=== PATIENT | male | born 1960 | race Caucasian/White ===

== ENCOUNTER 2016-07-21 15:16 | Inpatient (IN) | payer OTHER ==
[~2016-07-21] VITALS: Ht 165.1 cm; Wt 61.7 kg
[~2016-07-21 15:16] MED LIST: OXYCODONE HCL5 M1 PO
--- NOTE | 2016-07-21 15:22 | NUR ---
BIBA FROM HOME C/C LOW BACK PAIN RADIATING DOWN LEFT LEG, +SENSATION. STATES PAIN IS ACHING AND SHOOTING TO L HIP. HX METASTATIC LUNG CA, NO LONGER IN TREATMENT. PT REPORTS HE SLID ONTO HIS FLOOR AND HAS BEEN ON HIS SIDE ON THE FLOOR FOR 2 1/2 DAYS. DOES REPORT HE WAS ABLE TO EAT AND DRINK AND TOOK OXY FOR PAIN. 1PPD SMOKER. ARRIVES TACHY 120'S AND O2 SAT STABLE 98% ROOM AIR. AAOX3
--- NOTE | 2016-07-21 15:27 | NUR ---
PT STATES HE WAS DIAGNOSED WITH LUNG CA 8 MONTHS AGO AND REFUSED SEEING ONCOLOGIST OR SPECIALIST. REFUSING TREATMENT OR ONCOLOGY INTERVENTION. 2PPD SMOKER, AMDENDMENT FROM PREVIOUS NOTE. PT REPORTS PAIN IS 15/10 TO LOW BACK AND L HIP.
[2016-07-21 15:39] LABS: ABSOLUTE BASOPHIL COUNT 0.1 /CUMM (0.0-0.2); ABSOLUTE EOSINOPHIL COUNT 0.2 /CUMM (0.0-0.7); ABSOLUTE GRANULOCYTE CT 7.5 /CUMM (1.4-6.5); ABSOLUTE LYMPH COUNT 1.2 /CUMM (1.2-3.4); ABSOLUTE MONOCYTE COUNT 0.8 /CUMM (0.10-0.60); BASOPHIL % 0.5 % (0.0-2.0); EOSINOPHIL % 1.7 % (0-5); GRANULOCYTE % 77.5 % (42.2-75.2); HEMATOCRIT 30.5 % (42-52); MEAN CORPUSCULAR HGB 25.1 PG (27.0-31.0); MEAN CORPUSCULAR HGB CONC 32.1 G/DL (33.0-37.0); MEAN CORPUSCULAR VOLUME 78.3 FL (80.0-94.0); MEAN PLATELET VOLUME 7.8 FL (7.4-10.4); PLATELET COUNT 475 /CUMM (130-400); RBC DISTRIBUTION WIDTH 17.2 % (11.5-14.5); RED BLOOD CELL CT 3.89 /CUMM (4.70-6.10); WHITE BLOOD CELL COUNT 9.6 /CUMM (4.8-10.8)
--- NOTE | 2016-07-21 15:43 | ED GENERAL ADULT ---
History of Present Illness General Chief Complaint: Low Back Pain/Injury Stated Complaint: LOW BACK PAIN Source: patient, old records, EMS Exam Limitations: no limitations Vital Signs & Intake/Output Vital Signs & Intake/Output Vital Signs Date Time Temp Pulse Resp B/P Pulse O2 O2 Flow FiO2 Ox Delivery Rate 07/24 0630 99.4 110 20 114/70 91 Room Air 07/24 0000 99.6 98 20 120/70 /15 0000 94 / 2142 99.6 98 20 120/70 94 07/23 1658 Room Air 07/23 1525 99.2 115 20 128/74 90 Room Air 07/23 1400 99.2 115 20 128/74 07/23 1000 98.9 108 20 120/64 /14 1000 98.9 108 20 120/64 87 Room Air 07/23 0759 98.6 112 20 100/68 90 Room Air ED Intake and Output 07/24 0000 07/23 1200 Intake Total 2125 800 Output Total 700 925 Balance 1425 -125 Intake, IV 1125 600 Intake, Oral 1000 200 Output, Urine 700 925 Patient 136 lb Weight Allergies Coded Allergies: clarithromycin (From BIAXIN) (Severe, FACE AND THROAT SWELLING 07/21/16) Triage Note: BIBA FROM HOME C/C LOW BACK PAIN RADIATING DOWN LEFT LEG, +SENSATION. STATES PAIN IS ACHING AND SHOOTING TO L HIP. HX METASTATIC LUNG CA, NO LONGER IN TREATMENT. PT REPORTS HE SLID ONTO HIS FLOOR AND HAS BEEN ON HIS SIDE ON THE FLOOR FOR 2 1/2 DAYS. DOES REPORT HE WAS ABLE TO EAT AND DRINK AND TOOK OXY FOR PAIN. 1PPD SMOKER. ARRIVES TACHY 120'S AND O2 SAT STABLE 98% ROOM AIR. AAOX3 Triage Nurses Notes Reviewed? yes HPI: Patient is a 56 year old male with history of metastatic lung cancer, arthritis, fibromyalgia. Presents complaining of severe low back pain and severe pain radiating into his left hip, and thigh. Patient reports he was sitting on the couch when he had sudden onset of severe pain. Patient then slid off of the couch onto the ground. Patient was on the floor for 2-3 days before he called 911. Patient had a friend that was helping him, but he would not let his friend call 911 until today. Patient took his oxycodone this morning at 0530 without improvement. Pain is currently 10/10, sharp, shooting pain worsens with movement and palpation. Patient denies head injury, loss of consciousness, abnormal bleeding, numbness. Patient is not undergoing treatment for his cancer. (JOSE BOX) Reconcile Medications Albuterol Sulfate (Proventil Hfa) 90 MCG HFA.AER.AD 2 PUFF INH PRN SOB ( Reported) Budesonide/Formoterol Fumarate (Symbicort 160-4.5 Mcg Inhaler) 160 MCG-4.5 MCG/ ACTUATION HFA.AER.AD 2 PUFF INH BID LUNG CA/SOB (Reported) Furosemide 40 MG TABLET 1 TAB PO DAILY KIDNEY HEALTH (Reported) Oxycodone HCl 30 MG TABLET 1 TAB PO PRN PAIN (Reported) Potassium Chloride 20 MEQ TAB.ER.PRT 1 TAB PO DAILY SUPP (Reported) Prednisone 10 MG TABLET 1 TAB PO DAILY PNA (Reported) (SONIDO RODRIGUEZ MD) Past History Travel History Traveled to [place] past 21 day No Medical History Any Pertinent Medical History? see below for history Neurological: FIBROMYALGIA EENT: NONE Cardiovascular: hypertension Respiratory: LUNG CA Gastrointestinal: NONE Hepatic: NONE Renal: NONE Musculoskeletal: rheumatoid arthritis Psychiatric: NONE Endocrine: NONE Blood Disorders: NONE Cancer(s): NONE Surgical History Surgical History: multiple orthopedic surgeries Psychosocial History What is your primary language Ukrainian Tobacco Use: Current Daily Use Daily Tobacco Use Amount/Type: => 5 Cigarettes daily ETOH Use: occasional use Illicit Drug Use: denies illicit drug use Family History Hx Contributory? No (JOSE BOX) Review of Systems Review of Systems Constitutional: Reports: weakness. Denies: chills, fever. EENTM: Reports: no symptoms. Respiratory: Denies: cough, short of breath. Cardiovascular: Denies: chest pain, syncope. GI: Denies: abdominal pain, diarrhea, vomiting. Genitourinary: Reports: no symptoms. Musculoskeletal: Reports: see HPI, back pain, joint pain (left hip). Skin: Reports: no symptoms. Neurological/Psychological: Denies: headache, numbness, paresthesia. Hematologic/Endocrine: Denies: bruising, bleeding. Immunologic/Allergic: Denies: splenectomy. (JOSE BOX) Physical Exam Physical Exam General Appearance: alert, awake Head: atraumatic, normal appearance Eyes: Bilateral: normal appearance, PERRL, EOMI. Ears, Nose, Throat: normal pharynx, normal ENT inspection, hearing grossly normal Neck: normal inspection, supple, full range of motion, no midline tenderness Respiratory: normal breath sounds, chest non-tender, no respiratory distress, lungs clear Cardiovascular: tachycardia, regular rhythm, no murmur Peripheral Pulses: 2+ radial (L) Gastrointestinal: soft, non-tender Back: normal inspection, normal range of motion, tenderness midline lumbar and sacral Extremities: normal inspection, normal capillary refill, normal range of motion, tenderness left hip laterally and left mid femur. Pain increases with left hip flexion Neurologic/Psych: awake, alert, oriented x 3 Skin: intact, normal color, warm/dry Lymphatic: no anterior cervical tomás Core Measures ACS in differential dx? No CVA/TIA Diagnosis: No Severe Sepsis Present: No Septic Shock Present: No (JOSE BOX) Progress Differential Diagnoses I considered the following diagnoses in my evaluation of the patient: Rhabdomyolysis, hip fracture, compression fracture, sacral fracture, pathologic fracture, electrolyte abnormality, cord compresison, cauda equina. Plan of Care: Orders Procedure Date/time Status Lab Add-on Test 07/23 0704 Active ALBUMIN 07/23 0650 Complete Therapeutic Exercise 07/23 UNK Complete Current Medications Sig/Bonnie Start time Last Medication Dose Stop Time Status Admin Bisacodyl 5 MG DAILY 07/23 1000 AC (Dulcolax) Lorazepam 0 Q1P PRN 07/22 1015 AC (Ativan) Nicotine 21 MG DAILY 07/22 1000 AC (Nicoderm) Polyethylene Glycol 17 GM DAILY 07/22 1000 AC (Miralax) Senna/Docusate Sodium 2 TAB DAILY 07/22 1000 AC (Senokot S) Enoxaparin Sodium 40 MG AT BEDTIME 07/21 2200 AC (Lovenox) Acetaminophen 650 MG Q6P PRN 07/21 2115 AC (Tylenol) Laboratory Tests 07/24/16 0620: Sodium Pending, Potassium Pending, Chloride Pending, Carbon Dioxide Pending, Anion Gap Pending, BUN Pending, Creatinine Pending, BUN/Creatinine Ratio Pending , Calcium Pending, Magnesium Pending 1750: Patient reports pain is improved at rest. With cough and movement pain is severe. Discussed results with patient. Dr. Pinky tolbert to discuss. 07/21/2016 6:16:26 PM: Discussed with neurosurgical ANANT Luna who discussed the case with Dr. Vance: no neurosurgical interventions. Would recommend admission to medicine for pain control, and consult Dr. Valencia for ortho consult tomorrow. 07/21/2016 7:08:55 PM: Patient reevaluated, reports that pain had been improving, has returned and is becoming severe. Additional pain medication ordered. Discussed with Dr. Rodriguez. Hospitalist paged to discuss. (MEGAN NY,JOSE) Diagnostic Imaging: Viewed by Me: Radiology Read. Discussed w/RAD: Radiology Read. Radiology Impression: PATIENT: VIDAL AGUAYO PRESENT AGE: 56 PATIENT ACCOUNT NO: [id number] : 60 LOCATION: [facility] ORDERING PHYSICIAN: JOSE [place] SERVICE DATE: 07/21/16 EXAM TYPE: RAD - XRY-SHOULDER COMPLETE-LEFT EXAMINATION: XR SHOULDER, LEFT CLINICAL INFORMATION: Severe left shoulder pain. History of metastatic cancer. COMPARISON: No relevant prior studies are available for comparison. TECHNIQUE: Three views of the left shoulder. FINDINGS: No fracture or dislocation. Acromioclavicular joint space narrowing with small marginal osteophytes. Glenohumeral joint space narrowing with small marginal osteophytes. No osseous erosion. No abnormal soft tissue calcification. IMPRESSION: 1. No fracture or dislocation. 2. Mild acromioclavicular and glenohumeral osteoarthritis. DICTATED BY: OPAL JOYNER MD DATE/TIME DICTATED:07/21/161616 COOK COLD MEAT:MAURI DATE/TIME TRANSCRIBED:07/21/161616 CONFIDENTIAL, DO NOT COPY WITHOUT APPROPRIATE AUTHORIZATION. <Electronically signed in Other Vendor System> SIGNED BY: OPAL JOYNER MD 07/21/161633, PATIENT: VIDAL AGUAYO PRESENT AGE: 56 PATIENT ACCOUNT NO: [id number] : 60 LOCATION: [facility] ORDERING PHYSICIAN: JOSE [place] SERVICE DATE: 07/21/16 EXAM TYPE: CAT - CT LUMB SPINE WO IV CONTRAST EXAMINATION: CT LUMBAR SPINE WITHOUT CONTRAST CLINICAL INFORMATION: Severe low back pain. History of metastatic disease. COMPARISON: No relevant prior imaging available. TECHNIQUE: Helical non -contrast CT images were obtained through the lumbar spine and 1.25 and 2.5 mm axial reconstructions were reviewed along with sagittal and coronal MPRs. DLP: 304.99 mGy-cm FINDINGS: There is an acute sacral fracture with a pronounced sagittal component extending through the S1 sacral body best visualized on coronal image 46 of 80 series 602. Nondisplaced acute fractures are also suspected to involve both sacral ala. There is anatomic alignment and position of the vertebral bodies and posterior elements of the lumbar spine in the sagittal dimension. Vertebral body heights are preserved. Intervertebral disc spaces are maintained. No worrisome lytic or blastic osseous lesion is visualized within the [id number] this examination. At T12-L1, and L1-L2 the annular contours are normal. No canal or neuroforaminal compromise at these 2 levels. At L2-L3 there is slight diffuse annular bulge. No canal stenosis. No foraminal nerve root compression. At L3-L4 there is a slight diffuse annular bulge. No canal stenosis. No foraminal nerve root compression. At L4-L5 there is a shallow central protrusion superimposed upon a diffusely bulging disc causing indentation of the ventral thecal sac. Mild bilateral facet degenerative change. No canal stenosis. No foraminal nerve root compression. At L5-S1 there is an asymmetric annular bulge to the left. Bilateral facet degenerative change. No canal stenosis. No foraminal nerve root compression. Limited visualization of the retroperitoneal structures reveals a few nonobstructive calculi within the calyces of both kidneys. Calcified atheromatous plaque involves the infrarenal abdominal aorta and iliac vessels. There is a focal ectatic segment of the left common iliac artery that measures 1.4 cm in diameter. IMPRESSION: There is an acute sacral fracture with a pronounced sagittal component extending through the S1 sacral body. Nondisplaced acute fractures are also suspected to involve both sacral ala. Although there is no clear evidence of obvious lytic changes within the sacrum the possibility of a pathological fracture cannot be excluded particularly with the clinical history of metastatic disease. An MRI of the pelvis without and with contrast may be necessary for better anatomic characterization of this finding. There is a focal ectatic segment of the left common iliac artery that measures 1.4 cm in diameter. Nonobstructing calculi are visualized within the calyces of both kidneys. DICTATED BY: LAUREN HE,SANDRA Greenfield DATE/TIME DICTATED:07/21/161650 COOK COLD MEAT:MAURI DATE/TIME TRANSCRIBED:07/21/161650 CONFIDENTIAL, DO NOT COPY WITHOUT APPROPRIATE AUTHORIZATION. <Electronically signed in Other Vendor System> SIGNED BY: SANDRA AGUILAR MD 07/21/161704, PATIENT: VIDAL AGUAYO PRESENT AGE: 56 PATIENT ACCOUNT NO: [id number] : 60 LOCATION: [facility] ORDERING PHYSICIAN: JOSE [place] SERVICE DATE: 07/21/16 EXAM TYPE: CAT - CT LOWER EXT WO IV CONTRAST EXAMINATION: CT LOWER EXTREMITY WITHOUT CONTRAST, LEFT CLINICAL INFORMATION: Left hip pain following a fall to the floor 2-3 days ago. Metastatic lung cancer. Evaluate for a fracture, bone lesion. COMPARISON: No relevant prior studies are available for comparison. TECHNIQUE: Axial CT images of the left femur were acquired. Sagittal and coronal reconstructions were provided and reviewed. DLP: 2192.07 mGy-cm. FINDINGS: BONES : No fracture or dislocation. No significant joint space narrowing. Small acetabular marginal osteophytes and peripheral subchondral cysts. No lytic or blastic osseous lesion. MUSCLES/TENDONS: Mild diffuse muscle atrophy. The visualized muscles and tendons appear grossly intact. SOFT TISSUES: No abnormal soft tissue mass or fluid collection. The visualized pelvic structures are unremarkable. There are atherosclerotic calcifications within the common iliac artery. IMPRESSION: 1. No fracture. 2. No lytic or blastic osseous lesion. 3. Mild left hip osteoarthritis. DICTATED BY: OPLA JOYNER MD DATE/TIME DICTATED:07/21/161641 COOK COLD MEAT:MAURI DATE/TIME TRANSCRIBED:1641 CONFIDENTIAL, DO NOT COPY WITHOUT APPROPRIATE AUTHORIZATION. < Electronically signed in Other Vendor System> SIGNED BY: OPAL JOYNER MD 07/21/161654 Initial ED EKG: sinus tachycardia 117 bpm, normal axis, normal intervals, no acute st/t wave changes Rhythm Strip: sinus tachycardia (JOSE BOX) Departure Departure Time of Disposition: 1917 Disposition: STILL A PATIENT Condition: Stable Clinical Impression Primary Impression: Sacral fracture, closed Qualifiers: Encounter type: initial encounter Zone of sacrum fracture: unspecified portion of sacrum Qualified Code: S32.10XA - Unspecified fracture of sacrum, initial encounter for closed fracture Secondary Impressions: Intractable back pain Referrals: PATIENT HAS NO PRIMARY CARE DR Departure Forms: Customer Survey General Discharge Information Admission Note Spoke With: SHARMILA MARCUM MD Documentation of Exam: Documentation of any treatments & extenuating circumstances including Concerns Regarding Discharge (functional status, medication knowledge or non-compliance, living conditions, etc.) that warrant an admission rather than observation: Requiring parenteral pain control, orthopedic consultation, physical therapy consultation. Patient unable to ambulate despite doses of IV pain medication. Unsafe for discharge. (JOSE BOX) PA/PROGRAM ARRANGER Co-Sign Statement Statement: ED Attending supervision documentation- X I saw and evaluated the patient. I have also reviewed all the pertinent lab results and diagnostic results. I agree with the findings and the plan of care as documented in the PA's/PROGRAM ARRANGER's documentation. [] I have reviewed the ED Record and agree with the PA's/PROGRAM ARRANGER's documentation. [] Additions or exceptions (if any) to the PAs/PROGRAM ARRANGER's note and plan are summarized below: [] (JENNIFER HE,SONIDO) Critical Care Note Critical Care Note Critical Care Time: non-applicable (JOSE BOX)
--- NOTE | 2016-07-21 15:43 | NUR ---
ANANT GUZMAN AT BEDSIDE FOR EVAL
--- NOTE | 2016-07-21 15:55 | NUR ---
MEDICTED PER eMAR AND PT TO XRAY
[2016-07-21] MEDS ORDERED: OXYCODONE HCL15 M1 PO (15:56)
[2016-07-21] MEDS ORDERED: SYMBICORT 16010.2 GM INH (15:57)
[2016-07-21] MEDS ORDERED: PROVENTIL HFA6.7 GM INH (15:57)
[2016-07-21] MEDS ORDERED: PREDNISONE10 M2 PO (15:58)
[2016-07-21] MEDS ORDERED: POTASSIUM CHLO20 ME2 PO (15:58)
--- NOTE | 2016-07-21 16:15 | NUR ---
PT DIRECTLY TO CT FROM RADIOLOGY
--- NOTE | 2016-07-21 16:34 | RADIOLOGY REPORT ---
EXAMINATION: XR SHOULDER, LEFT CLINICAL INFORMATION: Severe left shoulder pain. History of metastatic cancer. COMPARISON: No relevant prior studies are available for comparison. TECHNIQUE: Three views of the left shoulder. FINDINGS: No fracture or dislocation. Acromioclavicular joint space narrowing with small marginal osteophytes. Glenohumeral joint space narrowing with small marginal osteophytes. No osseous erosion. No abnormal soft tissue calcification. IMPRESSION: 1. No fracture or dislocation. 2. Mild acromioclavicular and glenohumeral osteoarthritis.
--- NOTE | 2016-07-21 16:55 | CT SCAN REPORT ---
EXAMINATION: CT LOWER EXTREMITY WITHOUT CONTRAST, LEFT CLINICAL INFORMATION: Left hip pain following a fall to the floor 2-3 days ago. Metastatic lung cancer. Evaluate for a fracture, bone lesion. COMPARISON: No relevant prior studies are available for comparison. TECHNIQUE: Axial CT images of the left femur were acquired. Sagittal and coronal reconstructions were provided and reviewed. DLP: 2192.07 mGy-cm. FINDINGS: BONES: No fracture or dislocation. No significant joint space narrowing. Small acetabular marginal osteophytes and peripheral subchondral cysts. No lytic or blastic osseous lesion. MUSCLES/TENDONS: Mild diffuse muscle atrophy. The visualized muscles and tendons appear grossly intact. SOFT TISSUES: No abnormal soft tissue mass or fluid collection. The visualized pelvic structures are unremarkable. There are atherosclerotic calcifications within the common iliac artery. IMPRESSION: 1. No fracture. 2. No lytic or blastic osseous lesion. 3. Mild left hip osteoarthritis.
--- NOTE | 2016-07-21 17:05 | CT SCAN REPORT ---
EXAMINATION: CT LUMBAR SPINE WITHOUT CONTRAST CLINICAL INFORMATION: Severe low back pain. History of metastatic disease. COMPARISON: No relevant prior imaging available. TECHNIQUE: Helical non-contrast CT images were obtained through the lumbar spine and 1.25 and 2.5 mm axial reconstructions were reviewed along with sagittal and coronal MPRs. DLP: 304.99 mGy-cm FINDINGS: There is an acute sacral fracture with a pronounced sagittal component extending through the S1 sacral body best visualized on coronal image 46 of 80 series 602. Nondisplaced acute fractures are also suspected to involve both sacral ala. There is anatomic alignment and position of the vertebral bodies and posterior elements of the lumbar spine in the sagittal dimension. Vertebral body heights are preserved. Intervertebral disc spaces are maintained. No worrisome lytic or blastic osseous lesion is visualized within the [id number] this examination. At T12-L1, and L1-L2 the annular contours are normal. No canal or neuroforaminal compromise at these 2 levels. At L2-L3 there is slight diffuse annular bulge. No canal stenosis. No foraminal nerve root compression. At L3-L4 there is a slight diffuse annular bulge. No canal stenosis. No foraminal nerve root compression. At L4-L5 there is a shallow central protrusion superimposed upon a diffusely bulging disc causing indentation of the ventral thecal sac. Mild bilateral facet degenerative change. No canal stenosis. No foraminal nerve root compression. At L5-S1 there is an asymmetric annular bulge to the left. Bilateral facet degenerative change. No canal stenosis. No foraminal nerve root compression. Limited visualization of the retroperitoneal structures reveals a few nonobstructive calculi within the calyces of both kidneys. Calcified atheromatous plaque involves the infrarenal abdominal aorta and iliac vessels. There is a focal ectatic segment of the left common iliac artery that measures 1.4 cm in diameter. IMPRESSION: There is an acute sacral fracture with a pronounced sagittal component extending through the S1 sacral body. Nondisplaced acute fractures are also suspected to involve both sacral ala. Although there is no clear evidence of obvious lytic changes within the sacrum the possibility of a pathological fracture cannot be excluded particularly with the clinical history of metastatic disease. An MRI of the pelvis without and with contrast may be necessary for better anatomic characterization of this finding. There is a focal ectatic segment of the left common iliac artery that measures 1.4 cm in diameter. Nonobstructing calculi are visualized within the calyces of both kidneys.
--- NOTE | 2016-07-21 17:28 | NUR ---
MEDICATED WITH TORADOL AND ADDITIONAL DILAUDID PER eMAR
--- NOTE | 2016-07-21 17:48 | NUR ---
ANANT GUZMAN AT BEDSIDE TO DISCUSS TEST RESULTS
--- NOTE | 2016-07-21 19:03 | NUR ---
ANANT GUZMAN AT BEDSIDE FOR REEVAL. PT REPORTS PAIN AND REQUESTING MORE MEDICINE
--- NOTE | 2016-07-21 19:20 | NUR ---
MEDICATED WITH ADDITIONAL DILAUDID PER eMAR AND PT INFORMED OF PLAN FOR ADMISSION
--- NOTE | 2016-07-21 20:00 | NUR ---
HOUSE STAFF AT BEDSIDE FOR EVALUATION
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
--- NOTE | 2016-07-21 20:43 | NUR ---
HOUSE STAFF AT BEDSIDE
--- NOTE | 2016-07-21 20:53 | NUR ---
Emergency Dept [facility] Admit Note: To be admitted to [facility] by DR MARCUM with SACRAL FRACTURE as the diagnosis, to [facility], ROOM 223-01 location. Nursing Computer Technologist and admitting notified 07/21/16 at [facility]
[2016-07-21] MEDS ORDERED: FUROSEMIDE40 M1 PO (21:16)
--- NOTE | 2016-07-21 21:28 | NUR ---
TRANSPORT HERE FOR PT
--- NOTE | 2016-07-21 21:29 | NUR ---
MED WITH DILAUDID PER eMAR
[2016-07-21 22:00] VITALS: BP 143/96
[2016-07-21 22:34] VITALS: BP 154/90
[2016-07-22] VITALS (7 sets, daily range): BP systolic 130–154; BP diastolic 80–90
--- NOTE | 2016-07-22 00:04 | NUR ---
PT ARRIVED TO FLOOR AT . 2144. LUNGS DIMINISHED, NO C/O SOB, CP. C/O PAIN IMPROVING SINCE LAST INSPECTOR SET UP AND LAY OUT. NS @ 75ML/HR PROVIDED PER EMAR. BED LOW, LOCKED, CALL ROSALES WITHIN REACH, BED ALARM ENGAGED. 1 PACK CIGGARETTES AND 1 MANAGER RADIATION IN MED ROOM. PT AWARE, VERBALIZED UNDERSTANDING OF RECEIVING UPON D/C. PT DOWN TO CT SCAN PER ORDER. MAINTAIN SAFETY PRECATIONS, PAIN MANAGEMENT.
--- NOTE | 2016-07-22 03:20 | Admission Certification ---
Admission Certification Certification Statement - As attending physician, I certify that at the time of - admission, based on clinical presentation, severity of - symptoms, need for further diagnostic testing and - therapeutic interventions, and risk of adverse outcomes - without in-hospital treatment, in my clinical assessment, - this patient requires an acute hospital stay for a minimum - of two nights or longer. I have also considered psychsocial - factors such as support system, advanced age, financial - issues, cognitive issues, and failed out-patient treatments, - past re-admission history, safety of patient, and lack of - compliance as applicable. Specific rationale supporting this admission is: Sacral fracture, severe pain
--- NOTE | 2016-07-22 07:19 | PN- Housestaff ---
[facility] [facility] 07/22/16 0712: Subjective Follow-up For: Fall Sacral fracture ? History of lung cancer Subjective: Patient seen and examined this morning. States that his back pain is a 7 out of 10. Denies any saddle anesthesia or incontinence. However still denies a rectal exam to check for sphincter tone. States that he was diagnosed with lung cancer over 8 months ago however chooses not to pursue any further testing. Review of Systems Constitutional: Reports: see HPI. Objective Last 24 Hrs of Vital Signs/I&O Vital Signs Date Time Temp Pulse Resp B/P Pulse O2 O2 Flow FiO2 Ox Delivery Rate 07/22 0630 99.6 108 20 136/84 95 Room Air 07/22 0400 98.3 110 24 154/90 07/22 0000 98.3 110 24 154/90 07/22 0000 94 Room Air 07/21 2234 98.3 110 24 154/90 94 Room Air 07/21 2200 97.8 106 20 143/96 07/21 2035 97.8 110 20 143/96 94 Room Air 07/21 1908 98.3 112 18 137/87 98 Room Air 07/21 1727 97.8 108 16 158/95 97 Room Air 07/21 1530 98 Room Air 07/21 1520 125 18 125/84 98 Room Air Intake & Output 07/22 0800 07/22 0000 07/21 1600 Intake Total 600 75 Output Total Balance 600 75 Intake, IV 600 75 Patient 136 lb 136 lb Weight Physical Exam General Appearance: Alert, Oriented X3, Cooperative, Mild Distress Skin: No Rashes, No Breakdown HEENT: Atraumatic, PERRLA, EOMI Cardiovascular: Regular Rate, Normal S1, Normal S2 Lungs: Clear to Auscultation, Normal Air Movement Abdomen: Normal Bowel Sounds, Soft, No Tenderness Rectal pt deferred Current Medications: Current Medications Sig/Bonnie Start time Last Medication Dose Route Stop Time Status Admin Acetaminophen 650 MG Q6P PRN 07/21 2114 AC PO Acetaminophen/ 1 TAB Q6P PRN 07/21 2114 AC Hydrocodone Bitart PO Albuterol Sulfate 2 PUF Q4 HRS NEEDED PRN 07/21 2129 AC 07/22 INH 0525 Budesonide/ 2 PUF BID 07/21 2199 AC 07/22 Formoterol Fumarate INH 0006 Enoxaparin Sodium 40 MG AT BEDTIME 02/12 2200 AC SC Ergocalciferol 50,000 IU Q168 07/22 1000 AC PO Hydromorphone HCl 1 MG Q3P PRN 07/21 2141 AC 07/22 IV 0518 Hydromorphone HCl 0 .STK-MED ONE 07/21 2125 DC .ROUTE Hydromorphone HCl 2 MG Q3 PRN 07/21 2114 DC 07/21 IV 07/21 Hydromorphone HCl 0 .STK-MED ONE 07/21 1918 DC .ROUTE Hydromorphone HCl 2 MG ONCE ONE 07/21 191 DC 07/21 IV 07/21 191 1920 Hydromorphone HCl 0 .STK-MED ONE 07/21 1723 DC .ROUTE Hydromorphone HCl 1 MG ONCE ONE 07/21 1715 DC 07/21 IV 07/21 1716 1727 Hydromorphone HCl 0 .STK-MED ONE 07/21 1553 DC .ROUTE Hydromorphone HCl 1 MG ONCE ONE 07/21 1545 DC 07/21 IV 07/21 1546 1555 Ketorolac 0 .STK-MED ONE 07/21 1723 DC Tromethamine .ROUTE Ketorolac 30 MG ONCE ONE 07/21 1715 DC 07/21 Tromethamine IV 07/21 1716 1727 Lidocaine 1 PAT Q24H 07/21 2200 AC EXT Nicotine 21 MG DAILY 07/22 1000 AC TOP Oxycodone HCl 30 MG Q6 07/21 2359 AC 07/22 PO 0548 Polyethylene Glycol 17 GM DAILY 07/22 1000 AC PO Senna/Docusate Sodium 2 TAB DAILY 07/22 1000 AC PO Sodium Chloride 1,000 ML Q13H 07/21 2145 AC 07/21 IV 2220 Sodium Chloride 1,000 ML BOLUS ONE 07/21 1545 DC 07/21 IV 07/21 1644 1550 Last 24 Hrs of Lab/Celestine Results Last 24 Hrs of Labs/Mics: Laboratory Tests 07/21/16 1828: Lactic Acid Cancelled 07/21/16 1530: Anion Gap 10, Estimated GFR > 60, BUN/Creatinine Ratio 15.7, Glucose 106 H, Lactic Acid 0.9, Calcium 10.3 H, Iron 16 L, TIBC 339, Ferritin 46.8, Total Bilirubin 0.6, AST 24, ALT 30, Alkaline Phosphatase 234 H, Creatine Kinase < 20 L, Troponin I 0.02, Total Protein 6.8, Albumin 2.7 L, Globulin 4.1, Albumin/ Globulin Ratio 0.7 L, 25-OH Vitamin D Total < 4.2 L, PTH Intact < 6.3 L, CBC w Diff NO MAN DIFF REQ, RBC 3.89 L, MCV 78.3 L, MCH 25.1 L, RDW 17.2 H, MPV 7.8, Gran % 77.5 H, Lymphocytes % 12.3 L, Monocytes % 8.0, Eosinophils % 1.7, Basophils % 0.5, Absolute Granulocytes 7.5 H, Absolute Lymphocytes 1.2, Absolute Monocytes 0.8 H, Absolute Eosinophils 0.2, Absolute Basophils 0.1, PUBS MCHC 32.1 L, Serum Alcohol < 10.0 Assessment/Plan Assessment: Assessment- 1. Sacral fracture 2. Hypercalcemia, ? Malignancy 3. Severe vitamin D deficiency 4. ? lung cancer 5. COPD 6. Nicotine dependence Plan- Pain meds that aggressive bowel regimen PT evaluation Orthopedic consult IV fluids and repeat labs Will start on Drisdol 50,000 once a week Patient does not want to be seen by oncology We'll get a CAT scan of the abdomen, pelvis and chest to rule out metastases Continue inhaler/nebulizer Continue nicotine patch Problem List: 1. FH: lung cancer 2. Metastatic lung cancer (metastasis from lung to other site) 3. Intractable back pain 4. Sacral fracture, closed 5. Chronic pain Pain Ratin Pain Location: back Pain Goal: Pain 4 or less Pain Plan: per emr Tomorrow's Labs & Rationales: per emr GIUSEPPE FRANKS MD 07/22/16 1452: Attending MD Review Statement Attending Statement Attending MD Statement: examined this patient, discuss w/resident/PA/LOGISTICS LEAD, agreed w/resident/PA/LOGISTICS LEAD, reviewed EMR data (avail), discussed with nursing, amended to note Attending Assessment/Plan: The patient was seen and discussd with house staff. Patient does not want Oncology consult and does not want any treatment for his cancer. Will need to get pain under control and PT evaluation.
--- NOTE | 2016-07-22 08:42 | CT SCAN REPORT ---
EXAMINATION: CT CHEST WITHOUT/WITH IV CONTRAST CT ABDOMEN AND PELVIS WITHOUT/WITH IV CONTRAST CLINICAL INFORMATION: 56-year-old male with lung mass/cancer, hemoptysis. Sacral fracture after recent fall. Evaluate for abdominal and pelvic metastases and retroperitoneal bleed. COMPARISON: None TECHNIQUE: Initially, noncontrast multidetector CT imaging examination of the chest, abdomen and pelvis was performed. Thereafter, repeat imaging of the chest, abdomen and pelvis was performed with intravenous administration of 95 mL of Optiray 320 nonionic contrast material. Axial images are presented at 0.625 mm and 5 mm slice thickness. Coronal and sagittal reformatted images were generated at the technologist's workstation and submitted for review. DLP: 750 mGy-cm FINDINGS: CHEST - LUNGS and PLEURA: Moderate centrilobular and paraseptal emphysema. Small amount of mucus is present along the posterior wall of the trachea and posterior wall of the mainstem bronchi. Also, secretions are present within the left upper lobe bronchus. There is masslike consolidation with air bronchograms around the hilum and extending around bronchi of the upper lobe/lingula. Tumor encases the left pulmonary artery at the hilum and appears inseparable from lymphadenopathy of the hilum, aortopulmonary window and prevascular space of the mediastinum. The scattered lucencies within the region of consolidation in the left upper lobe likely represent underlying emphysematous changes rather than cavitary changes. There is interlobular septal thickening within the left upper lobe. Also, there are nonspecific reticular, reticulonodular and groundglass opacities surrounding the region of consolidation in the upper lobe/lingula. This could represent infiltrative tumor and/or superimposed pneumonia. Reticulonodular and groundglass opacities are seen to a lesser extent within the left lower lobe. Scattered peripheral subpleural reticular and groundglass opacities are present within the right upper, middle and lower lobes. Small, 0.3 cm and 0.4 cm noncalcified nodules are present within the right upper lobe (images 119 and 130, series 4). There is a trace left pleural effusion. MEDIASTINUM: Cardiac chambers, pulmonary arteries and thoracic aorta are normal in caliber. No pericardial effusion. The esophagus is grossly unremarkable. Within the visualized lower neck, thyroid gland appears mildly atrophied and without discrete nodules. LYMPHATICS: No pathologic sized axillary lymph nodes. The paratracheal lymph nodes are in the normal size range. There are mildly enlarged lymph nodes in the subcarinal region. Tumor and/or lymphadenopathy is inseparable from the mediastinal pleura at the level of the aortic arch and aortopulmonary window. Also, lymphadenopathy is present at the left hilum. The tumor and/or clustered lymph nodes in the prevascular space of the mediastinum measures 3 cm AP and 4.1 cm transverse (image 20, series 2). This tissue exhibits central hypoattenuation suggestive of necrosis. This is confluent with the lymphadenopathy of the aortopulmonary window which measures up to 2.6 cm short axis dimension (image 18, series 6). CHEST WALL/BONES: Streak artifact is produced by the fixation hardware of the right clavicle. There is spondylosis of the thoracic spine. The thoracic vertebra have well preserved height and alignment. No acute fracture or subluxation. A small, 0.6 cm lucency in the region of junction of the right pedicle and vertebral body of T9 is likely a small hemangioma. No suspicious appearing lytic or blastic lesions within the thorax. ABDOMEN AND PELVIS - HEPATOBILIARY: Liver has normal size, contour and attenuation. No focal hepatic lesion or intrahepatic bile duct dilatation. Gallbladder has small calcified stones. PANCREAS: Unremarkable. SPLEEN: Unremarkable. ADRENAL GLANDS: Unremarkable. KIDNEYS, URETERS, BLADDER: Kidneys have normal size, cortical thickness and cortical attenuation. 0.2 cm calyceal stones are present within the right upper pole and left lower pole. No hydroureteronephrosis or perinephric edema. The ureters and urinary bladder are unremarkable. GASTROINTESTINAL TRACT: Stomach is unremarkable. Loops of bowel are normal in caliber. No evidence of inflammation or obstruction along the gastrointestinal tract. No ascites or pneumoperitoneum. ABDOMINAL WALL: Unremarkable. VASCULAR: There is atherosclerotic calcification of the abdominal aorta and iliac arteries without abdominal aortic aneurysm. The dilated left common iliac artery measures 1.4 cm AP diameter. No retroperitoneal hematoma. Inferior vena cava is normal. LYMPH NODES: No pathologic sized lymph nodes within the abdomen or pelvis. PELVIC VISCERA: Prostate gland is unremarkable. No pelvic free fluid. OSSEOUS STRUCTURES: Lumbar vertebra have normal height and alignment. There is a nondisplaced, sagittally oriented fracture involving S1/S2 vertebra. Also, there is suggestion of a nondisplaced fracture involving the anterior left sacral ala. No underlying suspicious lytic or osteoblastic sacral lesions. Small, nonaggressive sclerotic foci in the left iliac bone are likely bone islands. There is a focal defect within the cortical bone at the anterolateral aspect of the right iliac bone with underlying area of geographic lucency measuring 1.1 cm AP and 0.9 cm transverse. There is no extraosseous soft tissue mass in this location, and this might be related to prior intervention or biopsy in this area (image 698, series 8). There is no convincing pelvic bone metastasis. IMPRESSION: 1. Masslike consolidation surrounding the left hilum is inseparable from lymphadenopathy of the hilum, aortopulmonary window and prevascular space of the mediastinum. This is consistent with history of lung carcinoma. The consolidation, groundglass and reticular opacity in the left upper lobe/lingula probably represents postobstructive pneumonia. Some of the scattered reticulonodular opacities are nonspecific but might represent infectious/inflammatory changes rather than infiltrative neoplasm. Nonspecific small noncalcified nodules are present in the right upper lobe. There is a trace left pleural effusion. 2. No evidence of metastatic disease within the abdomen or pelvis. 3. Nondisplaced midline sacral fracture at the S1-S2 level without evidence of an underlying suspicious lytic or osteoblastic sacral lesion. 4. Mild aneurysmal dilatation of the left common iliac artery. 5. Small nonobstructing calculi of both kidneys. 6. Cholelithiasis.
--- NOTE | 2016-07-22 09:29 | NUR ---
Physical Therapy: Orders recieved and chart reviewed. Patient refused physical therapy because of pain and fatigue. Stated that he could not even try to walk because of the pain. Will reattempt to see patient as appropriate.
[2016-07-22 10:09] LABS: ABSOLUTE BASOPHIL COUNT 0 /CUMM (0.0-0.2); ABSOLUTE EOSINOPHIL COUNT 0.2 /CUMM (0.0-0.7); ABSOLUTE GRANULOCYTE CT 7.7 /CUMM (1.4-6.5); ABSOLUTE LYMPH COUNT 1.3 /CUMM (1.2-3.4); ABSOLUTE MONOCYTE COUNT 0.9 /CUMM (0.10-0.60); BASOPHIL % 0.4 % (0.0-2.0); EOSINOPHIL % 1.7 % (0-5); GRANULOCYTE % 76.1 % (42.2-75.2); HEMATOCRIT 26.4 % (42-52); MEAN CORPUSCULAR HGB 25.1 PG (27.0-31.0); MEAN CORPUSCULAR VOLUME 78.6 FL (80.0-94.0); MEAN PLATELET VOLUME 8.1 FL (7.4-10.4); PLATELET COUNT 426 /CUMM (130-400); RBC DISTRIBUTION WIDTH 17.4 % (11.5-14.5); RED BLOOD CELL CT 3.35 /CUMM (4.70-6.10); WHITE BLOOD CELL COUNT 10.1 /CUMM (4.8-10.8)
--- NOTE | 2016-07-22 16:36 | Cons- Orthopedic ---
General Information and HPI Consulting Request Date of Consult: 07/22/16 Requested By: GIUSEPPE FRANKS MD History of Present Illness: 56 yr old with intractable low back pain. denies any recent trauma or falls. was diagnosed with terminal lung cancer few months prior. patient is on nursing home steroid use he states. denies any bowel or bladder incontinence. denies any paresthesias. states has pain 10/10 in low back radiating down legs. ct scan shows S1 and sacral ala fractures. Allergies/Medications Allergies: Coded Allergies: clarithromycin (From BIAXIN) (Severe, FACE AND THROAT SWELLING 07/21/16) Home Med List: Albuterol Sulfate (Proventil Hfa) 90 MCG HFA.AER.AD 2 PUFF INH PRN SOB ( Reported) Budesonide/Formoterol Fumarate (Symbicort 160-4.5 Mcg Inhaler) 160 MCG-4.5 MCG/ ACTUATION HFA.AER.AD 2 PUFF INH BID LUNG CA/SOB (Reported) Furosemide 40 MG TABLET 1 TAB PO DAILY KIDNEY HEALTH (Reported) Oxycodone HCl 30 MG TABLET 1 TAB PO PRN PAIN (Reported) Potassium Chloride 20 MEQ TAB.ER.PRT 1 TAB PO DAILY SUPP (Reported) Prednisone 10 MG TABLET 1 TAB PO DAILY PNA (Reported) Past History Medical History Neurological: FIBROMYALGIA EENT: NONE Cardiovascular: hypertension Respiratory: LUNG CA Gastrointestinal: NONE Hepatic: NONE Renal: NONE Musculoskeletal: rheumatoid arthritis Psychiatric: NONE Endocrine: NONE Blood Disorders: NONE Cancer(s): NONE Surgical History Pertinent Surgical History: multiple orthopedic surgeries Family History Relations & Conditions If Any: SISTER FH: lung cancer MOTHER FH: lung cancer FATHER FH: lung cancer Relation not specified for: FH: lung cancer Psychosocial History Where Do You Live? Home Smoking Status: Heavy Tobacco Smoker (1-2 packs per day) ETOH Use: occasional use Illicit Drug Use: denies illicit drug use Living Will? Causins, Cinthia and Jorge are POAs. Patient does not wish for any resuscitation Functional Ability Ambulation: cane, sometimes uses a cane Employment History Employment: Retired Exam & Diagnostic Data Vital Signs and I&O Vital Signs Date Time Temp Pulse Resp B/P Pulse O2 O2 Flow FiO2 Ox Delivery Rate 07/22 1400 98.8 100 20 140/80 07/22 1336 98.8 100 20 140/80 97 Room Air 07/22 1000 98.2 105 20 140/80 07/22 0800 Room Air 07/22 0630 99.6 108 20 136/84 95 Room Air 07/22 0400 98.3 110 24 154/90 07/22 0000 98.3 110 24 154/90 07/22 0000 94 Room Air 07/21 2234 98.3 110 24 154/90 94 Room Air 07/21 2200 97.8 106 20 143/96 07/21 2035 97.8 110 20 143/96 94 Room Air 07/21 1908 98.3 112 18 137/87 98 Room Air 07/21 1727 97.8 108 16 158/95 97 Room Air Intake & Output 07/22 1600 07/22 0800 07/22 0000 07/21 1600 07/21 0800 07/21 0000 Intake Total 825 600 75 Output Total 850 Balance -25 600 75 Intake, IV 525 600 75 Intake, Oral 300 Output, Urine 850 Patient 136 lb 136 lb Weight Physical Exam: tender over low back and sacral region. 5/5 strength bilateral lower extremities. positive sensation to light touch over lower extremities. 5/5 dorsi and plantar flexion strength. skin low back shows no lesions or rashes. CT scan shows sacral ala and S1 body fracture ? metastaic lesion or insufficiency fracture with oil heaterman steroid use. Assessment/Plan Assessment/Plan Sacral fracture insufficiency vs pathological - Consider mri with and without contrast r/o metastatic lesion. - Pain meds for comfort. no surgical intervention - F/u as an outpatient with orthopedics or medicine as no surgical intervention is needed. Consult Acknowledgment - Thank you for your consult request.
[2016-07-23] VITALS (7 sets, daily range): BP systolic 100–128; BP diastolic 64–74
--- NOTE | 2016-07-23 06:31 | PN- Housestaff ---
[facility] [facility] 07/23/16 0631: Subjective Follow-up For: Fall Sacral fracture History of lung cancer Subjective: Patient seen and examined this morning. States that his back pain is an 8 out of 10. Denies any saddle anesthesia or incontinence. However still denies a rectal exam to check for sphincter tone. Review of Systems Constitutional: Reports: see HPI. Objective Last 24 Hrs of Vital Signs/I&O Vital Signs Date Time Temp Pulse Resp B/P Pulse O2 O2 Flow FiO2 Ox Delivery Rate 07/23 0227 99.0 116 20 114/70 94 Room Air 07/22 2353 98.7 115 20 130/86 91 Room Air 07/22 1600 Room Air 07/22 1400 98.8 100 20 140/80 07/22 1336 98.8 100 20 140/80 97 Room Air 07/22 1000 98.2 105 20 140/80 07/22 0800 Room Air Intake & Output 07/23 0800 07/23 0000 07/22 1600 Intake Total 950 825 Output Total 475 400 850 Balance -475 550 -25 Intake, IV 600 525 Intake, Oral 350 300 Output, Urine 475 400 850 Physical Exam General Appearance: Alert, Oriented X3, Cooperative, Mild Distress HEENT: Atraumatic, PERRLA, EOMI Cardiovascular: Regular Rate, Normal S1, Normal S2 Lungs: Clear to Auscultation, Normal Air Movement Abdomen: Normal Bowel Sounds, Soft, No Tenderness Extremities: No Clubbing, No Cyanosis, No Edema Current Medications: Current Medications Sig/Bonnie Start time Last Medication Dose Route Stop Time Status Admin Acetaminophen 650 MG Q6P PRN 07/21 2114 AC PO Acetaminophen/ 1 TAB Q6P PRN 07/21 2114 AC 07/22 Hydrocodone Bitart PO 0749 Albuterol Sulfate 2 PUF Q4 HRS NEEDED PRN 07/21 2130 AC 07/22 INH 0525 Budesonide/ 2 PUF BID 07/21 2199 AC 07/22 Formoterol Fumarate INH 2123 Enoxaparin Sodium 40 MG AT BEDTIME 07/21 2199 AC SC Ergocalciferol 50,000 IU Q168 07/22 1000 AC 07/22 PO 1042 Hydromorphone HCl 1.5 MG Q3P PRN 07/22 1500 AC 07/23 IV 0408 Hydromorphone HCl 1 MG Q3P PRN 07/21 2142 DC 07/22 IV 1335 Lidocaine 1 PAT Q24H 07/21 2200 AC 07/22 EXT 2129 Lorazepam 0 Q1P PRN 07/22 1015 AC IV Nicotine 21 MG DAILY 07/22 1000 AC TOP Oxycodone HCl 30 MG Q4 07/22 1400 AC 07/23 PO 0205 Oxycodone HCl 60 MG TID 07/22 1017 AC 07/22 PO 2123 Oxycodone HCl 30 MG Q6 07/21 2359 DC 07/22 PO 0548 Patient Medication 1 ED .STK-MED ONE 07/22 1419 MI Teaching ED 07/22 1420 Polyethylene Glycol 17 GM DAILY 07/22 1000 AC PO Potassium Chloride 40 MEQ ONCE ONE 07/22 1100 DC 07/22 PO 07/22 1101 1133 Senna/Docusate Sodium 2 TAB DAILY 07/22 1000 AC PO Sodium Chloride 1,000 ML Q13H 07/21 2145 AC 07/23 IV 0019 Last 24 Hrs of Lab/Celestine Results Last 24 Hrs of Labs/Mics: Laboratory Tests 07/22/16 1439: Urine Color YEL, Urine Clarity CLEAR, Urine pH 6.5, Ur Specific [place] 1.010, Urine Protein TRACE H, Urine Ketones TRACE H, Urine Nitrite NEG, Urine Bilirubin NEG, Urine Urobilinogen 1.0, Ur Leukocyte Esterase NEG, Ur Microscopic SEDIMENT EXAMINED, Urine RBC RARE, Urine Mucus RARE, Urine Hemoglobin NEG, Urine Glucose NEG 07/22/16 0730: Anion Gap 11, Estimated GFR > 60, BUN/Creatinine Ratio 16.7, Calcium 9.2, Albumin 2.4 L, CBC w Diff NO MAN DIFF REQ, RBC 3.35 L, MCV 78.6 L, MCH 25.1 L, RDW 17.4 H, MPV 8.1, Gran % 76.1 H, Lymphocytes % 12.7 L, Monocytes % 9.1, Eosinophils % 1.7, Basophils % 0.4, Absolute Granulocytes 7.7 H, Absolute Lymphocytes 1.3, Absolute Monocytes 0.9 H, Absolute Eosinophils 0.2, Absolute Basophils 0, PUBS MCHC 32.0 L Orders Radiology Findings: CT ABDOMEN & PELVIS- IMPRESSION: 1. Masslike consolidation surrounding the left hilum is inseparable from lymphadenopathy of the hilum, aortopulmonary window and prevascular space of the mediastinum. This is consistent with history of lung carcinoma. The consolidation, groundglass and reticular opacity in the left upper lobe/lingula probably represents postobstructive pneumonia. Some of the scattered reticulonodular opacities are nonspecific but might represent infectious/inflammatory changes rather than infiltrative neoplasm. Nonspecific small noncalcified nodules are present in the right upper lobe. There is a trace left pleural effusion. 2. No evidence of metastatic disease within the abdomen or pelvis. 3. Nondisplaced midline sacral fracture at the S1-S2 level without evidence of an underlying suspicious lytic or osteoblastic sacral lesion. 4. Mild aneurysmal dilatation of the left common iliac artery. 5. Small nonobstructing calculi of both kidneys. 6. Cholelithiasis. Assessment/Plan Assessment: Assessment- 1. Sacral fracture 2. Hypercalcemia, ? Malignancy 3. Severe vitamin D deficiency 4. Lung cancer 5. COPD 6. Nicotine dependence Plan- Pain meds with aggressive bowel regimen PT evaluation, patient refused to work with physical therapy yesterday, will try again today Orthopedic consult appreciated, cannot get an MRI as he has metal prosthesis in the shoulder IV fluids, his corrected calcium is 10.6; pending this morning's labs Continue IV fluids Started yesterday on Drisdol 50,000 once a week Patient does not want to be seen by oncology Continue inhaler/nebulizer Continue nicotine patch Will need to consider pain consult Yesterday I spoke personally with his PCP Dr. Yo Rutherford who stated that the patient does take very high doses of narcotics which is roughly 400 mg oxycodone every day Problem List: 1. Metastatic lung cancer (metastasis from lung to other site) 2. Intractable back pain 3. FH: lung cancer 4. Sacral fracture, closed 5. Chronic pain Pain Ratin Pain Location: BACK Pain Goal: Pain 4 or less Pain Plan: PER EMR Tomorrow's Labs & Rationales: PER EMR GIUSEPPE FRANKS MD 07/23/16 6168: Attending MD Review Statement Attending Statement Attending MD Statement: examined this patient, discuss w/resident/PA/[facility] ATTENDANT, agreed w/resident/PA/[facility] ATTENDANT, reviewed EMR data (avail), discussed with nursing, discussed with case mgmt, amended to note Attending Assessment/Plan: The patient was seen and discussed with resident. Pain still difficult to control. Added Gabapentin for neuropathic type pain in thighs/buttocks and started Fentanyl patch. As pain is better controlled will taper IV meds. Patient will most likely need rehab and he is aware. Case management aware.
[2016-07-23 08:01] LABS: ABSOLUTE BASOPHIL COUNT 0 /CUMM (0.0-0.2); ABSOLUTE EOSINOPHIL COUNT 0.2 /CUMM (0.0-0.7); ABSOLUTE GRANULOCYTE CT 8.7 /CUMM (1.4-6.5); ABSOLUTE LYMPH COUNT 1.9 /CUMM (1.2-3.4); BASOPHIL % 0.4 % (0.0-2.0); EOSINOPHIL % 1.5 % (0-5); GRANULOCYTE % 73.5 % (42.2-75.2); HEMATOCRIT 25.8 % (42-52); MEAN CORPUSCULAR HGB 25.2 PG (27.0-31.0); MEAN CORPUSCULAR HGB CONC 32.3 G/DL (33.0-37.0); MEAN CORPUSCULAR VOLUME 77.9 FL (80.0-94.0); MEAN PLATELET VOLUME 8.2 FL (7.4-10.4); PLATELET COUNT 390 /CUMM (130-400); RBC DISTRIBUTION WIDTH 17.5 % (11.5-14.5); WHITE BLOOD CELL COUNT 11.8 /CUMM (4.8-10.8)
--- NOTE | 2016-07-23 20:17 | Discharge Summary ---
Visit Information Visit Dates Admission Date: 07/21/16 Discharge Date: 07/29/16 Hospital Course Course Attending Physician: GIUSEPPE FRANKS MD Primary Care Physician: SOLOMON STYLES MD Hospital Course: This is a 56-year-old male with a past medical history off lung cancer, COPD, every day smoker, heavy alcohol use, chronic arthritis trace and fibromyalgia who presents to the [facility] after having a mechanical fall. The fall resulted in the acute sacral fracture with a pronounced sagittal complement extended through the S1 sacral body. The fracture is nondisplaced and was shown to be involving both sacral magda. The fracture appeared to be mechanical, but the suspicion for pathological fracture was not completely excluded initially. The patient's vitals and labs at the time of admission were as follows: Vitals: Afebrile, tachycardic, mild tachypnea with her 24, BP 154/90, saturating 94% on room air. Exam: A O 3, no acute distress, neck supple, no lymphadenopathy, mucosa dry, no JVD, CVS: S1-S2, tachycardia. RS: Clear to auscultate bilaterally. Abdomen: Soft, NT, ND, bowel sounds present. Neurological exam strength upper extremity 5/5. Strength lower extremity all muscle groups 5/5, tingling numbness of her left hip left lateral and posterior aspect of thigh and left testicle but sensations intact no focal deficit. Patient refused rectal examination for rectal tone. No pitting edema Labs: Hemoglobin 9.8, platelets 475, MCV 78, calcium 10.3, albumin 2.7, alkaline phosphatase 234. The patient was admitted to the hospital general medicine floor and was treated for the following problems 1. Acute sacral fracture 2. Hypercalcemia 3. Microcytic anemia 4. History of lung cancer in the absence of any lung biopsy the patient refused in the past 5. Severe vitamin D deficiency 6. COPD The patient was evaluated for the sacral fracture. We also consulted orthopedics who recommended an MRI which was not possible due to patient previous prosthetic placement. Supportive management for the second fracture was maintained with pain medications . The patient would be discharged on by mouth gabapentin 400 mg 3 times a day last fentanyl patch 100 g every 72 hours plus with the oxycodone 30 mg every 6 when necessary, dilaudid 6mg Q3 PRN PO, and celecoxib 200mg BID PO. The patient hypercalcemia work resolved with IV fluids Patient history of lung cancer and further evaluation the patient clearly refused and doesn't want any treatment or diagnostic modalities at this point. The patient also needs to follow-up with Dr. Neely for the pain management Allergies: Coded Allergies: clarithromycin (From BIAXIN) (Severe, FACE AND THROAT SWELLING 07/21/16) Significant Procedures: None Pertinent Lab Results: Laboratory Tests 07/24 07/23 07/23 0620 0650 0614 Chemistry Sodium (137 - 145 mmol/L) 132 L 135 L Potassium (3.5 - 5.1 mmol/L) 4.5 4.5 Chloride (98 - 107 mmol/L) 96 L 101 Carbon Dioxide (22 - 30 mmol/L) 25 25 Anion Gap (5 - 16) 11 9 BUN (9 - 20 mg/dL) 8 L 8 L Creatinine (0.7 - 1.2 mg/dL) 0.7 0.6 L Estimated GFR (>60 ml/min) > 60 > 60 BUN/Creatinine Ratio (7 - 25 %) 11.4 13.3 Calcium (8.4 - 10.2 mg/dL) 9.2 9.3 Magnesium (1.6 - 2.3 mg/dL) 1.7 1.7 Albumin (3.5 - 5.0 g/dL) 2.5 L 2.4 L Cancelled Hematology CBC w Diff NO MAN DIFF REQ WBC (4.8 - 10.8 /CUMM) 11.8 H RBC (4.70 - 6.10 /CUMM) 3.30 L Hgb (14.0 - 18.0 G/DL) 8.3 L Hct (42 - 52 %) 25.8 L MCV (80.0 - 94.0 FL) 77.9 L MCH (27.0 - 31.0 PG) 25.2 L RDW (11.5 - 14.5 %) 17.5 H Plt Count (130 - 400 /CUMM) 390 MPV (7.4 - 10.4 FL) 8.2 Gran % (42.2 - 75.2 %) 73.5 Lymphocytes % (20.5 - 51.1 %) 15.9 L Monocytes % (1.7 - 9.3 %) 8.7 Eosinophils % (0 - 5 %) 1.5 Basophils % (0.0 - 2.0 %) 0.4 Absolute Granulocytes (1.4 - 6.5 /CUMM) 8.7 H Absolute Lymphocytes (1.2 - 3.4 /CUMM) 1.9 Absolute Monocytes (0.10 - 0.60 /CUMM) 1.0 H Absolute Eosinophils (0.0 - 0.7 /CUMM) 0.2 Absolute Basophils (0.0 - 0.2 /CUMM) 0 PUBS MCHC (33.0 - 37.0 G/DL) 32.3 L 07/22 07/22 1439 0730 Chemistry Sodium (137 - 145 mmol/L) 136 L Potassium (3.5 - 5.1 mmol/L) 3.8 Chloride (98 - 107 mmol/L) 102 Carbon Dioxide (22 - 30 mmol/L) 24 Anion Gap (5 - 16) 11 BUN (9 - 20 mg/dL) 10 Creatinine (0.7 - 1.2 mg/dL) 0.6 L Estimated GFR (>60 ml/min) > 60 BUN/Creatinine Ratio (7 - 25 %) 16.7 Calcium (8.4 - 10.2 mg/dL) 9.2 Albumin (3.5 - 5.0 g/dL) 2.4 L Hematology CBC w Diff NO MAN DIFF REQ WBC (4.8 - 10.8 /CUMM) 10.1 RBC (4.70 - 6.10 /CUMM) 3.35 L Hgb (14.0 - 18.0 G/DL) 8.4 L Hct (42 - 52 %) 26.4 L MCV (80.0 - 94.0 FL) 78.6 L MCH (27.0 - 31.0 PG) 25.1 L RDW (11.5 - 14.5 %) 17.4 H Plt Count (130 - 400 /CUMM) 426 H MPV (7.4 - 10.4 FL) 8.1 Gran % (42.2 - 75.2 %) 76.1 H Lymphocytes % (20.5 - 51.1 %) 12.7 L Monocytes % (1.7 - 9.3 %) 9.1 Eosinophils % (0 - 5 %) 1.7 Basophils % (0.0 - 2.0 %) 0.4 Absolute Granulocytes (1.4 - 6.5 /CUMM) 7.7 H Absolute Lymphocytes (1.2 - 3.4 /CUMM) 1.3 Absolute Monocytes (0.10 - 0.60 /CUMM) 0.9 H Absolute Eosinophils (0.0 - 0.7 /CUMM) 0.2 Absolute Basophils (0.0 - 0.2 /CUMM) 0 PUBS MCHC (33.0 - 37.0 G/DL) 32.0 L Urines Urine Color (YEL,AMB,STR) YEL Urine Clarity (CLEAR) CLEAR Urine pH (5.0 - 8.0) 6.5 Ur Specific Marlow (1.001 - 1.035) 1.010 Urine Protein (NEG,<30 MG/DL) TRACE H Urine Ketones (NEG) TRACE H Urine Nitrite (NEG) NEG Urine Bilirubin (NEG) NEG Urine Urobilinogen (0.1 - 1.0 EU/dl) 1.0 Ur Leukocyte Esterase (NEG) NEG Ur Microscopic SEDIMENT EXAMINED Urine RBC (0 - 5 /HPF) RARE Urine Mucus (FEW,NONE) RARE Urine Hemoglobin (NEG) NEG Urine Glucose (N MG/DL) NEG 07/21 1828 1530 Chemistry Sodium (137 - 145 mmol/L) 137 Potassium (3.5 - 5.1 mmol/L) 3.7 Chloride (98 - 107 mmol/L) 101 Carbon Dioxide (22 - 30 mmol/L) 26 Anion Gap (5 - 16) 10 BUN (9 - 20 mg/dL) 11 Creatinine (0.7 - 1.2 mg/dL) 0.7 Estimated GFR (>60 ml/min) > 60 BUN/Creatinine Ratio (7 - 25 %) 15.7 Glucose (65 - 99 mg/dL) 106 H Lactic Acid (0.7 - 2.1 mmol/L) Cancelled 0.9 Calcium (8.4 - 10.2 mg/dL) 10.3 H Iron (49 - 181 ug/dL) 16 L TIBC (261 - 462 ug/dL) 339 Ferritin (17.9 - 464 ng/mL) 46.8 Total Bilirubin (0.2 - 1.3 mg/dL) 0.6 AST (17 - 59 U/L) 24 ALT (21 - 72 U/L) 30 Alkaline Phosphatase (< 127 U/L) 234 H Creatine Kinase (55 - 170 U/L) < 20 L Troponin I (<0.11 ng/ml) 0.02 Total Protein (6.3 - 8.2 g/dL) 6.8 Albumin (3.5 - 5.0 g/dL) 2.7 L Globulin (1.9 - 4.2 gm/dL) 4.1 Albumin/Globulin Ratio (1.1 - 2.2 %) 0.7 L 25-OH Vitamin D Total (30 - 100 ng/ml) < 4.2 L PTH Intact (13.8 - 85 pg/ml) < 6.3 L Hematology CBC w Diff NO MAN DIFF REQ WBC (4.8 - 10.8 /CUMM) 9.6 RBC (4.70 - 6.10 /CUMM) 3.89 L Hgb (14.0 - 18.0 G/DL) 9.8 L Hct (42 - 52 %) 30.5 L MCV (80.0 - 94.0 FL) 78.3 L MCH (27.0 - 31.0 PG) 25.1 L RDW (11.5 - 14.5 %) 17.2 H Plt Count (130 - 400 /CUMM) 475 H MPV (7.4 - 10.4 FL) 7.8 Gran % (42.2 - 75.2 %) 77.5 H Lymphocytes % (20.5 - 51.1 %) 12.3 L Monocytes % (1.7 - 9.3 %) 8.0 Eosinophils % (0 - 5 %) 1.7 Basophils % (0.0 - 2.0 %) 0.5 Absolute Granulocytes (1.4 - 6.5 /CUMM) 7.5 H Absolute Lymphocytes (1.2 - 3.4 /CUMM) 1.2 Absolute Monocytes (0.10 - 0.60 /CUMM) 0.8 H Absolute Eosinophils (0.0 - 0.7 /CUMM) 0.2 Absolute Basophils (0.0 - 0.2 /CUMM) 0.1 PUBS MCHC (33.0 - 37.0 G/DL) 32.1 L Toxicology Serum Alcohol (<10 MG/DL) < 10.0 Urines Urine Color Cancelled Urine Clarity Cancelled Urine pH Cancelled Ur Specific Marlow Cancelled Urine Protein Cancelled Urine Ketones Cancelled Urine Nitrite Cancelled Urine Bilirubin Cancelled Urine Urobilinogen Cancelled Ur Leukocyte Esterase Cancelled Ur Microscopic Cancelled Urine Hemoglobin Cancelled Urine Glucose Cancelled Disposition Summary Disposition Principal Diagnosis: Sacral fracture Hypercalcemia Additional Diagnosis: HTN COPD History of lung cancer Discharge Disposition: SNF Discharge Instructions General Discharge Information Code Status: Do Not Resucitate/Intubat Patient's Diet: As tolerated Patient's Activity: As tolerated Follow-Up Instructions/Appts: F/u with PCP in 1 week F/u with Dr Dee for the pain managemnet and titaraion. Medications at Discharge Discharge Medications: Stop taking the following medications: Potassium Chloride (Potassium Chloride) 20 MEQ TAB.ER.PRT ORAL DAILY Qty = 30 Furosemide (Furosemide) 40 MG TABLET ORAL DAILY Qty = 30 Continue taking these medications: Oxycodone HCl (Oxycodone HCl) 30 MG TABLET 1 Tablet ORAL as needed for PAIN Qty = 240 Comments: Last Taken: 07/29/16 Time: 2 PM Albuterol Sulfate (Proventil Hfa) 90 MCG HFA.AER.AD 2 PUFF Inhale through mouth as needed for SOB Qty = 7 Comments: NOT GIVEN IN HOSPITAL Budesonide/Formoterol Fumarate (Symbicort 160-4.5 Mcg Inhaler) 160 MCG-4.5 MCG/ ACTUATION HFA.AER.AD 2 PUFF Inhale through mouth TWICE DAILY Qty = 20 Comments: Last Taken: 07/29/16 Time: 10 AM Start taking the following new medications: Polyethylene Glycol 3350 (Miralax) 17 GRAM/DOSE POWDER 17 Gram ORAL DAILY as needed for constipation Qty = 30 No Refills Instructions: stop for diarrhea Comments: NOT GIVEN IN HOSPITAL Sennosides/Docusate Sodium (Senna Plus Tablet) 8.6 MG-50 MG TABLET 2 Tablet ORAL DAILY as needed for coonstipation Qty = 30 No Refills Comments: NOT GIVEN IN HOSPITAL Omeprazole (Omeprazole) 20 MG CAPSULE.DR 20 Milligram ORAL DAILY BEFORE BREAKFAST Qty = 30 No Refills Comments: Last Taken: 07/29/16 Time: 5AM Ergocalciferol (Vitamin D2) (Vitamin D2) 50,000 UNIT CAPSULE 50,000 International Unit ORAL ONCE A WEEK Qty = 30 No Refills Comments: Last Taken: 07/29/16 Time: 10AM Hydromorphone HCl (Hydromorphone HCl) 2 MG TABLET 6 Milligram ORAL EVERY 3 HOURS NEEDED as needed for PAIN SCALE 7-10 ( SEVERE) Qty = 30 No Refills Comments: Last Taken: 07/29/16 Time: 12PM Celecoxib (Celebrex) 100 MG CAPSULE 200 Milligram ORAL TWICE DAILY Days = 30 No Refills Gabapentin (Gabapentin) 400 MG CAPSULE 400 Milligram ORAL EVERY 8 HOURS Days = 30 No Refills Fentanyl Citrate (Duragesic) 100 MCG/HOUR PATCH.TD72 1 Patch On the skin Every 3 days Qty = 2 No Refills Copies To: JENSEN HE,SOLOMON Hunter; SHIRIN HE,VIDAL Hunter Attending MD Review Statement Documenting Attending: GIUSEPPE FRANKS MD Other Findings: The patient was seen and discussed with house staff. Pain improved with current regimen. OK to discharge to rehab today.
[2016-07-24] VITALS: BP 120/70
[2016-07-24 06:30] VITALS: BP 114/70
--- NOTE | 2016-07-24 07:21 | PN- Housestaff ---
RENETTA HE,JIM 07/24/16 0721: Subjective Follow-up For: Scaral Fracture Complaints: no complaints, complains of persietnt back pain Tele-Events Since Last Visit: not on telemetry Subjective: The patient is still complaining of persistent pain in the back. He still also has some arthritic pain in the hip. Review of Systems Constitutional: Reports: see HPI. Objective Last 24 Hrs of Vital Signs/I&O Vital Signs Date Time Temp Pulse Resp B/P Pulse O2 O2 Flow FiO2 Ox Delivery Rate 07/24 0630 99.4 110 20 114/70 91 Room Air 07/24 0000 99.6 98 20 120/70 07/24 0000 94 07/23 2142 99.6 98 20 120/70 94 07/23 1658 Room Air 07/23 1525 99.2 115 20 128/74 90 Room Air 07/23 1400 99.2 115 20 128/74 07/23 1000 98.9 108 20 120/64 07/23 1000 98.9 108 20 120/64 87 Room Air Intake & Output 07/24 1600 07/24 0800 07/24 0000 Intake Total 260 1100 Output Total 800 700 Balance -540 400 Intake, IV 20 600 Intake, Oral 240 500 Number 0 Bowel Movements Output, Urine 800 700 Physical Exam General Appearance: Alert, Oriented X3 Skin: No Rashes, No Breakdown HEENT: Atraumatic, PERRLA Neck: Supple, No JVD Lymphatic: Axillary nl Cardiovascular: Regular Rate, Normal S1, Normal S2 Lungs: Clear to Auscultation, Normal Air Movement Assessment/Plan Assessment: Assessment- 1. Sacral fracture 2. Hypercalcemia, ? Malignancy 3. Severe vitamin D deficiency 4. Lung cancer 5. COPD 6. Nicotine dependence Plan- Pain meds with aggressive bowel regimen Orthopedic consult appreciated, cannot get an MRI as he has metal prosthesis in the shoulder Hypercalcemia resolved and will stop IV fluids after todays bag is finsihed. Started yesterday on Drisdol 50,000 once a week Patient does not want to be seen by oncology Continue inhaler/nebulizer Continue nicotine patch Will need to consider pain consult High dose of narcotics intake histrory. Will c.w dilaudid as needed for pain.Swiotch to Po Diluaidd. Patinet will need STR and is willing.Prefers ryan GUTIÉRREZolls.WIll c/w supportive mnagmnet at this pont. Pain not well controlle and corina increase the Fentanyl patch to 50 and but also increase the gabapentin to 200 mg 3 times a day For the patient's arthritic pain the patient can be started on celecoxib 100 mg twice a day with meals and with omeprazole GI PPX Problem List: 1. Sacral fracture, closed 2. Chronic pain Pain Ratin Pain Location: back Pain Goal: Pain 4 or less Pain Plan: PO dilaudid Tomorrow's Labs & Rationales: cbc and BEP GIUSEPPE FRANKS MD 07/24/16 1235: Attending MD Review Statement Attending Statement Attending MD Statement: examined this patient, discuss w/resident/PA/DIAL PAINTER, agreed w/resident/PA/DIAL PAINTER, reviewed EMR data (avail), discussed with nursing, discussed with case mgmt, amended to note Attending Assessment/Plan: The patient was seen and discussed with house staff. Agree with increase in pain medications- patch, gabapentin. Patient also c/o joint pains c/w arthritis and will add Celebrex 100 mg bid along with PPI (omeprazole).
[2016-07-24] MEDS ORDERED: OMEPRAZOLE20 M2 PO (10:53)
[2016-07-24] MEDS ORDERED: CELEBREX100 M1 PO (10:53)
[2016-07-24] MEDS ORDERED: MIRALAX119 GM PO (10:53)
[2016-07-24] MEDS ORDERED: SENNA PLUS TAB1 EACH PO (10:53)
[2016-07-24] MEDS ORDERED: VITAMIN D250000 UNIT PO (10:53)
--- NOTE | 2016-07-24 10:54 | Patient Discharge Instructions ---
Discharge Instructions General Discharge Information You were seen/treated for: sacral fracture You had these procedures: none Special Instructions: please f/u with orthopedics doctors at time of discharge Please f/u with your PCP in 1 week of discharge Acute Coronary Syndrome Inclusion Criteria At DC or during hospital stay patient has or had the following: ACS DIAGNOSIS No Discharge Core Measures Meds if any: Prescribed or Continued at Discharge Meds if any: NOT Prescribed or Continued at Discharge Congestive Heart Failure Inclusion Criteria At DC or during hospital stay patient has or had the following: CHF DIAGNOSIS No Discharge Core Measures Meds if any: Prescribed or Continued at Discharge Meds if any: NOT Prescribed or Continued at Discharge Cerebrovascular accident Inclusion Criteria At DC or during hospital stay patient has or had the following: CVA/TIA Diagnosis No Discharge Core Measures Meds if any: Prescribed or Continued at Discharge Meds if any: NOT Prescribed or Continued at Discharge Venous thromboembolism Inclusion Criteria VTE Diagnosis No VTE Type NONE VTE Confirmed by (Test) NONE Discharge Core Measures - Per Current guidelines, there needs to be overlap - treatment for the first 5 days of Warfarin therapy. - If discharged on Warfarin prior to 5 days of - overlap therapy, the patient will need to be - assessed for post discharge needs including - *Post discharge parental anticoagulation - *Warfarin and/or parental anticoagulation education - *Follow up date to check INR post discharge At least 5 days overlap therapy as Inpatient No Meds if any: Prescribed or Continued at Discharge Note: Overlap Therapy is Warfarin and Anticoagulant Meds if any: NOT Prescribed or Continued at Discharge
[2016-07-24] MEDS ORDERED: GABAPENTIN300 M2 PO (10:56)
[2016-07-24 14:01] VITALS: BP 118/62
[2016-07-24 22:49] VITALS: BP 116/70
[2016-07-25] VITALS (7 sets, daily range): BP systolic 104–116; BP diastolic 60–80
--- NOTE | 2016-07-25 07:58 | PN- Housestaff ---
RENETTA HE,JIM 07/25/16 0758: Subjective Follow-up For: Chronic back pain and sacral fracture Complaints: patient is complaining of persistent back pain but definitely better than yesterday Subjective: Patient was awake alert oriented and was sitting comfortably in the bed when I saw him. He mentioned that his pain is better controlled today and he slept well. Review of Systems Constitutional: Reports: see HPI. Objective Last 24 Hrs of Vital Signs/I&O Vital Signs Date Time Temp Pulse Resp B/P Pulse O2 O2 Flow FiO2 Ox Delivery Rate 07/25 0628 98.2 103 20 116/80 92 Nasal Cannula 07/24 2249 99.0 114 24 116/70 96 Nasal 2.0L Cannula 07/24 1401 98.9 123 22 118/62 94 Intake & Output 07/25 1600 07/25 0800 07/25 0000 Intake Total 240 Output Total 1225 450 Balance -985 -450 Intake, Oral 240 Number 0 Bowel Movements Output, Urine 1225 450 Physical Exam General Appearance: Alert, Oriented X3 Skin: No Rashes HEENT: Atraumatic, PERRLA Neck: Supple, No JVD, No thryomegaly Lymphatic: Axillary nl, Cervical nl Cardiovascular: Regular Rate, Normal S1, Normal S2 Lungs: Clear to Auscultation, Normal Air Movement Current Medications: Current Medications Sig/Bonnie Start time Last Medication Dose Route Stop Time Status Admin Acetaminophen 650 MG Q6P PRN 07/21 2114 AC PO Acetaminophen/ 1 TAB Q6P PRN 07/21 2115 AC 07/22 Hydrocodone Bitart PO 0749 Albuterol Sulfate 2 PUF Q4 HRS NEEDED PRN 07/21 2130 AC 07/22 INH 0525 Bisacodyl 5 MG DAILY 07/23 1000 AC PO Budesonide/ 2 PUF BID 07/21 2200 AC 07/24 Formoterol Fumarate INH 2223 Celecoxib 100 MG BID 07/24 1027 AC 07/24 PO 2225 Enoxaparin Sodium 40 MG AT BEDTIME 07/21 2200 AC SC Ergocalciferol 50,000 IU Q168 07/22 1000 AC 07/22 PO 1042 Fentanyl Citrate 50 MCG Q72H 07/26 0845 07/24 TOP 1140 Fentanyl Citrate 50 MCG .ST-MED ONE 07/24 1132 DC TOP 07/24 1133 Fentanyl Citrate 25 MCG Q72H 07/23 0845 DC 07/23 TOP 0859 Gabapentin 400 MG Q8 07/25 1400 AC PO Gabapentin 300 MG Q8 07/24 1400 DC 07/25 PO 0527 Gabapentin 100 MG Q8 07/23 1400 DC 07/24 PO 0602 Hydromorphone HCl 1.5 MG Q4 HRS NEEDED PRN 07/25 0845 UNVr IV Hydromorphone HCl 1.5 MG Q3P PRN 07/23 1330 DC 07/25 IV 0528 Lorazepam 0 Q1P PRN 07/22 1015 AC IV Nicotine 21 MG DAILY 07/22 1000 AC TOP Omeprazole 20 MG DAILY AC 07/24 1027 AC 07/25 PO 0528 Oxycodone HCl 30 MG Q4 07/22 1400 AC 07/25 PO 0527 Oxycodone HCl 60 MG TID 07/22 1017 AC 07/24 PO 2225 Patient Medication 1 ED .STK-MED ONE 07/24 1407 [facility] 07[facility]24 1408 Polyethylene Glycol 17 GM DAILY 07/22 1000 AC PO Senna/Docusate Sodium 2 TAB DAILY 07/22 1000 AC PO Assessment/Plan Assessment: Assessment- 1. Sacral fracture 2. Hypercalcemia, ? Malignancy 3. Severe vitamin D deficiency 4. Lung cancer 5. COPD 6. Nicotine dependence Plan- Pain meds with aggressive bowel regimen Orthopedic consult appreciated, cannot get an MRI as he has metal prosthesis in the shoulder Hypercalcemia resolved Started yesterday on Drisdol 50,000 once a week Patient is not interested in being seen by the oncology Continue inhaler/nebulizer Continue nicotine patch Will need to consider pain consult High dose of narcotics intake histrory. Will c.w dilaudid as needed for pain. We will change it to 1.5 mg every 4 hours as needed Patinet will need STR and is willing.Prefers ryan Blancas.WIll c/w supportive mnagmnet at this pont. Patient's pain is well controlled as compared to yesterday. He still has the persistence numbness and tingling in the thigh and hence we will increase the dose of gabapentin to 400 mg 3 times a day, continue with celecoxib 100 mg twice a day, continue with fentanyl patch. I discussed in detail with the patient that he needs to be off the IV pain medications which he is willing to try hence we will try to decrease the IV Dilaudid as mentioned above Problem List: 1. Sacral fracture, closed 2. Chronic pain Pain Ratin Pain Location: Back pain, and arthritic pain Pain Goal: Pain 4 or less Pain Plan: Celecoxib, Dilaudid, gabapentin, fentanyl Tomorrow's Labs & Rationales: None GIUSEPPE FRANKS MD 07/25/16 1618: Attending MD Review Statement Attending Statement Attending MD Statement: examined this patient, discuss w/resident/PA/CROP DUSTER, agreed w/resident/PA/CROP DUSTER, reviewed EMR data (avail), discussed with nursing, discussed with case mgmt, amended to note Attending Assessment/Plan: The patient was seen and discussed with house staff and nursing. Still with significant pain, however improving. He is tolerant of narcotics as he had been on large doses for some time as OP. Still requiring some IV dilaudid. Has 3 types of pain: sacral fracture pain, arthritic pain, and neuropathic pain. Agree with increase in Gabapentin and Fentanyl Patch 75 mcg q72 hour (equivalent to 35 mg q4h of oxycodone). Will observe response. Patient did get out of bed today. Continue therapy and plan rehab facility.
[2016-07-26] VITALS: BP 104/64
[2016-07-26 02:54] VITALS: BP 108/60
[2016-07-26 06:00] VITALS: BP 100/66
[2016-07-26 06:23] VITALS: BP 100/66
--- NOTE | 2016-07-26 07:15 | PN- Housestaff ---
KRISTA MARTÍNEZ 07/26/16 0714: Subjective Follow-up For: Chronic back pain and sacral fracture Subjective: Patient seen and examined at bedside. He states that his back pain is a 15/10, and that he hasn't slept well last night. States he is tolerating food okay. Will switch him to oral dilaudid today which will have a longer duration of action compared to IV. States he had two bowel movements yesterday. No other complaints. Review of Systems Constitutional: Denies: chills, fever. Cardiovascular: Denies: chest pain, orthopena, palpitations. Respiratory: Denies: cough, short of breath. Gastrointestinal: Denies: abdominal pain, nausea, vomiting. Genitourinary: Reports: no symptoms. Musculoskeletal: Reports: back pain. Neurological/Psychological: Denies: headache, numbness, tingling. Objective Last 24 Hrs of Vital Signs/I&O Vital Signs Date Time Temp Pulse Resp B/P Pulse O2 O2 Flow FiO2 Ox Delivery Rate 07/26 0623 98.1 98 20 100/66 91 Room Air 07/26 0600 98.1 98 20 100/66 07/26 0254 105 18 108/60 91 Room Air 07/26 0000 98.4 106 20 104/64 07/25 2200 98.4 106 20 104/64 07/25 2115 98.4 106 20 104/64 93 Room Air 07/25 2000 98.4 106 20 104/64 07/25 1800 99.5 100 18 116/70 07/25 1800 98.9 117 20 104/60 92 Room Air 07/25 1600 99.5 100 18 116/70 07/25 1404 99.5 100 18 116/70 90 Room Air 07/25 0800 Nasal 2.0L Cannula Intake & Output 07/26 0800 07/26 0000 07/25 1600 Intake Total 300 450 480 Output Total 200 Balance 300 450 280 Intake, Oral 300 450 480 Number 1 Bowel Movements Output, Urine 200 Physical Exam General Appearance: Alert, Oriented X3, Cooperative, No Acute Distress HEENT: Atraumatic, PERRLA Neck: Supple, No JVD Cardiovascular: Normal S1, Normal S2, No Murmurs Lungs: Clear to Auscultation Abdomen: Normal Bowel Sounds, Soft, No Tenderness Neurological: Normal Speech, Strength at 5/5 X4 Ext Extremities: No Edema, Normal Pulses, No Tenderness/Swelling Current Medications: Current Medications Sig/Bonnie Start time Last Medication Dose Route Stop Time Status Admin Acetaminophen 650 MG Q6P PRN 07/21 2114 AC PO Acetaminophen/ 1 TAB Q6P PRN 07/21 211 AC 07/22 Hydrocodone Bitart PO 0749 Albuterol Sulfate 2 PUF Q4 HRS NEEDED PRN 07/21 2130 AC 07/22 INH 0525 Bisacodyl 5 MG DAILY 07/23 1000 AC PO Budesonide/ 2 PUF BID 07/21 220 AC 07/25 Formoterol Fumarate INH 2307 Celecoxib 200 MG BID 07/25 2200 AC 07/25 PO 2309 Celecoxib 100 MG BID 07/24 1027 DC 07/25 PO 0851 Enoxaparin Sodium 40 MG AT BEDTIME 07/21 220 AC SC Ergocalciferol 50,000 IU Q168 07/22 1000 AC 07/22 PO 1042 Fentanyl Citrate 50 MCG Q72H 07/26 0845 DC 07/24 TOP 1140 Fentanyl Citrate 75 MCG Q72H 07/26 0845 AC TOP Gabapentin 400 MG Q8 07/25 1400 DC PO Gabapentin 400 MG Q8 07/25 1330 AC 07/26 PO 0530 Gabapentin 300 MG Q8 07/24 1400 DC 07/25 PO 0527 Hydromorphone HCl 1 MG Q4P PRN 07/25 1615 AC 07/26 IV 0019 Hydromorphone HCl 2 MG .STK-MED ONE 07/25 1442 DC IV 07/25 1443 Hydromorphone HCl 1.5 MG Q4P PRN 07/25 0845 DC 07/25 IV 1316 Hydromorphone HCl 1.5 MG Q3P PRN 07/23 1330 DC 07/25 IV 0528 Lorazepam 0 Q1P PRN 07/22 1015 AC IV Nicotine 21 MG DAILY 07/22 1000 AC TOP Omeprazole 20 MG DAILY AC 07/24 1027 AC 07/26 PO 0530 Oxycodone HCl 30 MG Q4 07/22 1400 AC 07/26 PO 0530 Oxycodone HCl 60 MG TID 07/22 1017 AC 07/25 PO 2303 Polyethylene Glycol 17 GM DAILY 07/22 1000 AC PO Senna/Docusate Sodium 2 TAB DAILY 07/22 1000 AC PO Assessment/Plan Assessment: Assessment- 1. Sacral fracture 2. Hypercalcemia, ? Malignancy 3. Severe vitamin D deficiency 4. Lung cancer 5. COPD 6. Nicotine dependence Plan- Pain meds with aggressive bowel regimen Orthopedic consult appreciated, cannot get an MRI as he has metal prosthesis in the shoulder Hypercalcemia resolved Continue Drisdol 50,000 once a week Patient is not interested in being seen by the oncology Continue inhaler/nebulizer Continue nicotine patch High dose of narcotics intake histrory. Will switch to oral dilaudid 6mg Q4 PRN as needed for pain. Patinet will need STR and is willing. Prefers ryan Blanc[facility].Will c/w supportive managmnet at this pont. He states he still has persistence of numbness and tingling in the thigh and gabapentin was increased to 400 mg 3 times a day, and celecoxib to 200 mg twice a day, continue with fentanyl patch. Problem List: 1. Sacral fracture, closed 2. Intractable back pain 3. Metastatic lung cancer (metastasis from lung to other site) 4. Chronic pain 5. Olecranon bursitis of right elbow Pain Ratin Pain Location: back pain Pain Goal: Pain 4 or less Pain Plan: Dilaudid 6mg Q4 PRN Fentanyl patch 75MCG Q72H Roxicodone 30mg Q4 PO Oxycontin 60mg TID PO Tomorrow's Labs & Rationales: n/a Discharge Plan Discharge Disposition: STR/MD GIUSEPPE FRANKS MD 07/26/16 1756: Attending MD Review Statement Attending Statement Attending Statement: examined this patient, discuss w/resident/PA/INVESTIGATIVE ASSISTANT, agreed w/resident/PA/INVESTIGATIVE ASSISTANT, reviewed EMR data (avail), discussed with nursing, discussed with case mgmt, amended to note Attending Assessment/Plan: The patient continues with pain. Some increase in pain upon sitting. Did not receive increased dose of Fentanyl patch until this morning. Will attempt to transition to po Dilaudid 6 mg dose instead of IV. He has a high tolerance to narcotics as had been taking significant amounts prior to admission.
[2016-07-26] MEDS ORDERED: CELEBREX100 M1 PO (09:40)
[2016-07-26] MEDS ORDERED: GABAPENTIN400 M2 PO (09:41)
[2016-07-26 13:17] VITALS: BP 120/60
[2016-07-26 21:56] VITALS: BP 110/60
[2016-07-27 06:27] VITALS: BP 100/64
--- NOTE | 2016-07-27 10:49 | PN- Housestaff ---
ROSY HE,PIO 07/27/16 1033: Subjective Follow-up For: Chronic back pain and sacral fracture Complaints: back pain Subjective: Seen and examined at bedside states that his chronic pain is 8/10 this morning, received minimal amount of sleep last night. He has been transitioned to by mouth pain medications, and seems to be tolerating this. Review of Systems Constitutional: Reports: see HPI. Objective Last 24 Hrs of Vital Signs/I&O Vital Signs Date Time Temp Pulse Resp B/P Pulse O2 O2 Flow FiO2 Ox Delivery Rate 07/27 0627 98.1 97 20 100/64 90 Room Air 07/27 0000 92 Nasal 2.0L Cannula 07/26 2300 100 07/26 2156 98.1 112 20 110/60 92 Room Air 07/26 1317 98.1 100 20 120/60 92 Room Air Intake & Output 07/27 1600 07/27 0800 07/27 0000 Intake Total 120 240 Output Total 400 750 Balance -280 -510 Intake, Oral 120 240 Output, Urine 400 750 Physical Exam General Appearance: Alert, Oriented X3, Cooperative, No Acute Distress HEENT: Atraumatic, PERRLA, left eye extropia Neck: Supple, No JVD Cardiovascular: Regular Rate, Normal S1, Normal S2, No Murmurs Lungs: Clear to Auscultation, Normal Air Movement Abdomen: Normal Bowel Sounds, Soft, No Tenderness Neurological: Normal Speech, Strength at 5/5 X4 Ext Extremities: No Edema, Normal Pulses Current Medications: Current Medications Sig/Bonnie Start time Last Medication Dose Route Stop Time Status Admin Acetaminophen 650 MG Q6P PRN 07/215 AC PO Albuterol Sulfate 2 PUF Q4 HRS NEEDED PRN 07/21 2130 AC 07/22 INH 0525 Bisacodyl 5 MG DAILY 07/23 1000 AC PO Budesonide/ 2 PUF BID 07/21 2200 AC 07/27 Formoterol Fumarate INH 0821 Celecoxib 200 MG BID 07/25 2200 AC 07/27 PO 0821 Enoxaparin Sodium 40 MG AT BEDTIME 07/21 2200 AC SC Ergocalciferol 50,000 IU Q168 07/22 1000 AC 07/22 PO 1042 Fentanyl Citrate 75 MCG Q72H 07/26 0845 AC 07/26 TOP 0821 Gabapentin 400 MG Q8 07/25 1330 AC 07/27 PO 0559 Hydromorphone HCl 6 MG Q4 HRS NEEDED PRN 07/26 0915 AC 07/27 PO 0821 Lorazepam 0 Q1P PRN 07/22 1015 AC IV Nicotine 21 MG DAILY 07/22 1000 AC TOP Omeprazole 20 MG DAILY AC 07/24 1027 AC 07/27 PO 0559 Oxycodone HCl 30 MG Q4 07/22 1400 AC 07/27 PO 0821 Oxycodone HCl 60 MG TID 07/22 1017 AC 07/27 PO 0821 Polyethylene Glycol 17 GM DAILY 07/22 1000 AC PO Senna/Docusate Sodium 2 TAB DAILY 07/22 1000 AC PO Assessment/Plan Assessment: Assessment- 1. Sacral fracture 2. Hypercalcemia, ? Malignancy 3. Severe vitamin D deficiency 4. Lung cancer 5. COPD 6. Nicotine dependence Plan- Pain meds with aggressive bowel regimen Orthopedic consult appreciated, cannot get an MRI as he has metal prosthesis in the shoulder Hypercalcemia resolved Continue Drisdol 50,000 once a week He is not interested in being seen by the oncology Continue inhaler/nebulizer Continue nicotine patch High dose of narcotics intake histrory. Continue oral dilaudid 6mg Q4 PRN as needed for pain. Fentanyl patch has been increased yesterday, we will continue at this dose and monitor pain. Patinet will need STR and is willing. Prefers [facility].Will c/w supportive managment at this time. Continues to have persistence of tingling in the thigh, gabapentin was increased to 400 mg 3 times a day, we may increase this if tingling persists. Problem List: 1. Sacral fracture, closed 2. Intractable back pain 3. Chronic pain 4. Metastatic lung cancer (metastasis from lung to other site) Pain Ratin Pain Location: generalized pain Pain Goal: Pain 4 or less Pain Plan: continue dilaudid 6mg Q4 PRN continue fentanyl patch 75mcg Q72 hrs continue oxycodone 30 mg Q4 Tomorrow's Labs & Rationales: n/a DVT/Prophylaxis: pharmacological ELAINA HE,JOSE 07/27/16 1222: Attending MD Review Statement Attending Statement Attending MD Statement: examined this patient, discuss w/resident/PA/PARK LANDSCAPE ARCHITECT, agreed w/resident/PA/PARK LANDSCAPE ARCHITECT, discussed with family, reviewed EMR data (avail), discussed with nursing, discussed with case mgmt, reviewed images, amended to note Attending Assessment/Plan: Patient continues to have pain. He said that he was switched to by mouth medication which is not helping, also reported that he was crying in pain this morning. He was very well explained that with cancer and multiple fractures and prosthesis in his body his pain level will never be zero, further inquiring about his comfort level he said that he would prefer his pain to be at least at 5 which is currently at 8-9. Does not offer any other complaints. Plan 1. Change his Dilaudid to 6 mg every 3 hours, please monitor/hold for sedation. 2. Avoid constipation. 3. Encourage ambulation
[2016-07-27 13:59] VITALS: BP 100/70
[2016-07-27 21:53] VITALS: BP 104/70
[2016-07-28 06:28] VITALS: BP 106/80
--- NOTE | 2016-07-28 10:17 | PN- Housestaff ---
TAMELA CARDENAS 07/28/16 1017: Subjective Follow-up For: Chronic back pain and sacral fracture Complaints: pain scale (0-10) (back pain) Subjective: Patient is seen and examined , still reports severe lower back pain 8/10 in severity, received minimal amount of sleep last night. He has been transitioned to by mouth pain medications, and seems to be tolerating this. If needed will give extra dose of IV pain medication. Review of Systems Constitutional: Denies: chills, diaphoresis, fever. EENTM: Denies: blurred vision, double vision, visual changes, eye drainage. Cardiovascular: Denies: chest pain, edema, orthopena. Respiratory: Denies: cough, hemoptysis, orthopnea, short of breath. Objective Last 24 Hrs of Vital Signs/I&O Vital Signs Date Time Temp Pulse Resp B/P Pulse O2 O2 Flow FiO2 Ox Delivery Rate 07/28 0628 97.9 110 20 106/80 93 Nasal 3.0L Cannula 07/27 2153 98.9 82 20 104/70 95 07/27 1359 98.2 100 20 100/70 90 Nasal 2.0L Cannula Intake & Output 07/28 1600 07/28 0800 07/28 0000 Intake Total 120 600 Output Total 550 Balance -430 600 Intake, Oral 120 600 Output, Urine 550 Physical Exam General Appearance: Oriented X3, Cooperative, No Acute Distress Skin: No Breakdown HEENT: PERRLA, EOMI Neck: No JVD, No thryomegaly, +2 Carotid Pulse wo Bruit Cardiovascular: Normal S1, Normal S2, No Murmurs Lungs: Clear to Auscultation, Normal Air Movement Abdomen: Soft, No Tenderness Neurological: Normal Speech, Strength at 5/5 X4 Ext, Normal Tone Current Medications: Current Medications Sig/Bonnie Start time Last Medication Dose Route Stop Time Status Admin Acetaminophen 650 MG Q6P PRN 07/21 2114 AC PO Albuterol Sulfate 2 PUF Q4 HRS NEEDED PRN 07/21 2129 AC 07/22 INH 0525 Bisacodyl 5 MG DAILY 07/23 1000 AC PO Budesonide/ 2 PUF BID 07/21 2199 AC 07/28 Formoterol Fumarate INH 09 Celecoxib 200 MG BID 07/25 2199 AC 07/28 PO 0904 Enoxaparin Sodium 40 MG AT BEDTIME 02/12 2200 AC SC Ergocalciferol 50,000 IU Q168 07/22 1000 AC 07/22 PO 1042 Fentanyl Citrate 75 MCG Q72H 07/26 0845 AC 07/26 TOP 0821 Gabapentin 400 MG Q8 07/25 1330 AC 07/28 PO 0545 Hydromorphone HCl 6 MG Q3P PRN 07/27 1245 AC 07/28 PO 0904 Hydromorphone HCl 6 MG Q4 HRS NEEDED PRN 07/26 0915 DC 07/27 PO 1221 Lorazepam 0 Q1P PRN 07/22 1015 AC IV Nicotine 21 MG DAILY 07/22 1000 AC TOP Omeprazole 20 MG DAILY AC 07/24 1027 AC 07/28 PO 0545 Oxycodone HCl 30 MG Q4 07/22 1400 AC 07/28 PO 0545 Oxycodone HCl 60 MG TID 07/22 1017 AC 07/27 PO 2124 Polyethylene Glycol 17 GM DAILY 07/22 1000 AC PO Senna/Docusate Sodium 2 TAB DAILY 07/22 1000 AC PO Assessment/Plan Assessment: Assessment- 1. Sacral fracture 2. Hypercalcemia, ? Malignancy 3. Severe vitamin D deficiency 4. Lung cancer 5. COPD 6. Nicotine dependence Plan- Pain meds with aggressive bowel regimen Orthopedic consult appreciated, cannot get an MRI as he has metal prosthesis in the shoulder Hypercalcemia resolved Continue Drisdol 50,000 once a week He is not interested in being seen by the oncology Continue inhaler/nebulizer Continue nicotine patch High dose of narcotics intake histrory. Continue oral dilaudid 6mg Q4 PRN as needed for pain. Fentanyl patch has been increased yesterday, we will continue at this dose and monitor pain. He has been transitioned to by mouth pain medications, and seems to be tolerating this. If needed will give extra dose of IV pain medication. Patinet will need STR and is willing. Prefers [facility].Will c/w supportive managment at this time. Continues to have persistence of tingling in the thigh, gabapentin was increased to 400 mg 3 times a day, we may increase this if tingling persists. Problem List: 1. Olecranon bursitis of right elbow 2. Chronic pain 3. Sacral fracture, closed Pain Ratin Pain Location: Low back pain Pain Goal: Remain pain free Pain Plan: Dilaudid Tomorrow's Labs & Rationales: Low H&H repeated CBC tomorrow ELAINA HE,JOSE 07/28/16 1058: Attending MD Review Statement Attending Statement Attending MD Statement: examined this patient, discuss w/resident/PA/BAIT MAN, agreed w/resident/PA/BAIT MAN, discussed with family, reviewed EMR data (avail), discussed with nursing, discussed with case mgmt, reviewed images, amended to note Attending Assessment/Plan: Patient continues to have pain. Grades it as 8 on 10 severity. Plan 1. We will continue the current regimen for now, please contact pain management to help with the regimen. 2. Avoid constipation. 3. Encourage ambulation
[2016-07-28 11:34] VITALS: BP 112/80
[2016-07-28 13:20] LABS: ABSOLUTE BASOPHIL COUNT 0.1 /CUMM (0.0-0.2); ABSOLUTE EOSINOPHIL COUNT 0.2 /CUMM (0.0-0.7); ABSOLUTE GRANULOCYTE CT 9.1 /CUMM (1.4-6.5); ABSOLUTE LYMPH COUNT 1.6 /CUMM (1.2-3.4); ABSOLUTE MONOCYTE COUNT 1.2 /CUMM (0.10-0.60); BASOPHIL % 0.4 % (0.0-2.0); EOSINOPHIL % 1.3 % (0-5); GRANULOCYTE % 75.4 % (42.2-75.2); HEMATOCRIT 27.1 % (42-52); MEAN CORPUSCULAR HGB CONC 31.7 G/DL (33.0-37.0); MEAN CORPUSCULAR VOLUME 75.9 FL (80.0-94.0); MEAN PLATELET VOLUME 8.9 FL (7.4-10.4); PLATELET COUNT 452 /CUMM (130-400); RED BLOOD CELL CT 3.57 /CUMM (4.70-6.10); WHITE BLOOD CELL COUNT 12.1 /CUMM (4.8-10.8)
[2016-07-28 13:47] VITALS: BP 110/80
--- NOTE | 2016-07-28 15:37 | NUR ---
INFORMED TAMELA HE ABOUT PT'S INCREASED CONFUSION. NO FURTHER ORDERS. POSSIBLY CONDUCT MORE TESTING TOMMOROW IF INCREASED CONFUSION.
[2016-07-29 06:26] VITALS: BP 102/74
[2016-07-29 06:28] VITALS: BP 110/84
--- NOTE | 2016-07-29 07:18 | PN- Housestaff ---
RENETTA HE,JIM 07/29/16 0718: Subjective Follow-up For: Chronic pain back pain Complaints: no complaints Subjective: The patient is doing better. He still complains of persistent pain. But he has been tolerating the by mouth pain medications well. Review of Systems Constitutional: Reports: see HPI. Objective Last 24 Hrs of Vital Signs/I&O Vital Signs Date Time Temp Pulse Resp B/P Pulse O2 O2 Flow FiO2 Ox Delivery Rate 07/29 0626 99.1 103 20 102/74 96 Nasal 2.0L Cannula 07/29 0000 Nasal 2.0L Cannula 07/28 1347 99.2 100 20 110/80 94 Nasal 2.0L Cannula 07/28 1134 97.5 110 18 112/80 92 Nasal 2.0L Cannula Intake & Output 07/29 1600 07/29 0800 07/29 0000 Intake Total 360 600 Output Total 500 550 Balance -140 50 Intake, Oral 360 600 Output, Urine 500 550 Physical Exam General Appearance: Alert, Oriented X3 Skin: No Rashes, No Breakdown HEENT: Atraumatic, PERRLA Neck: Supple, No JVD, No thryomegaly Lymphatic: Axillary nl, Cervical nl Cardiovascular: Regular Rate, Normal S1, Normal S2 Lungs: Clear to Auscultation, Normal Air Movement Abdomen: Soft, No Tenderness Neurological: Normal Gait, Normal Speech Current Medications: Current Medications Sig/Bonnie Start time Last Medication Dose Route Stop Time Status Admin Acetaminophen 650 MG Q6P PRN 07/21 2115 AC PO Albuterol Sulfate 2 PUF Q4 HRS NEEDED PRN 07/21 2130 AC 07/22 INH 0525 Bisacodyl 5 MG DAILY 07/23 1000 AC PO Budesonide/ 2 PUF BID 07/21 2200 AC 07/29 Formoterol Fumarate INH 0844 Celecoxib 200 MG BID 07/25 2200 AC 07/29 PO 0843 Enoxaparin Sodium 40 MG AT BEDTIME 07/21 220 AC SC Ergocalciferol 50,000 IU Q168 07/22 1000 AC 07/29 PO 0844 Fentanyl Citrate 100 MCG Q72H 07/29 0845 AC 07/29 TOP 0842 Fentanyl Citrate 75 MCG Q72H 07/26 0845 DC 07/26 TOP 0821 Gabapentin 400 MG Q8 07/25 1330 AC 07/29 PO 0450 Hydromorphone HCl 6 MG Q3P PRN 07/27 1245 AC 07/29 PO 0522 Lorazepam 0 Q1P PRN 07/22 1015 AC IV Nicotine 21 MG DAILY 07/22 1000 AC TOP Omeprazole 20 MG DAILY AC 07/24 1027 AC 07/29 PO 0521 Oxycodone HCl 30 MG Q4 07/22 1400 AC 07/29 PO 0843 Oxycodone HCl 60 MG TID 07/22 1017 AC 07/29 PO 0843 Polyethylene Glycol 17 GM DAILY 07/22 1000 AC PO Senna/Docusate Sodium 2 TAB DAILY 07/22 1000 AC PO Last 24 Hrs of Lab/Celestine Results Last 24 Hrs of Labs/Mics: Laboratory Tests 07/28/16 1230: CBC w Diff NO MAN DIFF REQ, RBC 3.57 L, MCV 75.9 L, MCH 24.0 L, RDW 19.0 H, MPV 8.9, Gran % 75.4 H, Lymphocytes % 12.8 L, Monocytes % 10.1 H, Eosinophils % 1.3, Basophils % 0.4, Absolute Granulocytes 9.1 H, Absolute Lymphocytes 1.6, Absolute Monocytes 1.2 H, Absolute Eosinophils 0.2, Absolute Basophils 0.1, PUBS MCHC 31.7 L Assessment/Plan Assessment: Assessment- 1. Sacral fracture 2. Hypercalcemia, ? Malignancy 3. Severe vitamin D deficiency 4. Lung cancer 5. COPD 6. Nicotine dependence The patient's pain is apparently not well controlled. We will continue with IV Dilaudid 6 mg daily when necessary, gabapentin 400 mg 3 times a day, celecoxib 200 mg twice a day, fentanyl patch can be increased to 100 g every 72 hours, oxycodone 30 mg. Orthopedic consult appreciated, cannot get an MRI as he has metal prosthesis in the shoulder Hypercalcemia resolved Continue Drisdol 50,000 once a week He is not interested in being seen by the oncology Continue inhaler/nebulizer Continue nicotine patch High dose of narcotics intake histrory. Patinet will need STR and is willing. Prefers [facility].Will c/w supportive managment at this time. Continues to have persistence of tingling in the thigh, gabapentin was increased to 400 mg 3 times a day, we may increase this if tingling persists. To be noted that the patient is reluctant to go to [facility] today, extensive discussion between him and me were made and he agreed that if the [facility] is able to taper his pain medications than he would be willing to be discharged today. We would also refer him to a pain management consult as an outpatient with Dr. Mitchell. Problem List: 1. Intractable back pain 2. Olecranon bursitis of right elbow 3. FH: lung cancer Pain Ratin Pain Location: back pain Pain Goal: Pain 4 or less Pain Plan: see EMR Tomorrow's Labs & Rationales: None GIUSEPPE FRANKS MD 07/29/16 1352: Attending MD Review Statement Attending Statement Attending MD Statement: examined this patient, discuss w/resident/PA/EXTERNAL GRINDER TENDER, agreed w/resident/PA/EXTERNAL GRINDER TENDER, reviewed EMR data (avail), discussed with nursing, discussed with case mgmt, amended to note Attending Assessment/Plan: The patient was seen and discussed with house staff. Agree with plan of care. OK to discharge today to rehab.
[2016-07-29] MEDS ORDERED: HYDROMORPHONE HC2 M1 PO (08:16)
[2016-07-29] MEDS ORDERED: DURAGESIC1 EAC3 TOP (09:04)
[2016-07-29 13:48] VITALS: BP 100/60
[2016-07-29 15:41] VITALS: BP 100/60
[2016-07-29] MEDS ORDERED: DURAGESIC1 EAC4 TOP (16:02)
== END 2016-07-29 16:41 | DRG 347 ==
LOC: ENRESERVTM → ENRESERVDT → ERH 15:16 → 2NA 19:18 → ENPENDDIS 19:18 → ERHI 19:18 → 2NA 21:42
PROVIDERS: Emergency Medicine; Internal Medicine; Student in an Organized Health Care Education/Training Program; ADMIT Internal Medicine
DX: S32.10XA Unspecified fracture of sacrum, initial encounter for closed fracture (principal); C34.90 Malignant neoplasm of unspecified part of unspecified bronchus or lung; F17.210 Nicotine dependence, cigarettes, uncomplicated; M79.7 Fibromyalgia; I10 Essential (primary) hypertension; M06.9 Rheumatoid arthritis, unspecified; D50.9 Iron deficiency anemia, unspecified; D69.6 Thrombocytopenia, unspecified; F10.10 Alcohol abuse, uncomplicated; J44.9 Chronic obstructive pulmonary disease, unspecified; K59.00 Constipation, unspecified; R04.2 Hemoptysis; E55.9 Vitamin D deficiency, unspecified; Y92.009 Unspecified place in unspecified non-institutional (private) residence as the place of occurrence of the external cause; M19.90 Unspecified osteoarthritis, unspecified site; W19.XXXA Unspecified fall, initial encounter
CPT/HCPCS: 2NASP; 36415; 73030-LT; 74178; 81001; 82436; 93005; 93010; 96374; 96375; 96376; 97110-GO; 97161-GP; 97530-GO; G0480; J1170; J1650; J1885; J3490

== ENCOUNTER 2016-08-10 09:46 | Inpatient (IN) | payer OTHER ==
[~2016-08-10] VITALS: Ht 175.3 cm; Wt 59.0 kg
[~2016-08-10 09:46] MED LIST changes: +CELEBREX100 M1 PO; +DURAGESIC1 EAC3 TOP; +DURAGESIC1 EAC4 TOP; +FUROSEMIDE40 M1 PO; +GABAPENTIN300 M2 PO; +GABAPENTIN400 M2 PO; +HYDROMORPHONE HC2 M1 PO; +MIRALAX119 GM PO; +OMEPRAZOLE20 M2 PO; +OXYCODONE HCL15 M1 PO; +POTASSIUM CHLO20 ME2 PO; +PREDNISONE10 M2 PO; +PROVENTIL HFA6.7 GM INH; +SENNA PLUS TAB1 EACH PO; +SYMBICORT 16010.2 GM INH; +VITAMIN D250000 UNIT PO
--- NOTE | 2016-08-10 09:48 | NUR ---
PT [facility] FROM [facility]. PER STAFF AT [facility] PT WAS AMS. PER STAFF PT FELL THIS AM WITH NO INJURIES AND LATER BECAME ALTERED AND PULLED OUT IV.. PT HAS HX OF LUNG CA AND SACRAL FX
--- NOTE | 2016-08-10 09:56 | NUR ---
FALL RISK BAND PLACED ON PT AND FALL PRECAUTIONS IN PLACE
[2016-08-10] MEDS ORDERED: VITAMIN D250000 UNIT PO (09:57)
[2016-08-10] MEDS ORDERED: COLACE100 M1 PO (09:59)
[2016-08-10] MEDS ORDERED: DAILY MULTIPLE1 EACH PO (09:59)
[2016-08-10] MEDS ORDERED: THIAMINE HCL100 M1 PO (10:00)
[2016-08-10] MEDS ORDERED: CEFTRIAXONE1 G1 IM (10:01)
[2016-08-10] MEDS ORDERED: SENNA S TABLET1 EACH PO (10:02)
--- NOTE | 2016-08-10 10:02 | ED AMS/SEIZURE/WEAK/DIZZY ---
History of Present Illness General Chief Complaint: Altered Mental Status Stated Complaint: ALTERED MENTAL STATUS Source: patient, old records, EMS Exam Limitations: poor historian Allergies Coded Allergies: clarithromycin (From BIAXIN) (Severe, FACE AND THROAT SWELLING 07/21/16) Reconcile Medications Albuterol Sulfate (Proventil Hfa) 90 MCG HFA.AER.AD 2 PUFF INH PRN SOB ( Reported) Budesonide/Formoterol Fumarate (Symbicort 160-4.5 Mcg Inhaler) 160 MCG-4.5 MCG/ ACTUATION HFA.AER.AD 2 PUFF INH BID LUNG CA/SOB (Reported) Ceftriaxone Sodium (Ceftriaxone) 1 GRAM VIAL 1 GM IM DAILY ANTIBIOTIC, INFECTION (Reported) Celecoxib (Celebrex) 100 MG CAPSULE 200 MG PO BID pain Docusate Sodium (Colace) 100 MG CAPSULE 1 CAP PO BID CONSTIPATION (Reported) Ergocalciferol (Vitamin D2) (Vitamin D2) 50,000 UNIT CAPSULE 1 CAP PO QMON SUPPLEMENT (Reported) Fentanyl 50 MCG/HOUR PATCH.TD72 1 PAT TOP Q3D PAIN (Reported) Gabapentin 400 MG CAPSULE 400 MG PO Q8 neuropathic pain Hydromorphone HCl (Dilaudid) 4 MG TABLET 1 TAB PO Q4 HRS NEEDED PRN PAIN SCALE 7-10 (SEVERE) (Reported) Ipratropium/Albuterol Sulfate (Iprat-Albut 0.5-3(2.5) MG/3 Ml) 0.5 MG-3 MG (2.5 MG BASE)/3 ML AMPUL.NEB 1 VIAL INH TID BREATHING PROBLEMS (Reported) Lorazepam (Ativan) 0.5 MG TABLET 0.5 TAB PO Q6-PRN PRN TREMORS (Reported) Multivitamin (Daily Multiple Vitamin) 1 EACH TABLET 1 TAB PO DAILY SUPPLEMENT (Reported) Omeprazole 20 MG CAPSULE.DR 20 MG PO DAILY AC GI PPX Oxycodone HCl 15 MG TABLET 1 TAB PO Q8P PRN PAIN (Reported) Polyethylene Glycol 3350 (Miralax) 17 GRAM/DOSE POWDER 17 GM PO DAILY PRN constipation stop for diarrhea Sennosides/Docusate Sodium (Senna S Tablet) 8.6 MG-50 MG TABLET 2 TAB PO QPM CONSTIPATION (Reported) Thiamine HCl 100 MG TABLET 1 TAB PO DAILY SUPPLEMENT (Reported) Triage Note: PT BIBA FROM [facility]. PER STAFF AT [facility] PT WAS AMS. PER STAFF PT FELL THIS AM WITH NO INJURIES AND LATER BECAME ALTERED AND PULLED OUT IV.. PT HAS HX OF LUNG CA AND SACRAL FX Triage Nurses Notes Reviewed? yes HPI: This patient is a 56-year-old male with a past medical history including lung cancer, fibromyalgia, and sacral fracture who presented to the emergency department BIB from [facility] for evaluation of altered mental status and fall. Per EMS, the patient was found on the floor in the [facility] at [facility] this morning. Unwitnessed fall. The patient reported that he "passed out for a few seconds." He denied and precipitating factors such as nausea, dizziness, lightheadedness, abdominal pain, or chest pain. He thinks he hit is head. He is reported neck pain which he is unable to described or quantify on a pain scale. Per EMS, caretakers at [facility] reported that he became altered and pulled out his IV. He is denying any headache, head pain, blurry vision, chest pain, abdominal pain. Patient is reporting increased difficulty breathing from baseline. Patient is reporting "pain all over and in my hips." (SUZAN JOHNSON,ALBAN) Vital Signs & Intake/Output Vital Signs & Intake/Output Vital Signs Date Time Temp Pulse Resp B/P Pulse O2 O2 Flow FiO2 Ox Delivery Rate 08/11 0815 98.1 95 18 144/70 99 Nasal 2.0L Cannula 08/11 0801 97 Nasal 2.0L Cannula 08/11 0800 Nasal 2.0L Cannula 08/11 0000 Nasal 4.0L Cannula 08/10 2349 97.2 98 18 160/80 94 Room Air 03/ 2125 97 Nasal 2.0L Cannula / 2040 Nasal 2.0L Cannula / 203 97 Nasal 2.0L Cannula / 1814 96.7 108 16 163/97 95 Room Air 03/04 1733 97.0 114 18 144/79 96 Room Air Room Air 03/04 1426 97.0 100 22 148/86 92 Nasal 2.0L Cannula 03/04 1258 98.0 98 20 116/79 94 Nasal 2.0L Cannula 03/04 1112 97.0 105 20 103/72 98 Room Air 03/04 1045 98.0 108 20 122/76 92 Nasal 2.0L Cannula ED Intake and Output 03/05 0000 03/04 1200 Intake Total 400 1000 Output Total Balance 400 1000 Intake, IV 300 1000 Intake, Oral 100 Number 1 Bowel Movements Patient 99 lb 15.99 oz Weight Past History Travel History Traveled to [place] past 21 day No Medical History Any Pertinent Medical History? see below for history Neurological: FIBROMYALGIA EENT: NONE Cardiovascular: hypertension Respiratory: LUNG CA Gastrointestinal: NONE Hepatic: NONE Renal: NONE Musculoskeletal: rheumatoid arthritis Psychiatric: NONE Endocrine: NONE Blood Disorders: NONE Cancer(s): NONE History of MRSA: No History of VRE: No History of CDIFF: No Surgical History Surgical History: multiple orthopedic surgeries Psychosocial History What is your primary language [place]ese Tobacco Use: Current Daily Use Daily Tobacco Use Amount/Type: => 5 Cigarettes daily ETOH Use: occasional use Illicit Drug Use: denies illicit drug use Family History Family History, If Any: SISTER FH: lung cancer MOTHER FH: lung cancer FATHER FH: lung cancer Relation not specified for: FH: lung cancer Hx Contributory? Yes (ALBAN MARES PA-C) Review of Systems Review of Systems Constitutional: Reports: no symptoms. EENTM: Reports: no symptoms. Respiratory: Reports: no symptoms. Cardiovascular: Reports: no symptoms. GI: Reports: no symptoms. Musculoskeletal: Reports: see HPI. Skin: Reports: no symptoms. Neurological/Psychological: Reports: see HPI. Hematologic/Endocrine: Reports: see HPI. All Other Systems: Reviewed and Negative (ALBAN MARES PA-C) Physical Exam Physical Exam General Appearance: well developed/nourished, no apparent distress, alert, awake Comments: Well-developed well-nourished person in no acute distress HEENT: Normal EENT exam, head normocephalic/atraumatic with no bony deformities/ step-offs of the skull PERRLA bilaterally Nose is atraumatic. Neck: Supple, no lymphadenopathy. No midline tenderness. FROM Back: Normal inspection Cardiovascular: Regular rate and rhythm with no mururs, rubs, or gallops, no jvd or carotid bruits Respiratory: Chest nontender. No respiratory distress. Breath sounds clear to auscultation bilaterally Abdomen: Soft, nontender and nondistended. Normoactive bowel sounds. No organomegaly. No peritoneal signs or rebound/guarding Extremity: Normal and equal pulses. Neuro: Alert oriented to person and place, cranial nerves II through XII grossly intact. no aphasia, no facial droop, no unilateral weakness Skin: No appreciable rash on exposed skin, skin is warm and dry. Psych: Mood and affect is normal Core Measures ACS in differential dx? Yes CVA/TIA Diagnosis: No Severe Sepsis Present: No Septic Shock Present: No (SUZAN JOHNSON,ALBAN) Progress Differential Diagnosis: arrythmia, alcohol intoxication, anemia, benign positional vertigo, CVA/stroke, dehydration, drug intoxication, encephalitis, electrolyte imbalance, GI bleed, hypoglycemia, intracranial Hem., intracranial mass/tumor, pneumonia, presyncope, sepsis, seizure disorder, UTI/pyelo, vertebrobasilar insuff, multiple myeloma Diagnostic Imaging: Viewed by Me: Radiology Read, CT Scan. Discussed w/RAD: Radiology Read, CT Scan. Radiology Impression: PATIENT: VIDAL AGUAYO PRESENT AGE: 56 PATIENT ACCOUNT NO: [id number] : 60 LOCATION: [facility] ORDERING PHYSICIAN: ALBAN MARES PA-C SERVICE DATE: 08/10/16 EXAM TYPE: CAT - CT CERV SPINE WO IV CONTRAST; CT HEAD WO IV CONTRAST EXAMINATION: CT HEAD WITHOUT CONTRAST CT CERVICAL SPINE WITHOUT CONTRAST CLINICAL INFORMATION: 56- year-old man with unwitnessed fall. COMPARISON: None. TECHNIQUE: Imaging was performed from the skull base to vertex without intravenous administration of contrast. In addition, helical noncontrast CT imaging was acquired through the cervical spine and source images were reviewed along with axial reconstructions and sagittal and coronal MPRs. DLP: 845 mGy-cm FINDINGS: HEAD: No intracranial mass, hemorrhage, or midline shift is visualized. The ventricles and sulci are age-appropriate. No extra-axial collections are identified. The paranasal sinuses and mastoid air cells are well aerated. CERVICAL SPINE: There is no evidence of acute cervical spine fracture. Vertebral bodies remain normal in height, intervertebral disc spaces are preserved, and alignment is anatomic. There is bulky marginal osteophyte formation at C2-C3 and prominent right sided facet arthrosis at C3-C4, C4-C5, and C5-C6. No pre- or paravertebral soft tissue abnormality is identified. Limited assessment of the lung apices is notable for moderate to severe centrilobular and paraseptal emphysema. IMPRESSION: 1. No acute intracranial pathology. 2. No CT evidence of acute cervical spine fracture or traumatic subluxation. DICTATED BY: TJ NUÑEZ MD DATE/TIME DICTATED:1027 TRACK SURFACING MACHINE OPERATOR:MAURI DATE/TIME TRANSCRIBED:08/10/161027 CONFIDENTIAL, DO NOT COPY WITHOUT APPROPRIATE AUTHORIZATION. <Electronically signed in Other Vendor System> SIGNED BY: TJ NUÑEZ MD 08/10/16 1036 CXR Impression: PATIENT: VIDAL AGUAYO PRESENT AGE: 56 PATIENT ACCOUNT NO: [id number] : 60 LOCATION: [facility] ORDERING PHYSICIAN: ALBAN MARES PA-C SERVICE DATE: 08/10/16 EXAM TYPE: RAD - XRY- PORTABLE CHEST XRAY EXAMINATION: XR PORTABLE CHEST CLINICAL INFORMATION: 56-year -old man with lung cancer. COMPARISON: 07/21/[address] TECHNIQUE: Portable AP view of the chest was obtained. FINDINGS: The patient's known malignancy is better depicted on his recent chest CT. There is masslike opacity in the region of the left hilum which extends into the left upper and mid lung. Reticular opacities are seen in both lungs, left greater than right. No definite new consolidation or overt pulmonary edema is appreciated. Heart size is within the range of normal. There are no pleural effusions. IMPRESSION: Abnormal appearance of the chest due to the patient's known primary bronchogenic malignancy. No definite new superimposed airspace consolidation. DICTATED BY: TJ NUÑEZ MD DATE/TIME DICTATED:08/10/161044 TRACK SURFACING MACHINE OPERATOR:MAURI DATE/TIME TRANSCRIBED:08/10/161044 CONFIDENTIAL, DO NOT COPY WITHOUT APPROPRIATE AUTHORIZATION. <Electronically signed in Other Vendor System> SIGNED BY: TJ NUÑEZ MD 08/10/16 1052 Initial ED EKG: RBBB, LVH, 109 bpm, sinus tachycardia, PVC, ST DEPRESSIONS LEADS V2 AND V3 Comments: 08/10/2016 4:20:48 PM: Per the hospitalist, I spoke to plane runner, Dr. maravilla. She reported that she does believe this is likely due to malignancy. Because his kidney function is normal, she suggested giving 60 mg of PAMINRONATE over 12 hours IV infusion. She is requesting that house staff give her a call after he is evaluated by them. (SUZAN JOHNSON,ALBAN) Plan of Care: Orders Procedure Date/time Status CALCIUM 08/12 0600 Active BASIC ELECTROLYTES PLUS BUN&CR 08/12 0600 Active ALBUMIN 08/12 0600 Active Regular Diet 08/11 D Active Regular Diet 08/11 B Active CBC WITHOUT DIFFERENTIAL 08/11 06 Active CALCIUM 08/11 0600 Complete BASIC ELECTROLYTES PLUS BUN&CR 08/11 0600 Complete EKG 08/11 UNK Active RT: Evaluation 08/10 2038 Active Vital Signs 08/10 190 Active Teach/Educate 08/10 190 Active Pain Treatment and Response 08/10 190 Active Nutritional Intake, Monitor 08/10 190 Active Isolation 08/10 1903 Active Intake & Output 08/10 190 Active Patient Care Conference 08/10 190 Active Activity/Ambulation 08/10 190 Active CALCIUM 08/10 1846 Complete Pathway - chart 08/10 1749 Active TROPONIN LEVEL 08/10 1749 Complete EKG 08/10 1749 Active Code Status 08/10 1749 Active Add-on Test (ER Only) 08/10 1626 Active Patient Data 08/10 1624 Active Add-on Test (ER Only) 08/10 1538 Active Saline Lock 08/10 1347 Active Admit to inpatient 08/10 1347 Active Vital Signs 08/10 1347 Active Activity/Ambulation 08/10 1347 Active Code Status 08/10 1347 Complete D-DIMER 08/10 1255 Complete Add-on Test (ER Only) 08/10 1159 Active Intake & Output 08/10 1042 Active VITAMIN D1,25 DIHYDROXY Ref$ 08/10 1010 Active VIT D 25 HYDROXY 08/10 1010 Complete PARATHYROID HORMONE 08/10 1010 Complete PROLACTIN 08/10 1010 Complete PHOSPHORUS 08/10 1010 Complete TRC EVALUATION (GEN) 08/10 UNK Complete THERAPIST ORDERS 08/10 UNK Complete OXYGEN SETUP (GEN) 08/10 UNK Complete House Staff 08/10 UNK Active Lab Add-on Test 08/10 UNK Active VTE Mechanical Prophylaxis 08/10 UNK Active Vital Signs 08/10 UNK Complete Patient Safety Monitor 08/10 UNK Complete Restraint- Medical 08/10 UNK Complete Restraint- Medical 08/10 UNK Active Precautions 08/10 UNK Active Anu Coma Scale 08/10 UNK Active Current Medications Sig/Bonnie Start time Last Medication Dose Stop Time Status Admin Sodium Chloride 1,000 ML 150 MLS/HR 08/11 1030 CAN (Normal Saline 0.9%) Lorazepam 0.25 MG Q6-PRN PRN 08/10 1800 AC (Ativan) 08/17 1758 Oxycodone HCl 15 MG Q8P PRN 08/10 1800 AC (Roxicodone) Polyethylene Glycol 17 GM DAILY PRN 08/10 1800 AC (Miralax) Laboratory Tests 08/11/16 0630: Anion Gap 8, Estimated GFR > 60, BUN/Creatinine Ratio 18.9, Calcium 12.2 H, CBC w Diff Pending, WBC Pending, RBC Pending, Hgb Pending, Hct Pending, MCV Pending, MCH Pending, RDW Pending, Plt Count Pending, MPV Pending, PUBS MCHC Pending 08/11/16 0000: Troponin I Cancelled 08/11/16 0000: Calcium Cancelled 08/10/16 2000: Calcium Cancelled 08/10/16 1846: Calcium 12.8 H, Troponin I < 0.01 08/10/16 1316: D-Dimer < 200 08/10/16 1212: Urinalysis HEAVY H, Urine Color YEL, Urine Clarity HAZY H, Urine pH 6.5, Ur Specific Garibaldi 1.015, Urine Protein TRACE H, Urine Ketones NEG, Urine Nitrite NEG, Urine Bilirubin NEG, Urine Urobilinogen 0.2, Ur Leukocyte Esterase NEG, Ur Microscopic SEDIMENT EXAMINED, Urine RBC RARE, Urine WBC RARE, Ur Epithelial Cells RARE, Urine Bacteria FEW H, Granular Casts RARE H, Urine Hemoglobin NEG, Urine Glucose NEG Departure Departure Disposition: STILL A PATIENT Condition: Stable Clinical Impression Primary Impression: Hypercalcemia Secondary Impressions: Altered mental status Qualifiers: Altered mental status type: unspecified Qualified Code: R41.82 - Altered mental status, unspecified Fall Qualifiers: Encounter type: initial encounter Qualified Code: W19.XXXA - Unspecified fall, initial encounter Referrals: LIVIA ALCAZAR MD (PCP/Family) Departure Forms: Customer Survey General Discharge Information Admission Note Spoke With: LEEANN HARRISON MD Documentation of Exam: Documentation of any treatments & extenuating circumstances including Concerns Regarding Discharge (functional status, medication knowledge or non-compliance, living conditions, etc.) that warrant an admission rather than observation: [ This patient is a 56-year-old male with past medical history including hypertension, fibromyalgia, and lung carcinoma presented to the emergency department today brought in by ambulance from [facility] for evaluation of an unwitnessed fall and altered mental status. This patient had a serum albumin level of 2.7 and a serum calcium level of 13.2. This patient will need to be admitted to the hospital for IV fluids, diuresis, trend labs, and close monitoring. Premature discharge could prove medically harmful. This patient is a poor candidate for outpatient treatment.] (SUZAN JOHNSON,ALBAN) PA/HAND PLUG SHAPER Co-Sign Statement Statement: ED Attending supervision documentation- x I saw and evaluated the patient. I have also reviewed all the pertinent lab results and diagnostic results. I agree with the findings and the plan of care as documented in the PA's/HAND PLUG SHAPER's documentation. [] I have reviewed the ED Record and agree with the PA's/HAND PLUG SHAPER's documentation. [] Additions or exceptions (if any) to the PAs/HAND PLUG SHAPER's note and plan are summarized below: [] (JENNIFER HE,SONDIO)
[2016-08-10] MEDS ORDERED: FENTANYL1 EAC3 TOP (10:04)
[2016-08-10] MEDS ORDERED: IPRAT-ALBUT 0.5-3 ML INH (10:04)
[2016-08-10] MEDS ORDERED: DILAUDID4 M1 PO (10:07)
[2016-08-10] MEDS ORDERED: ATIVAN0.5 M1 PO (10:08)
--- NOTE | 2016-08-10 10:27 | NUR ---
PT RETURNS FROM RADIOLOGY
--- NOTE | 2016-08-10 10:36 | CT SCAN REPORT ---
EXAMINATION: CT HEAD WITHOUT CONTRAST CT CERVICAL SPINE WITHOUT CONTRAST CLINICAL INFORMATION: 56-year-old man with unwitnessed fall. COMPARISON: None. TECHNIQUE: Imaging was performed from the skull base to vertex without intravenous administration of contrast. In addition, helical noncontrast CT imaging was acquired through the cervical spine and source images were reviewed along with axial reconstructions and sagittal and coronal MPRs. DLP: 845 mGy-cm FINDINGS: HEAD: No intracranial mass, hemorrhage, or midline shift is visualized. The ventricles and sulci are age-appropriate. No extra-axial collections are identified. The paranasal sinuses and mastoid air cells are well aerated. CERVICAL SPINE: There is no evidence of acute cervical spine fracture. Vertebral bodies remain normal in height, intervertebral disc spaces are preserved, and alignment is anatomic. There is bulky marginal osteophyte formation at C2-C3 and prominent right sided facet arthrosis at C3-C4, C4-C5, and C5-C6. No pre- or paravertebral soft tissue abnormality is identified. Limited assessment of the lung apices is notable for moderate to severe centrilobular and paraseptal emphysema. IMPRESSION: 1. No acute intracranial pathology. 2. No CT evidence of acute cervical spine fracture or traumatic subluxation.
--- NOTE | 2016-08-10 10:41 | NUR ---
IV EST #20 RF
[2016-08-10 10:44] LABS: RED BLOOD CELL CT 4.15 /CUMM (4.70-6.10); WHITE BLOOD CELL COUNT 10.4 /CUMM (4.8-10.8)
[2016-08-10 10:45] LABS: HEMATOCRIT 30.5 % (42-52); MEAN CORPUSCULAR HGB 23.3 PG (27.0-31.0); MEAN CORPUSCULAR HGB CONC 31.7 G/DL (33.0-37.0); MEAN CORPUSCULAR VOLUME 73.5 FL (80.0-94.0); MEAN PLATELET VOLUME 9.3 FL (7.4-10.4); PLATELET COUNT 477 /CUMM (130-400); RBC DISTRIBUTION WIDTH 19.2 % (11.5-14.5)
[2016-08-10 10:46] LABS: ABSOLUTE BASOPHIL COUNT 0.1 /CUMM (0.0-0.2); ABSOLUTE EOSINOPHIL COUNT 0.2 /CUMM (0.0-0.7); ABSOLUTE LYMPH COUNT 1.4 /CUMM (1.2-3.4); ABSOLUTE MONOCYTE COUNT 0.7 /CUMM (0.10-0.60); BASOPHIL % 0.6 % (0.0-2.0); EOSINOPHIL % 1.7 % (0-5); GRANULOCYTE % 77.6 % (42.2-75.2)
--- NOTE | 2016-08-10 10:52 | RADIOLOGY REPORT ---
EXAMINATION: XR PORTABLE CHEST CLINICAL INFORMATION: 56-year-old man with lung cancer. COMPARISON: 07/21/[address] TECHNIQUE: Portable AP view of the chest was obtained. FINDINGS: The patient's known malignancy is better depicted on his recent chest CT. There is masslike opacity in the region of the left hilum which extends into the left upper and mid lung. Reticular opacities are seen in both lungs, left greater than right. No definite new consolidation or overt pulmonary edema is appreciated. Heart size is within the range of normal. There are no pleural effusions. IMPRESSION: Abnormal appearance of the chest due to the patient's known primary bronchogenic malignancy. No definite new superimposed airspace consolidation.
--- NOTE | 2016-08-10 11:37 | NUR ---
ASSUMING CARE OF PT
--- NOTE | 2016-08-10 11:41 | NUR ---
PT IS SLEEPING COMFORTABLY AT THIST TIME. PT STILL UNABLE TO PROVIDE A URINE
--- NOTE | 2016-08-10 12:15 | NUR ---
PT STRAIGHT CATHED FOR URINE SPECIMEN. 100ML CLEAR KAYLA URINE OUTPUT. PT TOLERATED WELL. URINE TRIO SENT TO LAB
--- NOTE | 2016-08-10 13:19 | NUR ---
BLUE REDRAWN AND SENT
--- NOTE | 2016-08-10 15:11 | NUR ---
PT REDIRECTED BACK ONTO STRETCHER. PT STATES HE HAS TO GO TO [place] TO GET SOME MONEY. PT REORIENTED TO PLACE AND TIME AND REPOSITIONED. NURSING WILL CONTINUE TO MONITOR.
--- NOTE | 2016-08-10 15:59 | NUR ---
HOUSE STAFF TO BEDSIDE FOR EVAL.
--- NOTE | 2016-08-10 16:26 | History & Physical ---
TAMI MENDEZ MD 08/10/16 5435: General Information and HPI MD Statement: I have seen and personally examined VIDAL AGUAYO and documented this H&P. The patient is a 56 year old M who presented with a patient stated chief complaint of [AMS]. Source of Information: patient, W10 Exam Limitations: unable to give history, poor historian History of Present Illness: 56-year-old male with PMH of lung cancer (refused biopsy and tx), sacral fracture, was brought from [facility] for altered mental status. Pt is a poor historian and no meaningful history can be obtained from the patient. Pt appears disheveled, unkempt, and confused. He is not oriented to person/place. He thinks he is at his cousin's house. As per ED note, pt was found on the floor at the facility on day of admission, because he "passed out for a few seconds". He thought he might have hit his head , but CT head and cervical neck was negative for acute findings. He reports generalized pain all over, and could not stay still in bed. After that syncopal episode, facility reported that he was altered and pulled out his IV. The facility was called and we tried to obtain more history from them. Pt is intermittently lucid such that meaningful conversation can be held with him. At 4am on day of admission, he was complaining of pain and was not making much sense. He was given dilaudid. It has been noted that he usually gets more confused once he gets dilaudid. He seems more confused after that. He was then found on the floor, alert, but confused, and has defecated and urinated on himself. Unknown how he fell, how long he has been on the floor, and if there was seizure like activity (shaking, tongue biting). Apparently he was on rocephin, unknown for what reason. Allergies/Medications Allergies: Coded Allergies: clarithromycin (From BIAXIN) (Severe, FACE AND THROAT SWELLING 07/21/16) Home Med list Albuterol Sulfate (Proventil Hfa) 90 MCG HFA.AER.AD 2 PUFF INH PRN SOB ( Reported) Budesonide/Formoterol Fumarate (Symbicort 160-4.5 Mcg Inhaler) 160 MCG-4.5 MCG/ ACTUATION HFA.AER.AD 2 PUFF INH BID LUNG CA/SOB (Reported) Ceftriaxone Sodium (Ceftriaxone) 1 GRAM VIAL 1 GM IM DAILY ANTIBIOTIC, INFECTION (Reported) Celecoxib (Celebrex) 100 MG CAPSULE 200 MG PO BID pain Docusate Sodium (Colace) 100 MG CAPSULE 1 CAP PO BID CONSTIPATION (Reported) Ergocalciferol (Vitamin D2) (Vitamin D2) 50,000 UNIT CAPSULE 1 CAP PO QMON SUPPLEMENT (Reported) Fentanyl 50 MCG/HOUR PATCH.TD72 1 PAT TOP Q3D PAIN (Reported) Gabapentin 400 MG CAPSULE 400 MG PO Q8 neuropathic pain Hydromorphone HCl (Dilaudid) 4 MG TABLET 1 TAB PO Q4 HRS NEEDED PRN PAIN SCALE 7-10 (SEVERE) (Reported) Ipratropium/Albuterol Sulfate (Iprat-Albut 0.5-3(2.5) MG/3 Ml) 0.5 MG-3 MG (2.5 MG BASE)/3 ML AMPUL.NEB 1 VIAL INH TID BREATHING PROBLEMS (Reported) Lorazepam (Ativan) 0.5 MG TABLET 0.5 TAB PO Q6-PRN PRN TREMORS (Reported) Multivitamin (Daily Multiple Vitamin) 1 EACH TABLET 1 TAB PO DAILY SUPPLEMENT (Reported) Omeprazole 20 MG CAPSULE.DR 20 MG PO DAILY AC GI PPX Oxycodone HCl 15 MG TABLET 1 TAB PO Q8P PRN PAIN (Reported) Polyethylene Glycol 3350 (Miralax) 17 GRAM/DOSE POWDER 17 GM PO DAILY PRN constipation stop for diarrhea Sennosides/Docusate Sodium (Senna S Tablet) 8.6 MG-50 MG TABLET 2 TAB PO QPM CONSTIPATION (Reported) Thiamine HCl 100 MG TABLET 1 TAB PO DAILY SUPPLEMENT (Reported) Past History Travel History Traveled to [place] past 21 day No Medical History Neurological: FIBROMYALGIA EENT: NONE Cardiovascular: hypertension Respiratory: LUNG CA Gastrointestinal: NONE Hepatic: NONE Renal: NONE Musculoskeletal: rheumatoid arthritis Psychiatric: NONE Endocrine: NONE Blood Disorders: NONE Cancer(s): NONE History of MRSA: No History of VRE: No History of CDIFF: No Surgical History Surgical History: multiple orthopedic surgeries Past Family/Social History Family History Relations & Conditions if any SISTER FH: lung cancer MOTHER FH: lung cancer FATHER FH: lung cancer Relation not specified for: FH: lung cancer Psychosocial History ETOH Use: occasional use Illicit Drug Use: denies illicit drug use Living Will? Cinthia Fleming and Jorge are POAs. Patient does not wish for any resuscitation Functional Ability Ambulation: cane, sometimes uses a cane Review of Systems Review of Systems Constitutional: Reports: see HPI. Exam & Diagnostic Data Last 24 Hrs of Vital Signs/I&O Vital Signs Date Time Temp Pulse Resp B/P Pulse O2 O2 Flow FiO2 Ox Delivery Rate 08/10 1733 97.0 114 18 144/79 96 Room Air Room Air 08/10 1426 97.0 100 22 148/86 92 Nasal 2.0L Cannula 08/10 1258 98.0 98 20 116/79 94 Nasal 2.0L Cannula / 1112 97.0 105 20 103/72 98 Room Air / 1045 98.0 108 20 122/76 92 Nasal 2.0L Cannula 08/10 1021 Nasal 2.0L Cannula / 0949 97.0 118 22 120/76 92 Nasal 2.0L Cannula Intake & Output 08/10 1600 / 0800 08/10 0000 Intake Total 1000 Output Total Balance 1000 Intake, IV 1000 Patient 45.359 kg Weight Physical Exam General Appearance Alert, not oriented to person or place. oriented to time ( knows it's winter and 2016) Skin No Significant Lesion HEENT Atraumatic, dry mucous membranes. ? bleeding in the mouth, poor dentition Neck Supple, +2 Carotid Pulse wo Bruit, No LAD Lymphatic Axillary nl, Cervical nl Cardiovascular Normal S1, Normal S2, No Murmurs, Gallops, Rubs, tachycardic Lungs Clear to Auscultation, Normal Air Movement Abdomen Normal Bowel Sounds, Soft, No Tenderness Neurological difficulty following commands/answering questions, agitated, squirming in bed. appears uncomfortable. Extremities No Edema, Normal Pulses Last 24 Hrs of Labs/Celestine: Laboratory Tests 08/10/16 1316: D-Dimer < 200 08/10/16 1212: Urinalysis HEAVY H, Urine Color YEL, Urine Clarity HAZY H, Urine pH 6.5, Ur Specific [place] 1.015, Urine Protein TRACE H, Urine Ketones NEG, Urine Nitrite NEG, Urine Bilirubin NEG, Urine Urobilinogen 0.2, Ur Leukocyte Esterase NEG, Ur Microscopic SEDIMENT EXAMINED, Urine RBC RARE, Urine WBC RARE, Ur Epithelial Cells RARE, Urine Bacteria FEW H, Granular Casts RARE H, Urine Hemoglobin NEG, Urine Glucose NEG 08/10/16 1010: Anion Gap 8, Estimated GFR > 60, BUN/Creatinine Ratio 18.0, Glucose 161 H, Calcium 13.2 H, Phosphorus 3.7, Magnesium 2.5 H, Total Bilirubin 0.4, AST 28, ALT 19 L, Alkaline Phosphatase 281 H, Troponin I < 0.01, Total Protein 7.6, Albumin 2.7 L, Globulin 4.9 H, Albumin/Globulin Ratio 0.6 L, 25-OH Vitamin D Total 37.9, Prolactin Pending, PTH Intact 7.5 L, D-Dimer Cancelled, CBC w Diff NO MAN DIFF REQ, RBC 4.15 L, MCV 73.5 L, MCH 23.3 L, RDW 19.2 H, MPV 9.3, Gran % 77.6 H, Lymphocytes % 13.5 L, Monocytes % 6.6, Eosinophils % 1.7, Basophils % 0.6, Absolute Granulocytes 8.0 H, Absolute Lymphocytes 1.4, Absolute Monocytes 0.7 H, Absolute Eosinophils 0.2, Absolute Basophils 0.1, PUBS MCHC 31.7 L Diagnostic Data EKG Results ST 109, QTc 437, RBBB, Flip T v2 and V3. ST depression V3. CXR Results CLINICAL INFORMATION: 56-year-old man with lung cancer. COMPARISON: 07/21/[address] TECHNIQUE: Portable AP view of the chest was obtained. FINDINGS: The patient's known malignancy is better depicted on his recent chest CT. There is masslike opacity in the region of the left hilum which extends into the left upper and mid lung. Reticular opacities are seen in both lungs, left greater than right. No definite new consolidation or overt pulmonary edema is appreciated. Heart size is within the range of normal. There are no pleural effusions. IMPRESSION: Abnormal appearance of the chest due to the patient's known primary bronchogenic malignancy. No definite new superimposed airspace consolidation. DICTATED BY: JOAQUIN HE,TJ DATE/TIME DICTATED:08/10/16 / 5 Other Results EXAM TYPE: CAT - CT CERV SPINE WO IV CONTRAST; CT HEAD WO IV CONTRAST EXAMINATION: CT HEAD WITHOUT CONTRAST CT CERVICAL SPINE WITHOUT CONTRAST CLINICAL INFORMATION: 56-year-old man with unwitnessed fall. COMPARISON: None. TECHNIQUE: Imaging was performed from the skull base to vertex without intravenous administration of contrast. In addition, helical noncontrast CT imaging was acquired through the cervical spine and source images were reviewed along with axial reconstructions and sagittal and coronal MPRs. DLP: 845 mGy-cm FINDINGS: HEAD: No intracranial mass, hemorrhage, or midline shift is visualized. The ventricles and sulci are age-appropriate. No extra-axial collections are identified. The paranasal sinuses and mastoid air cells are well aerated. CERVICAL SPINE: There is no evidence of acute cervical spine fracture. Vertebral bodies remain normal in height, intervertebral disc spaces are preserved, and alignment is anatomic. There is bulky marginal osteophyte formation at C2-C3 and prominent right sided facet arthrosis at C3-C4, C4-C5, and C5-C6. No pre- or paravertebral soft tissue abnormality is identified. Limited assessment of the lung apices is notable for moderate to severe centrilobular and paraseptal emphysema. IMPRESSION: 1. No acute intracranial pathology. 2. No CT evidence of acute cervical spine fracture or traumatic subluxation. DICTATED BY: TJ NUÑEZ MD DATE/TIME DICTATED:08/10/161027 FIELD SERVICE ANALYST:MAURI DATE/TIME TRANSCRIBED:08/10/161027 Assessment/Plan Assessment: 56-year-old male with PMH of lung cancer (refused biopsy and tx), sacral fracture, was brought from [facility] for unwitnessed syncope/fall with altered mental status. His calcium was found to be elevated at 13.2 (with albumin of 2.7 ), with elevated alk phos of 281. Patient admitted to telemetry with the following problems addressed: Problem list: # Hypercalcemia most likely due to malignancy (lung cancer) with syncope/fall and AMS # Hypermagnesiumia # Chronic anemia (baseline 9.7/30.5) # Hypercalcemia most likely due to malignancy (lung cancer), with seizure/ syncope/fall? and AMS - EKG showed flip T waves on V2 and V3, ST depression on V3. - 1L NS given in ED - (Ca was 10.3 on jul 12, 9.6 on jul 16, 12.3 on jul 28, 13.4 on aug 3, 13.2 on aug 4 day of admission) - PTH low at 7.5 - Phosphorus 3.7 normal * Aggressive hydration as patient looks very dry * Follow calcium and albumin level (8pm and midnight). If still high despite pamidronate, give calcitonin. * Follow up Vit D level , 1,25VitD * Consider pth-rp * Serial EKG and tropX2. * If suspicious for aspiration, order formal swallow eval * Start bisphosphonate therapy * Place endocrinology consult, appreciate Dr. Louie's recommendations * Consider heme/onc however pt refused biopsy and treatment for lung cancer # Hypermagnesiumia - Mag 2.5 on admission * Follow mg level # home meds Oxycodone 15 q8 Dilaudid 4 mg q4 (use with caution given AMS) Fentanyl q72 Gabapenin 400 q8 Celecoxib 200 bid Albuterol Ipratropium Symbicort Multivitamin Omeprazole Miralax Senna Colace Vit D2 (STOP THIS) Diet: Regular diet DVT ppx:mech and pharm DNR/DNI As Ranked By This Provider Problem List: 1. Hypercalcemia 2. Altered mental status Qualifiers Altered mental status type: unspecified Qualified Code: R41.82 - Altered mental status, unspecified Core Measures/Miscellaneous Acute Coronary Syndrome ACS Diagnosis: No Cerebrovascular Accident CVA/TIA Diagnosis: No Congestive Heart Failure CHF Diagnosis: No Venous Thromboembolism VTE Risk Factors: Age > 40, Cancer/chemo/oth therapy No Mech VTE prophylaxis d/t: No contraindications No VTE Pharm Prophylaxis d/t: No contraindications VTE Diagnosis: No VTE Type: NONE VTE Confirmed by (Test): NONE Severe Sepsis Severe Sepsis Present: No Septic Shock Septic Shock Present: No Miscellaneous Documentation Attending Case Discussed With: LEEANN HARRISON MD Primary Care Physician: LIVIA ALCAZAR MD Patient sees these Specialists N/A Level of Patient Care: Telemetry SHILPA GALVAN MD 08/10/16 1308: Resident Review Statement Resident Statement: examined this patient, discussed with improvement intern, agreed with improvement intern, reviewed EMR data (avail), reviewed images, amended to note Other Findings: This is 56-year-old male with past medical history of lung cancer of unspecified type as patient refused biopsy and further treatment, recent fall resulting in a sacral fracture, hypercholesterolemia, COPD/emphysema, heavy alcohol use and fibromyalgia who was recently admitted to [facility] a month ago for evaluation of fall resulting in sacral fracture and was discharged on vitamin D supplement was sent in from [facility] after patient found confused on floor with fecal and urinary incontinence. Patient noted very confused in ER and unable to provide any information regarding the fall. As per ECF patient found on floor and possibly had a few minutes of loss of consciousness. Patient also mentioned to ER staff that he had head injury after fall and complaining of neck pain. As per ECF staff patient has been having episode of confusion intermittently but mostly when he receives dilaudid for his pain. In ER patient was able to tell us his name but noted disoriented to place and time. Unable to obtain ROS due to confusion. Patient had recent labs a day prior to admission for workup of hypercalcemia and noted elevated calcium level of 13.4 with normal 25 hydroxyvitamin D level of 37.3 and low PTH of 9 a day prior to admission. His vitals on admission were T 97, HR 118, RR 22, BP 120/76, O2 sats 92% on 2 L On physical exam patient noted alert but confused, HEENT PERRLA EOMI, neck supple, dry mucous membrane, heart S1-S2 normal without murmur, noted decrease air entry at left lung bases, abdomen soft nontender nondistended with preserved fall sounds, no peripheral edema, no focal gross neuro deficit. His labs were significant for anemia with H&H of 9.7/30.5, K3.6, NA 137, BUN 18, creatinine 1, partial 13.2 with corrected calcium of 14.3, albumin 2.7, magnesium 2.5, initial troponin negative, alkaline phosphatase 281, phosphorus 3.7, 25-hydroxy vitamin D 37.9, PTH 7.5, prolactin 9.5. EKG revealed normal sinus rhythm at rate of 109, RBBB, ST-T depression in anterolateral leads new from previous EKG with QTC of 437 CT head and cervical spine without contrast noted without acute intracranial pathology or cervical spine fracture. Chest x-ray revealed persistent masslike opacity in the left hilum extending into left upper and midlung with bilateral reticular opacity left more than right. Assessment and plan: This is 56-year-old male with significant past history of smoking who was recently diagnosed with lung cancer and refused further investigation and treatment, emphysema/COPD who was recently admitted to [facility] after sustaining a fall resulting in sacral fracture and discharged on oral vitamin D supplement was sent in from ECF after patient noted very confused and had unwitnessed fall and found to be incontinent with stool and urine. On lab evaluation patient found to have significantly elevated calcium level of 14.3 with suppressed PTH suggestive of secondary hypercalcemia likely secondary to malignancy. 1. Severe secondary hypercalcemia - Likely secondary to underlying malignancy - Noted normal phosphorus level, 25-hydroxy vitamin D level with low PTH level - Likely hypercalcemia is related with PTH related peptide or vitamin D overproduction from sarcoid/lymphoma etiology. - Check 1,25 dihydroxy vitamin D level - Aggressive fluid hydration - Start pamidronate 60 mg in 500 mL normal saline at 100 mL per hour - We'll repeat calcium level in 4 hours, if it remains improving then we'll continue the same treatment but if noted significant worsening of hypercalcemia then will consider calcitonin treatment - Monitor EKG for short QTC 2. Metabolic encephalopathy likely secondary to hypercalcemia - Other differential includes seizure although very less likely or maybe in setting of hypercalcemia 3. Abnormal EKG - Noted ST-T depression in anterolateral lead without any signs and symptoms of chest pain or ischemia, first troponin noted negative - ? Secondary to electrolyte imbalance - Monitor serial troponin and EKG - Cardiology consult 4. Lung cancer - Patient has diffuse any further investigation for his lung cancer nor he is interested in any treatment for the same 5. COPD - Continue Symbicort - TRC 6. Lower back pain/sacral fracture - Continue pain regimen including fentanyl, Dilaudid and oxycodone as needed - Watch for signs of opiate overdose - Continue bowel regimen 7. DVT prophylaxis with subcutaneous heparin 8. Pain management pathway 9. Patient is DNR/DNI [facility] 08/13/16 1457: Attending MD Review Statement Attending Statement Attending MD Statement: examined this patient, discuss w/resident/PA/MANAGER CREDIT, agreed w/resident/PA/MANAGER CREDIT, reviewed EMR data (avail), discussed with nursing, reviewed images, amended to note Attending Assessment/Plan: Also see my note.
--- NOTE | 2016-08-10 17:05 | NUR ---
PT HAS BED #176-1
--- NOTE | 2016-08-10 17:29 | PN- Att Addend ---
Attending Addendum Attending Brief Note 56-year-old male with past medical history significant for fibromyalgia, hypertension, recent admission to [facility] with the fall and sacral fracture which was managed conservatively and also found to have hypercalcemia which was resolved with IV fluids now presented to the hospital with lethargy and some confusion and fall. Patient also reportedly [facility] some [facility]ors [facility] the jail. Patient himself is confused and not able to provide any history. He has been complaint of pain in his pelvis area. His calcium was found to be very high in the emergency room. He also had some EKG changes. Vital Signs Date Time Temp Pulse Resp B/P Pulse O2 O2 Flow FiO2 Ox Delivery Rate 08/10 1426 97.0 100 22 148/86 92 Nasal 2.0L Cannula 08/10 1258 98.0 98 20 116/79 94 Nasal 2.0L Cannula 08/10 1112 97.0 105 20 103/72 98 Room Air 08/10 1045 98.0 108 20 122/76 92 Nasal 2.0L Cannula 08/10 1021 Nasal 2.0L Cannula 08/10 0949 97.0 118 22 120/76 92 Nasal 2.0L Cannula on exam; awake, somewhat confused, nad. cv; s1,s2, rrr resp; clear abd; soft, nt, bs+ ext; no edema. Laboratory Tests 08/10 08/10 1316 1212 Coagulation D-Dimer (70 - 232 ng/ml) < 200 Urines Urinalysis HEAVY H Urine Color (YEL,AMB,STR) YEL Urine Clarity (CLEAR) HAZY H Urine pH (5.0 - 8.0) 6.5 Ur Specific [place] (1.001 - 1.035) 1.015 Urine Protein (NEG,<30 MG/DL) TRACE H Urine Ketones (NEG) NEG Urine Nitrite (NEG) NEG Urine Bilirubin (NEG) NEG Urine Urobilinogen (0.1 - 1.0 EU/dl) 0.2 Ur Leukocyte Esterase (NEG) NEG Ur Microscopic SEDIMENT EXAMINED Urine RBC (0 - 5 /HPF) RARE Urine WBC (0 - 2 /HPF) RARE Ur Epithelial Cells (NONE,FEW) RARE Urine Bacteria (NEG/NONE) FEW H Granular Casts (NONE /LPF) RARE H Urine Hemoglobin (NEG) NEG Urine Glucose (N MG/DL) NEG 08/10 1010 Chemistry Sodium (137 - 145 mmol/L) 137 Potassium (3.5 - 5.1 mmol/L) 3.6 Chloride (98 - 107 mmol/L) 101 Carbon Dioxide (22 - 30 mmol/L) 28 Anion Gap (5 - 16) 8 BUN (9 - 20 mg/dL) 18 Creatinine (0.7 - 1.2 mg/dL) 1.0 Estimated GFR (>60 ml/min) > 60 BUN/Creatinine Ratio (7 - 25 %) 18.0 Glucose (65 - 99 mg/dL) 161 H Calcium (8.4 - 10.2 mg/dL) 13.2 H Phosphorus (2.5 - 4.5 mg/dL) 3.7 Magnesium (1.6 - 2.3 mg/dL) 2.5 H Total Bilirubin (0.2 - 1.3 mg/dL) 0.4 AST (17 - 59 U/L) 28 ALT (21 - 72 U/L) 19 L Alkaline Phosphatase (< 127 U/L) 281 H Troponin I (<0.11 ng/ml) < 0.01 Total Protein (6.3 - 8.2 g/dL) 7.6 Albumin (3.5 - 5.0 g/dL) 2.7 L Globulin (1.9 - 4.2 gm/dL) 4.9 H Albumin/Globulin Ratio (1.1 - 2.2 %) 0.6 L 25-OH Vitamin D Total (30 - 100 ng/ml) Pending PTH Intact (13.8 - 85 pg/ml) Pending Coagulation D-Dimer Cancelled Hematology CBC w Diff NO MAN DIFF REQ WBC (4.8 - 10.8 /CUMM) 10.4 RBC (4.70 - 6.10 /CUMM) 4.15 L Hgb (14.0 - 18.0 G/DL) 9.7 L Hct (42 - 52 %) 30.5 L MCV (80.0 - 94.0 FL) 73.5 L MCH (27.0 - 31.0 PG) 23.3 L RDW (11.5 - 14.5 %) 19.2 H Plt Count (130 - 400 /CUMM) 477 H MPV (7.4 - 10.4 FL) 9.3 Gran % (42.2 - 75.2 %) 77.6 H Lymphocytes % (20.5 - 51.1 %) 13.5 L Monocytes % (1.7 - 9.3 %) 6.6 Eosinophils % (0 - 5 %) 1.7 Basophils % (0.0 - 2.0 %) 0.6 Absolute Granulocytes (1.4 - 6.5 /CUMM) 8.0 H Absolute Lymphocytes (1.2 - 3.4 /CUMM) 1.4 Absolute Monocytes (0.10 - 0.60 /CUMM) 0.7 H Absolute Eosinophils (0.0 - 0.7 /CUMM) 0.2 Absolute Basophils (0.0 - 0.2 /CUMM) 0.1 PUBS MCHC (33.0 - 37.0 G/DL) 31.7 L EKg: New T-wave inversions in anterolateral leads. All imaging studies reviewed. No evidence of any intracranial of prematurity or fracture in the cervical spine. A/P; 56-year-old male with past medical history significant for fibromyalgia, hypertension, recent admission to [facility] with the fall and sacral fracture which was managed conservatively and also found to have hypercalcemia which was resolved with IV fluids now admitted with fall, confusion, hypercalcemia as well as new EKG changes. No previous echocardiograms available. Patient will be admitted to telemetry floor. First troponin negative, will obtained 2 more troponins to current. Please consult cardiology. Patient will need IV hydration but also check PTH and vitamin D levels. Please consult endocrinology. Patient has a history of catheter the past before malignancy associated hypercalcemia is high on differential. Please confirm home medications and make sure that he is not on any calcium supplements. DVT prophylaxis: Heparin subcutaneous.
--- NOTE | 2016-08-10 17:34 | NUR ---
REPORT GIVEN TO ERASMO TAYLOR. [facility] CALLED FOR PT TRANSPORT.
[2016-08-10 18:14] VITALS: BP 163/97
--- NOTE | 2016-08-10 18:32 | Cons- Endocrinology ---
General Information and HPI Consulting Request Date of Consult: 08/10/16 Requested By: medical team Reason for Consult: management of severe hypercalcemia. Source of Information: patient, old records Exam Limitations: unable to give history, confusion, poor historian History of Present Illness: 56-year-old male with past medical history significant for fibromyalgia, hypertension, recent admission to [facility] for sacral fracture after fall which was managed conservatively. His calcium was 10.3 along with albumin 2.7 ( corrected calcium 11.4) which was resolved with IV fluids. Today patient presented to the hospital with lethargy and confusion. In ER, his calcium was 13.2, Cr 1.0, Mg 2.5, PHOS 3.7, albumin 2.7 ( corrected calcium 14.3 ). On 08/06/2016, his calcium was 12.3. On 08/09/2016, his calcium was 13.4, PTH 9.0, 25 OH vitamin D 37.3 and TSH 2.14. He has a hx of vitamin D deficiency and has been on vitamin D2 50,000 units once a month. Patient has history of lung cancer. CT scan done in 07/2016 showed sacral fracture could be due to the underlying bony lesion. According to the record, the patient didn't want any treatment or diagnostic modalities done. Over past two weeks, his appetite has been poor and has lost more than 10 pounds. He has EKG changes and troponin is negative at this point. He received one liter of NS in ER. NS at 125 ml per hour was ordered at this point. Allergies/Medications Allergies: Coded Allergies: clarithromycin (From BIAXIN) (Severe, FACE AND THROAT SWELLING 07/21/16) Home Med List: Albuterol Sulfate (Proventil Hfa) 90 MCG HFA.AER.AD 2 PUFF INH PRN SOB ( Reported) Budesonide/Formoterol Fumarate (Symbicort 160-4.5 Mcg Inhaler) 160 MCG-4.5 MCG/ ACTUATION HFA.AER.AD 2 PUFF INH BID LUNG CA/SOB (Reported) Ceftriaxone Sodium (Ceftriaxone) 1 GRAM VIAL 1 GM IM DAILY ANTIBIOTIC, INFECTION (Reported) Celecoxib (Celebrex) 100 MG CAPSULE 200 MG PO BID pain Docusate Sodium (Colace) 100 MG CAPSULE 1 CAP PO BID CONSTIPATION (Reported) Ergocalciferol (Vitamin D2) (Vitamin D2) 50,000 UNIT CAPSULE 1 CAP PO QMON SUPPLEMENT (Reported) Fentanyl 50 MCG/HOUR PATCH.TD72 1 PAT TOP Q3D PAIN (Reported) Gabapentin 400 MG CAPSULE 400 MG PO Q8 neuropathic pain Hydromorphone HCl (Dilaudid) 4 MG TABLET 1 TAB PO Q4 HRS NEEDED PRN PAIN SCALE 7-10 (SEVERE) (Reported) Ipratropium/Albuterol Sulfate (Iprat-Albut 0.5-3(2.5) MG/3 Ml) 0.5 MG-3 MG (2.5 MG BASE)/3 ML AMPUL.NEB 1 VIAL INH TID BREATHING PROBLEMS (Reported) Lorazepam (Ativan) 0.5 MG TABLET 0.5 TAB PO Q6-PRN PRN TREMORS (Reported) Multivitamin (Daily Multiple Vitamin) 1 EACH TABLET 1 TAB PO DAILY SUPPLEMENT (Reported) Omeprazole 20 MG CAPSULE.DR 20 MG PO DAILY AC GI PPX Oxycodone HCl 15 MG TABLET 1 TAB PO Q8P PRN PAIN (Reported) Polyethylene Glycol 3350 (Miralax) 17 GRAM/DOSE POWDER 17 GM PO DAILY PRN constipation stop for diarrhea Sennosides/Docusate Sodium (Senna S Tablet) 8.6 MG-50 MG TABLET 2 TAB PO QPM CONSTIPATION (Reported) Thiamine HCl 100 MG TABLET 1 TAB PO DAILY SUPPLEMENT (Reported) Review of Systems Review of Systems Constitutional: Reports: see HPI, weakness, unexplained weight loss. Cardiovascular: Reports: palpitations. Respiratory: Denies: short of breath. GI: Denies: abdominal pain. Neurological/Psychological: Reports: see HPI, confusion. Hematologic/Endocrine: Reports: see HPI. Past History Travel History Traveled to [place] past 21 day No Medical History Neurological: FIBROMYALGIA EENT: NONE Cardiovascular: hypertension Respiratory: LUNG CA Gastrointestinal: NONE Hepatic: NONE Renal: NONE Musculoskeletal: rheumatoid arthritis Psychiatric: NONE Endocrine: NONE Blood Disorders: NONE Cancer(s): NONE Surgical History Surgical History: multiple orthopedic surgeries Family History Relations & Conditions If Any: SISTER FH: lung cancer MOTHER FH: lung cancer FATHER FH: lung cancer Relation not specified for: FH: lung cancer Psychosocial History ETOH Use: occasional use Illicit Drug Use: denies illicit drug use Living Will? Causins, Cinthia and Jorge are POAs. Patient does not wish for any resuscitation Functional Ability Ambulation: cane, sometimes uses a cane Exam & Diagnostic Data Last 24 Hrs of Vital Signs/I&O Vital Signs Date Time Temp Pulse Resp B/P Pulse O2 O2 Flow FiO2 Ox Delivery Rate 08/10 1814 96.7 108 16 163/97 95 Room Air 08/10 1733 97.0 114 18 144/79 96 Room Air Room Air 08/10 1426 97.0 100 22 148/86 92 Nasal 2.0L Cannula 08/10 1258 98.0 98 20 116/79 94 Nasal 2.0L Cannula 08/10 1112 97.0 105 20 103/72 98 Room Air 08/10 1045 98.0 108 20 122/76 92 Nasal 2.0L Cannula 08/10 1021 Nasal 2.0L Cannula 08/10 0949 97.0 118 22 120/76 92 Nasal 2.0L Cannula Intake & Output 08/10 1600 08/10 0800 08/10 0000 Intake Total 1000 Output Total Balance 1000 Intake, IV 1000 Patient 99 lb 15.99 oz Weight Physical Exam General Appearance: anxious, lethargic, mild distress, thin, restless Neck: normal inspection Respiratory: decreased breath sounds Cardiovascular: tachycardia Gastrointestinal: soft, non-tender Extremities: no edema Labs/Celestine Results: Laboratory Tests 08/10 08/10 08/10 1316 1212 1010 Chemistry Sodium (137 - 145 mmol/L) 137 Potassium (3.5 - 5.1 mmol/L) 3.6 Chloride (98 - 107 mmol/L) 101 Carbon Dioxide (22 - 30 mmol/L) 28 Anion Gap (5 - 16) 8 BUN (9 - 20 mg/dL) 18 Creatinine (0.7 - 1.2 mg/dL) 1.0 Estimated GFR (>60 ml/min) > 60 BUN/Creatinine Ratio (7 - 25 %) 18.0 Glucose (65 - 99 mg/dL) 161 H Calcium (8.4 - 10.2 mg/dL) 13.2 H Phosphorus (2.5 - 4.5 mg/dL) 3.7 Magnesium (1.6 - 2.3 mg/dL) 2.5 H Total Bilirubin (0.2 - 1.3 mg/dL) 0.4 AST (17 - 59 U/L) 28 ALT (21 - 72 U/L) 19 L Alkaline Phosphatase (< 127 U/L) 281 H Troponin I (<0.11 ng/ml) < 0.01 Total Protein (6.3 - 8.2 g/dL) 7.6 Albumin (3.5 - 5.0 g/dL) 2.7 L Globulin (1.9 - 4.2 gm/dL) 4.9 H Albumin/Globulin Ratio (1.1 - 2.2 %) 0.6 L 25-OH Vitamin D Total (30 - 100 ng/ml) 37.9 Prolactin (3.7 - 17.9 ng/mL) 9.5 PTH Intact (13.8 - 85 pg/ml) 7.5 L Coagulation D-Dimer (70 - 232 ng/ml) < 200 Urines Urinalysis HEAVY H Urine Color (YEL,AMB,STR) YEL Urine Clarity (CLEAR) HAZY H Urine pH (5.0 - 8.0) 6.5 Ur Specific [place] (1.001 - 1.035) 1.015 Urine Protein (NEG,<30 MG/DL) TRACE H Urine Ketones (NEG) NEG Urine Nitrite (NEG) NEG Urine Bilirubin (NEG) NEG Urine Urobilinogen (0.1 - 1.0 EU/dl) 0.2 Ur Leukocyte Esterase (NEG) NEG Ur Microscopic SEDIMENT EXAMINED Urine RBC (0 - 5 /HPF) RARE Urine WBC (0 - 2 /HPF) RARE Ur Epithelial Cells (NONE,FEW) RARE Urine Bacteria (NEG/NONE) FEW H Granular Casts (NONE /LPF) RARE H Urine Hemoglobin (NEG) NEG Urine Glucose (N MG/DL) NEG / 1010 Chemistry Vit D 1,25-Dihyd Total Pending 1,25 Dihydroxy Vit D2 Pending 1,25 Dihydroxy Vit D3 Pending Coagulation D-Dimer Cancelled Hematology CBC w Diff NO MAN DIFF REQ WBC (4.8 - 10.8 /CUMM) 10.4 RBC (4.70 - 6.10 /CUMM) 4.15 L Hgb (14.0 - 18.0 G/DL) 9.7 L Hct (42 - 52 %) 30.5 L MCV (80.0 - 94.0 FL) 73.5 L MCH (27.0 - 31.0 PG) 23.3 L RDW (11.5 - 14.5 %) 19.2 H Plt Count (130 - 400 /CUMM) 477 H MPV (7.4 - 10.4 FL) 9.3 Gran % (42.2 - 75.2 %) 77.6 H Lymphocytes % (20.5 - 51.1 %) 13.5 L Monocytes % (1.7 - 9.3 %) 6.6 Eosinophils % (0 - 5 %) 1.7 Basophils % (0.0 - 2.0 %) 0.6 Absolute Granulocytes (1.4 - 6.5 /CUMM) 8.0 H Absolute Lymphocytes (1.2 - 3.4 /CUMM) 1.4 Absolute Monocytes (0.10 - 0.60 /CUMM) 0.7 H Absolute Eosinophils (0.0 - 0.7 /CUMM) 0.2 Absolute Basophils (0.0 - 0.2 /CUMM) 0.1 PUBS MCHC (33.0 - 37.0 G/DL) 31.7 L Assessment/Plan Assessment/Plan 56-year-old male with past medical history significant for fibromyalgia, hypertension, recent admission to [facility] for sacral fracture after fall which could be related underlying bony lesion. He has hx of lung cancer and has refused diagnostic procedures and treatment. Today patient presented to the hospital with lethargy and confusion. In ER, his calcium was 13.2, Cr 1.0, Mg 2.5, PHOS 3.7, albumin 2.7 and AKP 282 ( corrected calcium 14.3). His PTH was only 7.5. He has EKG changes and troponin is negative at this point. He received one liter of NS in ER. NS at 125 ml per hour was ordered at this point. Dx: hypercalcemia, PTH independent---? related underlying maligancy management: 1. continue NS iv hydration; 2. recommend starting Pamidronate 60 mg iv infusion in NS over 5 hours; 3. monitor calcium level every 6-8 hours and then the management will be determined accordingly; 4. monitor renal function; 5. recommended checking 1,25 dihydroxy vitamin D level. 6. might consider checking PTHrp as it is indicated. will follow. Consult Acknowledgment - Thank you for your consult request.
--- NOTE | 2016-08-10 19:30 | NUR ---
ABOUT 1930 I WAS STANDING IN 176-POD, I HEARD PT GROANING IN ROOM. I LOOKED IN RM TO SEE IF PT WAS OK, I FOUND PT LAYING ON BATHROOM FLOOD, NO CLOTHES ON.PT WAS AWAKE, SOME CONFUSION- HIS BASELINE ON ADMISSION. I CALLED RN WHO CALLED RAPID RESPONSE. NO SIGNIFICANT APPEARENT INJURIES OR BLEEDING. MILD BLEEDING FROM ARN IV SITE, IV PULLED OUT. MILD SOB, O2SAT HARD TO GET , BUT WAS 78%SAT ON R/A. PT PUT ON 8L NC O2 FOR NOW. PT ON FLOOR , STAFF MOVING HIM TO STRETCHER.WILL RECHECK PT WHEN MORE STABLE.
--- NOTE | 2016-08-10 19:58 | Event Note ---
Event Note Event Note: Around 730pm, rapid response was called. Pt was found on the bathroom floor, soiled in his feces. The bed alarm was on and did not ring when he got out of bed. He was alert, and confused (just like he was in the ER). Vitals and accucheck WNL except for O2 sat 78% on RA, with heart rate around 120s. Assessment: Mechanical fall due to confusion and unsteady gait Plan: CT head and neck Ordered patient safety monitor Follow up labs Make sure bed alarm works Place on 4L NC Hold fentanyl and dilaudid
--- NOTE | 2016-08-10 20:39 | CT SCAN REPORT ---
EXAMINATION: CT HEAD WITHOUT CONTRAST CLINICAL INFORMATION: Fall, trauma, neck pain. COMPARISON: CT scan on 08/10/2016 at 10:01 AM. TECHNIQUE: Contiguous axial imaging was performed from the skull base to vertex without intravenous administration of contrast. In addition, helical noncontrast CT imaging was acquired through the cervical spine and source images were reviewed along with axial reconstructions and sagittal and coronal MPRs. DLP: 981 mGy-cm. FINDINGS: CT HEAD: There is no evidence of acute intracranial hemorrhage or territorial infarction. No abnormal mass effect or midline shift is seen. Frank to white matter differentiation is well preserved. No extra-axial fluid collections are identified. The ventricles are normal in size. There is no abnormal attenuation within the brain parenchyma. The osseous structures and soft tissues are normal. The mastoid air cells and visualized portions of the paranasal sinuses are well aerated. CT CERVICAL SPINE: There is normal vertebral body height and alignment of cervical spine. The intervertebral disc spaces are preserved. The posterior elements are intact. Again noted bulky marginal osteophyte formation at C2-C3 and right-sided facet arthropathy at C3-C4, C4-C5 and C5-C6 level. There is no acute fracture or dislocation of cervical spine. The paraspinal soft tissue is unremarkable. There is partial visualization of postsurgical changes of the right clavicle with metallic plate and screws. There is partial visualization of the pulmonary opacity in the left upper lobe. IMPRESSION: 1. No acute intracranial hemorrhage or skull fracture. 2. No acute cervical spine fracture or dislocation. 3. Partial visualization of left upper lobe consolidation.
[2016-08-10 23:49] VITALS: BP 160/80
--- NOTE | 2016-08-11 00:47 | NUR ---
LATE ENTRY 08/10/2016 1932 PT WAS NOTED ON THE FLOOR.ALERT AND VERBALLY RESPONSIVE.CON FUSED.NOT IN DISTRESS OR DISCOMFORT.RAPID RESPONSED CALLED.VITALS STABLE.COLLAR PUT AROUND PATIENTS NECK,BOARDED AND TAKEN DOWN FOR A CATSCAN.
[2016-08-11 08:15] VITALS: BP 144/70
[2016-08-11 08:16] LABS: ABSOLUTE BASOPHIL COUNT 0 /CUMM (0.0-0.2); ABSOLUTE EOSINOPHIL COUNT 0 /CUMM (0.0-0.7); ABSOLUTE GRANULOCYTE CT 10.7 /CUMM (1.4-6.5); ABSOLUTE LYMPH COUNT 1.3 /CUMM (1.2-3.4); ABSOLUTE MONOCYTE COUNT 0.8 /CUMM (0.10-0.60); BASOPHIL % 0.1 % (0.0-2.0); EOSINOPHIL % 0.3 % (0-5); GRANULOCYTE % 83.2 % (42.2-75.2); HEMATOCRIT 27.7 % (42-52); MEAN CORPUSCULAR HGB 23.3 PG (27.0-31.0); MEAN CORPUSCULAR HGB CONC 31.8 G/DL (33.0-37.0); MEAN CORPUSCULAR VOLUME 73.2 FL (80.0-94.0); MEAN PLATELET VOLUME 9.8 FL (7.4-10.4); PLATELET COUNT 399 /CUMM (130-400); RBC DISTRIBUTION WIDTH 18.7 % (11.5-14.5); RED BLOOD CELL CT 3.78 /CUMM (4.70-6.10); WHITE BLOOD CELL COUNT 12.8 /CUMM (4.8-10.8)
--- NOTE | 2016-08-11 08:39 | PN- Housestaff ---
Subjective Follow-up For: Hypercalcemia Subjective: Patient seen and examiend at bedside this AM. He is extremely lethargic and unable to answer questions to ROS. Review of Systems Constitutional: Reports: see HPI. Objective Last 24 Hrs of Vital Signs/I&O Vital Signs Date Time Temp Pulse Resp B/P Pulse O2 O2 Flow FiO2 Ox Delivery Rate 08/11 0815 98.1 95 18 144/70 99 Nasal 2.0L Cannula 08/11 0801 97 Nasal 2.0L Cannula 08/11 0800 Nasal 2.0L Cannula 08/11 0000 Nasal 4.0L Cannula 08/10 2349 97.2 98 18 160/80 94 Room Air 08/10 2125 97 Nasal 2.0L Cannula 08/100 Nasal 2.0L Cannula 08/10 203 97 Nasal 2.0L Cannula 08/10 1814 96.7 108 16 163/97 95 Room Air 08/10 1733 97.0 114 18 144/79 96 Room Air Room Air 08/10 1426 97.0 100 22 148/86 92 Nasal 2.0L Cannula Intake & Output 08/11 1600 08/11 0800 08/11 0000 Intake Total 1050 400 Output Total Balance 1050 400 Intake, IV 1000 300 Intake, Oral 50 100 Number 1 Bowel Movements Physical Exam General Appearance: Mild Distress, Lethargic and unable to respond to questioning, able to open eyes on command Skin: No Significant Lesion HEENT: Atraumatic Cardiovascular: Normal S1, Normal S2, +Systolic murmur LUSB Lungs: Normal Air Movement Abdomen: Normal Bowel Sounds, Soft, No Tenderness Neurological: Normal Tone Assessment/Plan Assessment: 56-year-old male with PMH of lung cancer (refused biopsy and tx), sacral fracture, was brought from [place] for unwitnessed syncope/fall with altered mental status. His calcium was found to be elevated at 13.2 (with albumin of 2.7 ), with elevated alk phos of 281. Patient admitted to telemetry with the following problems addressed: Problem list: # Hypercalcemia most likely due to malignancy (lung cancer) with syncope/fall and AMS # Hypermagnesiumia # Chronic anemia (baseline 9.7/30.5) # AMS # Hypercalcemia most likely due to malignancy (lung cancer), with seizure/ syncope/fall? and AMS - EKG showed flip T waves on V2 and V3, ST depression on V3. - 1L NS given in ED - (Ca was 10.3 on jul 12, 9.6 on jul 16, 12.3 on aug 06, 13.4 on aug 3, 13.2 on aug 4 day of admission) - PTH low at 7.5 - Phosphorus 3.7 normal * Aggressive hydration, switched to D51/2 NS today due to decreased food intake * Endo consult appreciated, follow recs * S/P pamidronate 60 mg * Follow up Vit D level , 1,25VitD * Consider pth-rp * Serial EKG and trop negative x 2 * Consider heme/onc however pt refused biopsy and treatment for lung cancer # Hypermagnesiumia - Mag 2.5 on admission * Follow mg level, replete as needed #Possible syncope * Cardio consult appreciated * Repeat ecg ordered for tomorrow * COntinue tele monitor for at least 24 more hours * Echo pending f/u results #AMS * Patient extremely lethargic today * Duralgesic patch discontinued due to concerns of AMS * Consider MRI head tomorrow * Neuro consult placed, f/u recs Diet: Regular diet DVT ppx:mech and pharm DNR/DNI Problem List: 1. Fall 2. Altered mental status 3. Hypercalcemia 4. Metastatic lung cancer (metastasis from lung to other site) Pain Ratin Pain Location: n/a Pain Goal: Remain pain free Pain Plan: Per pain pathway Tomorrow's Labs & Rationales: CBC (leukocytosis), BEP, Ca (hypercalcemia)
--- NOTE | 2016-08-11 10:31 | PN- Endocrinology ---
Assessment/Plan Assessment: 56-year-old male with past medical history significant for fibromyalgia, hypertension, recent admission to [facility] for sacral fracture after fall which could be related underlying bony lesion. He has hx of lung cancer and has refused diagnostic procedures and treatment. Today patient presented to the hospital with lethargy and confusion. In ER, his calcium was 13.2, Cr 1.0, Mg 2.5, PHOS 3.7, albumin 2.7 and AKP 282 ( corrected calcium 14.3). His PTH was only 7.5. His hypercalcemia probably is related to underlying maligancy He had EKG changes and troponin has been negative. He received pamidronate 60 mg iv overnight. Currently he is on NS at 125 ml per hour. Overnight, his calcium was 12.8 at 8pm and 12.2 at 6am this morning. However, patient appears lethargic. He is on Fentanyl Patch. Plan: 1. continue current IV hydration. 2. monitor calcium and albumin level tomorrow morning; 3. continue monitor electrolytes, In and Out. 4. if his po intake is poor, I will recommend adding dextrose to his IVF. will follow. Subjective Subjective: Patient appears lethargic. Objective Last 24 Hrs of Vital Signs/I&O Vital Signs Date Time Temp Pulse Resp B/P Pulse O2 O2 Flow FiO2 Ox Delivery Rate 08/11 0815 98.1 95 18 144/70 99 Nasal 2.0L Cannula 08/11 0801 97 Nasal 2.0L Cannula 08/11 0800 Nasal 2.0L Cannula 08/11 0000 Nasal 4.0L Cannula 08/10 2349 97.2 98 18 160/80 94 Room Air 08/10 2125 97 Nasal 2.0L Cannula 08/100 Nasal 2.0L Cannula /2038 97 Nasal 2.0L Cannula / 1814 96.7 108 16 163/97 95 Room Air / 1733 97.0 114 18 144/79 96 Room Air Room Air 08/10 1426 97.0 100 22 148/86 92 Nasal 2.0L Cannula / 1258 98.0 98 20 116/79 94 Nasal 2.0L Cannula / 1112 97.0 105 20 103/72 98 Room Air 03/ 1045 98.0 108 20 122/76 92 Nasal 2.0L Cannula Intake & Output 08/11 1600 08/11 0800 08/11 0000 Intake Total 1050 400 Output Total Balance 1050 400 Intake, IV 1000 300 Intake, Oral 50 100 Number 1 Bowel Movements Results Pertinent Lab/Celestine Results: Laboratory Tests 08/11 08/11 08/11 08/10 08/10 0630 0000 0000 2000 1846 Chemistry Sodium (137 - 145 mmol/L) 138 Potassium (3.5 - 5.1 mmol/L) 3.5 Chloride (98 - 107 mmol/L) 108 H Carbon Dioxide (22 - 30 mmol/L) 22 Anion Gap (5 - 16) 8 BUN (9 - 20 mg/dL) 17 Creatinine (0.7 - 1.2 mg/dL) 0.9 Estimated GFR (>60 ml/min) > 60 BUN/Creatinine Ratio (7 - 25 %) 18.9 Calcium (8.4 - 10.2 mg/dL) 12.2 H Cancelled Cancelled 12.8 H Troponin I (<0.11 ng/ml) Cancelled < 0.01 Hematology CBC w Diff Pending WBC Pending RBC Pending Hgb Pending Hct Pending MCV Pending MCH Pending RDW Pending Plt Count Pending MPV Pending PUBS MCHC Pending 08/10 08/10 1316 1212 Coagulation D-Dimer (70 - 232 ng/ml) < 200 Urines Urinalysis HEAVY H Urine Color (YEL,AMB,STR) YEL Urine Clarity (CLEAR) HAZY H Urine pH (5.0 - 8.0) 6.5 Ur Specific [place] (1.001 - 1.035) 1.015 Urine Protein (NEG,<30 MG/DL) TRACE H Urine Ketones (NEG) NEG Urine Nitrite (NEG) NEG Urine Bilirubin (NEG) NEG Urine Urobilinogen (0.1 - 1.0 EU/dl) 0.2 Ur Leukocyte Esterase (NEG) NEG Ur Microscopic SEDIMENT EXAMINED Urine RBC (0 - 5 /HPF) RARE Urine WBC (0 - 2 /HPF) RARE Ur Epithelial Cells (NONE,FEW) RARE Urine Bacteria (NEG/NONE) FEW H Granular Casts (NONE /LPF) RARE H Urine Hemoglobin (NEG) NEG Urine Glucose (N MG/DL) NEG
--- NOTE | 2016-08-11 12:30 | PN- Att Addend ---
Attending Addendum Attending Brief Note Patient seen and examined, still confused, Calcium is still high. trop neg. Vital Signs Date Time Temp Pulse Resp B/P Pulse O2 O2 Flow FiO2 Ox Delivery Rate 08/11 0815 98.1 95 18 144/70 99 Nasal 2.0L Cannula 08/11 0801 97 Nasal 2.0L Cannula 08/11 0800 Nasal 2.0L Cannula 08/11 0000 Nasal 4.0L Cannula 08/10 2349 97.2 98 18 160/80 94 Room Air 08/10 2125 97 Nasal 2.0L Cannula 08/10 2040 Nasal 2.0L Cannula 08/10 2039 97 Nasal 2.0L Cannula 08/10 1814 96.7 108 16 163/97 95 Room Air 08/10 1733 97.0 114 18 144/79 96 Room Air Room Air 08/10 1426 97.0 100 22 148/86 92 Nasal 2.0L Cannula 08/10 1258 98.0 98 20 116/79 94 Nasal 2.0L Cannula on exam: awake, nad. cv: s1, s2, rrr resp; clear abd; soft, nt, bs+ ext; no edema. Laboratory Tests 08/11 08/11 08/11 0630 0000 0000 Chemistry Sodium (137 - 145 mmol/L) 138 Potassium (3.5 - 5.1 mmol/L) 3.5 Chloride (98 - 107 mmol/L) 108 H Carbon Dioxide (22 - 30 mmol/L) 22 Anion Gap (5 - 16) 8 BUN (9 - 20 mg/dL) 17 Creatinine (0.7 - 1.2 mg/dL) 0.9 Estimated GFR (>60 ml/min) > 60 BUN/Creatinine Ratio (7 - 25 %) 18.9 Calcium (8.4 - 10.2 mg/dL) 12.2 H Cancelled Troponin I Cancelled Hematology CBC w Diff NO MAN DIFF REQ WBC (4.8 - 10.8 /CUMM) 12.8 H RBC (4.70 - 6.10 /CUMM) 3.78 L Hgb (14.0 - 18.0 G/DL) 8.8 L Hct (42 - 52 %) 27.7 L MCV (80.0 - 94.0 FL) 73.2 L MCH (27.0 - 31.0 PG) 23.3 L RDW (11.5 - 14.5 %) 18.7 H Plt Count (130 - 400 /CUMM) 399 MPV (7.4 - 10.4 FL) 9.8 Gran % (42.2 - 75.2 %) 83.2 H Lymphocytes % (20.5 - 51.1 %) 10.3 L Monocytes % (1.7 - 9.3 %) 6.1 Eosinophils % (0 - 5 %) 0.3 Basophils % (0.0 - 2.0 %) 0.1 Absolute Granulocytes (1.4 - 6.5 /CUMM) 10.7 H Absolute Lymphocytes (1.2 - 3.4 /CUMM) 1.3 Absolute Monocytes (0.10 - 0.60 /CUMM) 0.8 H Absolute Eosinophils (0.0 - 0.7 /CUMM) 0 Absolute Basophils (0.0 - 0.2 /CUMM) 0 PUBS MCHC (33.0 - 37.0 G/DL) 31.8 L 08/10 1846 1316 Chemistry Calcium (8.4 - 10.2 mg/dL) Cancelled 12.8 H Troponin I (<0.11 ng/ml) < 0.01 Coagulation D-Dimer (70 - 232 ng/ml) < 200 A/P: 56-year-old male with past medical history significant for fibromyalgia, hypertension, recent admission to [facility] with the fall and sacral fracture which was managed conservatively and also found to have hypercalcemia which was resolved with IV fluids now admitted with fall, confusion, hypercalcemia as well as new EKG changes. No previous echocardiograms available. Trops neg. Please order ECHO Calcium slightly improved. Continue ivfs and follow further recommendations. Continue all other current. Cardiology eval pending. hep sq for dvt px.
--- NOTE | 2016-08-11 13:22 | Cons- Cardiology ---
General Information and HPI Consulting Request Date of Consult: 08/11/16 Requested By: LEEANN HARRISON MD Reason for Consult: Syncope, mental status changes, abnormal ECG Source of Information: old records Exam Limitations: unable to give history, confusion History of Present Illness: The patient is a 56-year-old male. He has a past history of lung cancer, having refused biopsy and treatment, a prior sacral fracture, etc. The patient was brought to [facility] emergency room from the [facility] care facility for further evaluation of increasing mental status changes and confusion. Apparently he was found on the floor at the facility on the day of admission. Their feeling was that he may have passed out for several seconds. It was unclear whether he had any head trauma at that time. The patient apparently reported generalized discomfort. Subsequently, he apparently became increasingly agitated and confused. In the emergency room, the patient was noted to be hypercalcemic Today, the patient is lethargic and confused. No significant obtainable history is possible. Allergies/Medications Allergies: Coded Allergies: clarithromycin (From [employer]) (Severe, FACE AND THROAT SWELLING 07/21/16) Home Med List: Albuterol Sulfate (Proventil Hfa) 90 MCG HFA.AER.AD 2 PUFF INH PRN SOB ( Reported) Budesonide/Formoterol Fumarate (Symbicort 160-4.5 Mcg Inhaler) 160 MCG-4.5 MCG/ ACTUATION HFA.AER.AD 2 PUFF INH BID LUNG CA/SOB (Reported) Ceftriaxone Sodium (Ceftriaxone) 1 GRAM VIAL 1 GM IM DAILY ANTIBIOTIC, INFECTION (Reported) Celecoxib (Celebrex) 100 MG CAPSULE 200 MG PO BID pain Docusate Sodium (Colace) 100 MG CAPSULE 1 CAP PO BID CONSTIPATION (Reported) Ergocalciferol (Vitamin D2) (Vitamin D2) 50,000 UNIT CAPSULE 1 CAP PO QMON SUPPLEMENT (Reported) Fentanyl 50 MCG/HOUR PATCH.TD72 1 PAT TOP Q3D PAIN (Reported) Gabapentin 400 MG CAPSULE 400 MG PO Q8 neuropathic pain Hydromorphone HCl (Dilaudid) 4 MG TABLET 1 TAB PO Q4 HRS NEEDED PRN PAIN SCALE 7-10 (SEVERE) (Reported) Ipratropium/Albuterol Sulfate (Iprat-Albut 0.5-3(2.5) MG/3 Ml) 0.5 MG-3 MG (2.5 MG BASE)/3 ML AMPUL.NEB 1 VIAL INH TID BREATHING PROBLEMS (Reported) Lorazepam (Ativan) 0.5 MG TABLET 0.5 TAB PO Q6-PRN PRN TREMORS (Reported) Multivitamin (Daily Multiple Vitamin) 1 EACH TABLET 1 TAB PO DAILY SUPPLEMENT (Reported) Omeprazole 20 MG CAPSULE.DR 20 MG PO DAILY AC GI PPX Oxycodone HCl 15 MG TABLET 1 TAB PO Q8P PRN PAIN (Reported) Polyethylene Glycol 3350 (Miralax) 17 GRAM/DOSE POWDER 17 GM PO DAILY PRN constipation stop for diarrhea Sennosides/Docusate Sodium (Senna S Tablet) 8.6 MG-50 MG TABLET 2 TAB PO QPM CONSTIPATION (Reported) Thiamine HCl 100 MG TABLET 1 TAB PO DAILY SUPPLEMENT (Reported) Current Medications: Current Medications Sig/Bonnie Start time Last Medication Dose Route Stop Time Status Admin Albuterol Sulfate 3 ML TID 08/10 2200 AC 08/11 INH 0759 Budesonide/ 2 PUF BID 08/10 2200 AC 08/11 Formoterol Fumarate INH 1111 Celecoxib 200 MG BID 08/10 2200 AC 08/11 PO 1112 Dextrose/Sodium 1,000 ML Q10H / 1045 AC 08/11 Chloride IV 1111 Fentanyl Citrate 50 MCG Q3D 08/10 1800 DC 08/10 TOP 1902 Gabapentin 400 MG Q8 08/10 2200 AC / PO 0552 Heparin Sodium 5,000 UNIT Q8 / 1746 AC 08/11 (Porcine) SC 0552 Hydromorphone HCl 4 MG Q4P PRN 08/10 1800 DC PO Ipratropium [place] 2.5 ML TID 08/10 2200 AC 08/11 INH 0759 Lorazepam 0.25 MG Q6-PRN PRN / 1800 AC PO 08/17 1759 Omeprazole 20 MG DAILY AC 08/11 0700 AC 08/11 PO 0552 Oxycodone HCl 15 MG Q8P PRN / 1800 AC PO Pamidronate Disodium 60 MG ONE ONE 08/10 1830 DC 03/04 Sodium Chloride 500 ML IV 08/10 2329 2206 Patient Medication 1 UNIT ONE NR 08/10 1815 NH Teaching ED 08/10 1830 Patient Medication 1 UNIT ONE NR 08/10 1815 NH Teaching ED 08/10 1830 Polyethylene Glycol 17 GM DAILY PRN 08/10 1800 AC PO Senna/Docusate Sodium 2 TAB QPM 08/10 2200 AC / PO 2207 Sodium Chloride 1,000 ML 150 MLS/HR 08/11 1030 CAN IV Sodium Chloride 1,000 ML Q8H 08/10 1745 DC 08/11 IV 1031 Thiamine HCl 100 MG DAILY 08/10 1749 AC 08/11 PO 1112 Past History Travel History Traveled to [place] past 21 day No Medical History Neurological: FIBROMYALGIA EENT: NONE Cardiovascular: hypertension Respiratory: LUNG CA Gastrointestinal: NONE Hepatic: NONE Renal: NONE Musculoskeletal: rheumatoid arthritis Psychiatric: NONE Endocrine: NONE Blood Disorders: NONE Cancer(s): NONE Surgical History Surgical History: multiple orthopedic surgeries Family History Relations & Conditions If Any: SISTER FH: lung cancer MOTHER FH: lung cancer FATHER FH: lung cancer Relation not specified for: FH: lung cancer Psychosocial History Where Do You Live? Prison Facility Smoking Status: Smoker Current Stat Ukn ETOH Use: occasional use Illicit Drug Use: denies illicit drug use Living Will? Bernadette, Cinthia and Jorge are POAs. Patient does not wish for any resuscitation Functional Ability Ambulation: cane, sometimes uses a cane Exam & Diagnostic Data Vital Signs and I&O Vital Signs Date Time Temp Pulse Resp B/P Pulse O2 O2 Flow FiO2 Ox Delivery Rate 08/11 0815 98.1 95 18 144/70 99 Nasal 2.0L Cannula 08/11 0801 97 Nasal 2.0L Cannula 08/11 08 Nasal 2.0L Cannula 08/11 0000 Nasal 4.0L Cannula 08/10 2349 97.2 98 18 160/80 94 Room Air 08/10 2125 97 Nasal 2.0L Cannula 08/11 2039 Nasal 2.0L Cannula 08/10 2038 97 Nasal 2.0L Cannula 08/10 181 96.7 108 16 163/97 95 Room Air 08/10 1733 97.0 114 18 144/79 96 Room Air Room Air 08/10 1426 97.0 100 22 148/86 92 Nasal 2.0L Cannula Intake & Output 08/11 1600 /05 0800 03/05 0000 / 1600 08/10 0800 / 0000 Intake Total 1480 944 4306 Output Total Balance 1649 099 0934 Intake, IV 1144 395 1523 Intake, Oral 50 100 Number 1 Bowel Movements Patient 99 lb 15.99 oz Weight Physical Exam: General Appearance lethargic and confused Skin normal; multiple tattoos HEENT unremarkable Neck Supple, +2 Carotid Pulse wo Bruit, No LAD Lymphatic Axillary nl, Cervical nl Cardiovascular Normal S1, Normal S2, 1 to 2/6 systolic murmur left upper sternal border Lungs Clear to Auscultation and percussion bilaterally Abdomen Normal Bowel Sounds, Soft, No Tenderness Neurological grossly nonfocal Extremities No Edema, Normal Pulses Labs/Celestine Results: Laboratory Tests 08/11 08/11 08/11 0630 0000 0000 Chemistry Sodium (137 - 145 mmol/L) 138 Potassium (3.5 - 5.1 mmol/L) 3.5 Chloride (98 - 107 mmol/L) 108 H Carbon Dioxide (22 - 30 mmol/L) 22 Anion Gap (5 - 16) 8 BUN (9 - 20 mg/dL) 17 Creatinine (0.7 - 1.2 mg/dL) 0.9 Estimated GFR (>60 ml/min) > 60 BUN/Creatinine Ratio (7 - 25 %) 18.9 Calcium (8.4 - 10.2 mg/dL) 12.2 H Cancelled Troponin I Cancelled Hematology CBC w Diff NO MAN DIFF REQ WBC (4.8 - 10.8 /CUMM) 12.8 H RBC (4.70 - 6.10 /CUMM) 3.78 L Hgb (14.0 - 18.0 G/DL) 8.8 L Hct (42 - 52 %) 27.7 L MCV (80.0 - 94.0 FL) 73.2 L MCH (27.0 - 31.0 PG) 23.3 L RDW (11.5 - 14.5 %) 18.7 H Plt Count (130 - 400 /CUMM) 399 MPV (7.4 - 10.4 FL) 9.8 Gran % (42.2 - 75.2 %) 83.2 H Lymphocytes % (20.5 - 51.1 %) 10.3 L Monocytes % (1.7 - 9.3 %) 6.1 Eosinophils % (0 - 5 %) 0.3 Basophils % (0.0 - 2.0 %) 0.1 Absolute Granulocytes (1.4 - 6.5 /CUMM) 10.7 H Absolute Lymphocytes (1.2 - 3.4 /CUMM) 1.3 Absolute Monocytes (0.10 - 0.60 /CUMM) 0.8 H Absolute Eosinophils (0.0 - 0.7 /CUMM) 0 Absolute Basophils (0.0 - 0.2 /CUMM) 0 PUBS MCHC (33.0 - 37.0 G/DL) 31.8 L 08/10 1846 1316 Chemistry Calcium (8.4 - 10.2 mg/dL) Cancelled 12.8 H Troponin I (<0.11 ng/ml) < 0.01 Coagulation D-Dimer (70 - 232 ng/ml) < 200 08/10 08/10 1212 1010 Chemistry Sodium (137 - 145 mmol/L) 137 Potassium (3.5 - 5.1 mmol/L) 3.6 Chloride (98 - 107 mmol/L) 101 Carbon Dioxide (22 - 30 mmol/L) 28 Anion Gap (5 - 16) 8 BUN (9 - 20 mg/dL) 18 Creatinine (0.7 - 1.2 mg/dL) 1.0 Estimated GFR (>60 ml/min) > 60 BUN/Creatinine Ratio (7 - 25 %) 18.0 Glucose (65 - 99 mg/dL) 161 H Calcium (8.4 - 10.2 mg/dL) 13.2 H Phosphorus (2.5 - 4.5 mg/dL) 3.7 Magnesium (1.6 - 2.3 mg/dL) 2.5 H Total Bilirubin (0.2 - 1.3 mg/dL) 0.4 AST (17 - 59 U/L) 28 ALT (21 - 72 U/L) 19 L Alkaline Phosphatase (< 127 U/L) 281 H Troponin I (<0.11 ng/ml) < 0.01 Total Protein (6.3 - 8.2 g/dL) 7.6 Albumin (3.5 - 5.0 g/dL) 2.7 L Globulin (1.9 - 4.2 gm/dL) 4.9 H Albumin/Globulin Ratio (1.1 - 2.2 %) 0.6 L 25-OH Vitamin D Total (30 - 100 ng/ml) 37.9 Prolactin (3.7 - 17.9 ng/mL) 9.5 PTH Intact (13.8 - 85 pg/ml) 7.5 L Urines Urinalysis HEAVY H Urine Color (YEL,AMB,STR) YEL Urine Clarity (CLEAR) HAZY H Urine pH (5.0 - 8.0) 6.5 Ur Specific [place] (1.001 - 1.035) 1.015 Urine Protein (NEG,<30 MG/DL) TRACE H Urine Ketones (NEG) NEG Urine Nitrite (NEG) NEG Urine Bilirubin (NEG) NEG Urine Urobilinogen (0.1 - 1.0 EU/dl) 0.2 Ur Leukocyte Esterase (NEG) NEG Ur Microscopic SEDIMENT EXAMINED Urine RBC (0 - 5 /HPF) RARE Urine WBC (0 - 2 /HPF) RARE Ur Epithelial Cells (NONE,FEW) RARE Urine Bacteria (NEG/NONE) FEW H Granular Casts (NONE /LPF) RARE H Urine Hemoglobin (NEG) NEG Urine Glucose (N MG/DL) NEG / 1010 Chemistry Vit D 1,25-Dihyd Total Pending 1,25 Dihydroxy Vit D2 Pending 1,25 Dihydroxy Vit D3 Pending Coagulation D-Dimer Cancelled Hematology CBC w Diff NO MAN DIFF REQ WBC (4.8 - 10.8 /CUMM) 10.4 RBC (4.70 - 6.10 /CUMM) 4.15 L Hgb (14.0 - 18.0 G/DL) 9.7 L Hct (42 - 52 %) 30.5 L MCV (80.0 - 94.0 FL) 73.5 L MCH (27.0 - 31.0 PG) 23.3 L RDW (11.5 - 14.5 %) 19.2 H Plt Count (130 - 400 /CUMM) 477 H MPV (7.4 - 10.4 FL) 9.3 Gran % (42.2 - 75.2 %) 77.6 H Lymphocytes % (20.5 - 51.1 %) 13.5 L Monocytes % (1.7 - 9.3 %) 6.6 Eosinophils % (0 - 5 %) 1.7 Basophils % (0.0 - 2.0 %) 0.6 Absolute Granulocytes (1.4 - 6.5 /CUMM) 8.0 H Absolute Lymphocytes (1.2 - 3.4 /CUMM) 1.4 Absolute Monocytes (0.10 - 0.60 /CUMM) 0.7 H Absolute Eosinophils (0.0 - 0.7 /CUMM) 0.2 Absolute Basophils (0.0 - 0.2 /CUMM) 0.1 PUBS MCHC (33.0 - 37.0 G/DL) 31.7 L Diagnostic Data EKG Results Sinus rhythm/sinus tachycardia with nonspecific ST-T changes CXR Results FINDINGS: The patient's known malignancy is better depicted on his recent chest CT. There is masslike opacity in the region of the left hilum which extends into the left upper and mid lung. Reticular opacities are seen in both lungs, left greater than right. No definite new consolidation or overt pulmonary edema is appreciated. Heart size is within the range of normal. There are no pleural effusions. IMPRESSION: Abnormal appearance of the chest due to the patient's known primary bronchogenic malignancy. No definite new superimposed airspace consolidation. Other Results Head CT: MPRESSION: 1. No acute intracranial hemorrhage or skull fracture. 2. No acute cervical spine fracture or dislocation. 3. Partial visualization of left upper lobe consolidation. Assessment/Plan Assessment/Plan Assessment: 1. Possible syncope-at the present time, review of the available records, raises the possibility of a syncopal episode although not witnessed. For now, the patient should be monitored on telemetry. 2. Abnormal ECG-possibly related to hypercalcemia. Follow-up ECG pending. 3. Hypercalcemia-as noted, likely related to malignancy. 4. Known history of lung malignancy 5. Worsening microcytic anemia 6. Worsening mental status changes-the patient's degree of lethargy and confusion seems out of proportion to his hypercalcemia. Possible medication- related issues, other possibilities remain to be excluded. At some point, an MRI of head might be useful. Recommendations: -Please check a follow-up ECG in 24 hours -Keep the patient on the ladle mechanic for at least another 24 hours -Echocardiogram pending -Consider MRI of the head -Further plans after the above Consult Acknowledgment - Thank you for your consult request.
[2016-08-11 15:29] VITALS: BP 136/82
--- NOTE | 2016-08-11 20:40 | ECHOCARDIOGRAM REPORT ---
VIDAL AGUAYO Age: 56 : 1960 Gender: M Exam Date: 08/11/2016 13:49 Exam Location: 1 [address] Ht (in): 68 Wt (lb): 100 BSA: 1.45 BP: 144 / 70 Ordering Physician: AALIYAH BARR MD Referring Physician: Magi Sarmiento MD Technologist: Yuliet Espinosa [facility] Room Number: 176 Indications: HYPERTENSION Rhythm: Sinus Technical Quality: Fair, Technically difficult study FINDINGS Left Ventricle Normal size left ventricle. No obvious regional wall motion abnormalities. Normal left ventricular ejection fraction estimated at 60-65%. Right Ventricle Right ventricle not well visualized. Right Atrium Right atrium not well visualized, grossly normal. Left Atrium Normal left atrial size. Mitral Valve Mitral valve thickened. Trace mitral regurgitation. Aortic Valve Trileaflet aortic valve. Diffuse thickening (sclerosis) of the aortic valve cusps without reduced excursion. No aortic stenosis. No aortic regurgitation. Tricuspid Valve Tricuspid valve not well visualized, grossly normal. Trace to mild tricuspid regurgitation. Pulmonic Valve Pulmonic valve not well visualized. Pericardium No pericardial effusion. Great Vessels Aortic root and proximal ascending aorta not well visualized, grossly normal. CONCLUSIONS 1. THis was a technically difficult examination. 2. Aortic sclerosis is present with no valvular stenosis or insufficiency. 3. Mitral leaflet thickening is present with minimal mitral insufficiency. 4. There is no pericardial fluid detected. 5. The left ventricular chamber size and systolic function appear normal. 6. The right heart structures were not optimally assessed. Minimal to mild tricuspid insufficiency is present but the RV systolic pressure could not be assessed on this examination. Magi Sarmiento M.D. (Electronically Signed) Final Date: 11 August 2016 20:39 MEASUREMENTS (Male / Female) Normal Values 2D ECHO LV Diastolic Diameter PLAX 3.3 cm 4.2 - 5.9 / 3.9 - 5.3 cm LV Systolic Diameter PLAX 1.9 cm 2.1 - 4.0 cm LV Fractional Shortening PLAX 42.4 % 25 - 46 % LV Ejection Fraction 2D Teich 74.7 % IVS Diastolic Thickness 1.1 cm LVPW Diastolic Thickness 1.1 cm LV Relative Wall Thickness 0.7 RV Internal Dim ED PLAX 2.8 cm 1.9 - 3.8 cm LVOT Diameter 1.9 cm Aortic Root Diameter 2.9 cm LA Systolic Diameter LX 2.6 cm 3.0 - 4.0 / 2.7 - 3.8 cm LA Volume 19.0 cm 18 - 58 / 22 - 52 cm Ascending Aorta Diameter 2.6 cm DOPPLER AV Peak Velocity 146.0 cm/s AV Peak Gradient 8.5 mmHg AV Mean Velocity 100.0 cm/s AV Mean Gradient 5.0 mmHg AV Velocity Time Integral 23.0 cm LVOT Peak Velocity 127.0 cm/s LVOT Peak Gradient 6.5 mmHg LVOT Mean Velocity 82.0 cm/s LVOT Mean Gradient 3.0 mmHg LVOT Velocity Time Integral 20.7 cm LVOT Stroke Volume 58.7 cm AV Area Cont Eq vti 2.6 cm AV Area Cont Eq pk 2.5 cm MV Peak Velocity 83.5 cm/s MV Peak Gradient 2.8 mmHg MV Mean Velocity 65.2 cm/s MV Mean Gradient 2.0 mmHg Mitral E Point Velocity 78.8 cm/s Mitral A Point Velocity 74.5 cm/s Mitral E to A Ratio 1.1 MV PHT Velocity 88.6 cm/s MV Deceleration Hickman 883.0 cm/s MV Pressure Half Time 30.1 ms MV Area PHT 7.3 cm MV Deceleration Time 95.0 ms PV Peak Velocity 106.0 cm/s PV Peak Gradient 4.5 mmHg PV Mean Velocity 71.8 cm/s PV Mean Gradient 2.0 mmHg PV Velocity Time Integral 14.1 cm LV E' Lateral Velocity 12.8 cm/s Mitral E to LV E' Lateral Ratio 6.2 LV E' Septal Velocity 8.7 cm/s Mitral E to LV E' Septal Ratio 9.1
[2016-08-11 23:34] VITALS: BP 140/80
--- NOTE | 2016-08-12 08:03 | PN- Housestaff ---
See Addendum Subjective Follow-up For: HYPERCALCEMIA Tele-Events Since Last Visit: SR ST 100-106 Subjective: Pt was seen and examined this morning, he was alert, and mentation seems improved although he is still not oriented to person or place, but oriented to year. He has not been eating much and said he just does not feel like it. I fed him ice cream at bedside but he only ate about a spoonful. he does complain of pain everywhere, same complaints he was having on admission. He is on bilateral restraints (UE) for unsafe ambulation. Currently on 1L o2 NC without any respiratory distress. EKG from this morning reviewed and showed improvement of ST depression on V3. Pt can probably come off telemetry today. noted improvement in calcium to 10.5 today (albumin 2.2). mag down from 2.5 to 1.7, will replete with 1 X iv mag. K down from 3.5 to 2.8. will replete with 2X10 KCL IV, 4 doses of 20meq klor. very hard to give po meds to him as sometimes he accuses people of poisoning him. Review of Systems Constitutional: Reports: see HPI. Objective Last 24 Hrs of Vital Signs/I&O Vital Signs Date Time Temp Pulse Resp B/P Pulse O2 O2 Flow FiO2 Ox Delivery Rate 08/12 0000 Nasal 1.0L Cannula 08/11 2334 98.1 105 18 140/80 97 Nasal 1.0L Cannula 08/11 2020 100 Nasal 2.0L Cannula 08/11 1529 98.6 107 18 136/82 97 08/11 0815 98.1 95 18 144/70 99 Nasal 2.0L Cannula Intake & Output 08/12 1600 08/12 0800 08/12 0000 Intake Total 100 Output Total Balance 100 Intake, Oral 100 Physical Exam General Appearance: Alert, Cooperative, No Acute Distress Skin: No Significant Lesion HEENT: Atraumatic Cardiovascular: Normal S1, Normal S2, tachycardic Lungs: Clear to Auscultation, Normal Air Movement Abdomen: Normal Bowel Sounds, Soft, No Tenderness Extremities: No Edema, on BL UE restraints , wearing alps Current Medications: Current Medications Sig/Bonnie Start time Last Medication Dose Route Stop Time Status Admin Albuterol Sulfate 3 ML TID 08/10 2199 AC 08/11 INH 2019 Budesonide/ 2 PUF BID 08/10 2199 AC 08/11 Formoterol Fumarate INH 2122 Celecoxib 200 MG BID 08/10 220 AC 08/11 PO 2122 Dextrose/Sodium 1,000 ML Q10H 08/11 1045 AC 08/12 Chloride IV 0756 Gabapentin 400 MG Q8 08/10 220 AC 08/12 PO 0600 Heparin Sodium 5,000 UNIT Q8 08/10 1746 AC 08/12 (Porcine) SC 0600 Ipratropium [place] 2.5 ML TID 08/10 2199 AC 08/11 INH 2020 Lorazepam 0.25 MG Q6-PRN PRN 08/10 1800 AC PO 08/17 175 Omeprazole 20 MG DAILY AC 08/11 0700 AC 08/12 PO 0657 Oxycodone HCl 15 MG Q8P PRN 08/10 1800 AC PO Polyethylene Glycol 17 GM DAILY PRN 08/10 1800 AC PO Senna/Docusate Sodium 2 TAB QPM 08/10 220 AC 08/11 PO 2121 Sodium Chloride 1,000 ML 150 MLS/HR 08/11 1030 CAN IV Sodium Chloride 1,000 ML Q8H 08/10 174 DC 08/11 IV 1031 Thiamine HCl 100 MG DAILY 08/10 174 AC 08/11 PO 1112 Last 24 Hrs of Lab/Celestine Results Last 24 Hrs of Labs/Mics: Laboratory Tests 08/12/16 0735: CBC w Diff NO MAN DIFF REQ, RBC 3.57 L, MCV 72.7 L, MCH 23.1 L, RDW 19.5 H, MPV 8.6, Gran % 78.7 H, Lymphocytes % 11.4 L, Monocytes % 6.1, Eosinophils % 3.7, Basophils % 0.1, Absolute Granulocytes 6.7 H, Absolute Lymphocytes 1.0 L, Absolute Monocytes 0.5, Absolute Eosinophils 0.3, Absolute Basophils 0, PUBS MCHC 31.8 L 08/12/16 0725: Anion Gap 8, Estimated GFR > 60, BUN/Creatinine Ratio 11.1, Calcium 10.5 H, Magnesium 1.7, Albumin 2.2 L Assessment/Plan Assessment: 56-year-old male with PMH of lung cancer (refused biopsy and tx), sacral fracture, was brought from [place] for unwitnessed syncope/fall with altered mental status. His calcium was found to be elevated at 13.2 (with albumin of 2.7 ), with elevated alk phos of 281. Patient admitted to telemetry with the following problems addressed: Problem list: # Hypercalcemia most likely due to malignancy (lung cancer) with syncope/fall/ seizure and AMS (improved) # Hypermagnesiumia # Chronic anemia (baseline 9.7/30.5), dropping h/h # Leukocytosis # Hypercalcemia most likely due to malignancy (lung cancer), with seizure/ syncope/fall? and AMS - EKG showed flip T waves on V2 and V3, ST depression on V3. - 1L NS given in ED - (Ca was 10.3 on jul 12, 9.6 on jul 16, 12.3 on aug 06, 13.4 on aug 3, 13.2 on aug 4 day of admission), corrected calcium on admission was 14.3 - PTH low at 7.5, Vit D level 25-oh 37.9 - Phosphorus 3.7 normal * 3/6: noted improvement in calcium to 10.5 today (albumin 2.2). * Aggressive hydration * Endo consult appreciated, follow recs * S/P pamidronate 60 mg * Follow up 1,25VitD * Consider pth-rp * Consider heme/onc however pt refused biopsy and treatment for lung cancer # AMS (improved) - Prolactin 9.5 * Duralgesic patch and dilaudid discontinued due to concerns of AMS * Follow up MRI head for possible brain mets (pt still on restrains, probably unable to stay still in MRI, will try to do it on friday. * Follow up EEG * Neuro consult placed, f/u recs # Possible syncope - Echo: Normal size left ventricle. No obvious regional wall motion abnormalities. Normal left ventricular ejection fraction estimated at 60-65%. * Serial EKG and trop negative x 2 * Cardio consult appreciated (Dr. Sarmiento) * Continue tele considering current hypokalemia # Hypermagnesiumia - Mag 2.5 on admission * Follow mg level, replete as needed * 3/6 mag down from 2.5 to 1.7, will replete with 1 X iv mag. # Hypokalemia * 3/6: K down from 3.5 to 2.8. will replete with 2X10 KCL IV, 4 doses of 20meq klor. very hard to give po meds to him as sometimes he accuses people of poisoning him. change ivf from d5w to 40meq kcl with d51/2ns at 100ml/hr * f/u BEP,mag, calcium at 6pm # Chronic anemia (baseline 9.7/30.5), dropping h/h * Monitor h/h # Leukocytosis * Monitor wbc Diet: Regular diet DVT ppx:mech and pharm DNR/DNI Problem List: 1. Hypercalcemia 2. Altered mental status 3. Fall Pain Ratin Pain Location: everywhere Pain Goal: Pain 7 or less Pain Plan: mod pp (holding dilaudid and fentanyl due to AMS and fall risk) Tomorrow's Labs & Rationales: BEP,ca, albumin for hypercalcemia mag for hypomag cbc for leukocytosis and dropping h/h DVT/Prophylaxis: mechanical, pharmacological
[2016-08-12 08:25] VITALS: BP 160/90
--- NOTE | 2016-08-12 08:31 | PN- Endocrinology ---
Assessment/Plan Assessment: 56-year-old male with past medical history significant for fibromyalgia, hypertension, recent admission to [facility] for sacral fracture after fall which could be related underlying bony lesion. He has hx of lung cancer and has refused diagnostic procedures and treatment. Today patient presented to the hospital with lethargy and confusion. In ER, his calcium was 13.2, Cr 1.0, Mg 2.5, PHOS 3.7, albumin 2.7 and AKP 282 ( corrected calcium 14.3). His PTH was only 7.5. His hypercalcemia probably is related to underlying maligancy He had EKG changes and troponin has been negative. He received pamidronate 60 mg iv on 08/10/2016. calcium was 12.2 on 08/11/2016. Repeat calcium and albumin from this morning is still pending. Patient appears less lethargic. But he is still confused. His po intake can been poor. Now he is on D5NS at 100 ml/hour. Plan: continue the current IVF continue monitoring his calcium level. will follow. Subjective Subjective: He is confused. Objective Last 24 Hrs of Vital Signs/I&O Vital Signs Date Time Temp Pulse Resp B/P Pulse O2 O2 Flow FiO2 Ox Delivery Rate 08/12 0825 92 Nasal 1.0L Cannula 08/12 0000 Nasal 1.0L Cannula 08/11 2334 98.1 105 18 140/80 97 Nasal 1.0L Cannula 08/11 2020 100 Nasal 2.0L Cannula 08/11 1529 98.6 107 18 136/82 97 Intake & Output 08/12 1600 08/12 0800 08/12 0000 Intake Total 100 Output Total Balance 100 Intake, Oral 100 Results Pertinent Lab/Celestine Results: Laboratory Tests 08/12 08/12 0735 0725 Chemistry Sodium Pending Potassium Pending Chloride Pending Carbon Dioxide Pending Anion Gap Pending BUN Pending Creatinine Pending BUN/Creatinine Ratio Pending Calcium Pending Magnesium Pending Albumin Pending Hematology CBC w Diff Pending WBC Pending RBC Pending Hgb Pending Hct Pending MCV Pending MCH Pending RDW Pending Plt Count Pending MPV Pending PUBS MCHC Pending
[2016-08-12 08:54] LABS: ABSOLUTE BASOPHIL COUNT 0 /CUMM (0.0-0.2); ABSOLUTE EOSINOPHIL COUNT 0.3 /CUMM (0.0-0.7); ABSOLUTE GRANULOCYTE CT 6.7 /CUMM (1.4-6.5); ABSOLUTE MONOCYTE COUNT 0.5 /CUMM (0.10-0.60); BASOPHIL % 0.1 % (0.0-2.0); EOSINOPHIL % 3.7 % (0-5); GRANULOCYTE % 78.7 % (42.2-75.2); MEAN CORPUSCULAR HGB 23.1 PG (27.0-31.0); MEAN CORPUSCULAR HGB CONC 31.8 G/DL (33.0-37.0); MEAN CORPUSCULAR VOLUME 72.7 FL (80.0-94.0); MEAN PLATELET VOLUME 8.6 FL (7.4-10.4); PLATELET COUNT 378 /CUMM (130-400); RBC DISTRIBUTION WIDTH 19.5 % (11.5-14.5); RED BLOOD CELL CT 3.57 /CUMM (4.70-6.10); WHITE BLOOD CELL COUNT 8.5 /CUMM (4.8-10.8)
--- NOTE | 2016-08-12 10:31 | PN- Cardiology ---
Subjective Subjective: The patient is sleepy. He denies any chest pain, palpitations, shortness of breath. 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 Objective Vital Signs and I&Os Vital Signs Date Time Temp Pulse Resp B/P Pulse O2 O2 Flow FiO2 Ox Delivery Rate 08/12 0845 97 Nasal 2.0L Cannula 08/12 08 98.6 96 20 160/90 98 Nasal 1.5L Cannula 08/12 0825 92 Nasal 1.0L Cannula 08/12 0000 Nasal 1.0L Cannula 08/11 2334 98.1 105 18 140/80 97 Nasal 1.0L Cannula 08/11 2020 100 Nasal 2.0L Cannula 08/11 1529 98.6 107 18 136/82 97 Intake & Output 08/12 1600 08/12 0808/12 0000 08/11 1600 08/11 0808/11 0000 Intake Total 902 935 1420 1050 400 Output Total Balance 025 311 2541 1050 400 Intake, IV 800 1000 1000 300 Intake, Oral 100 100 240 50 100 Number 1 Bowel Movements Physical Exam: Gen: NAD HEENT: normal Lungs: clear to auscultation, normal resp. effort Heart: RRR, S1, S2, 1/6 systolic murmur Abdomen: Soft, nontender, no masses Extremities: No clubbing, cyanosis, or edema. Neuro: Alert and oriented x 3, cranial nerves intact Current Medications: Current Medications Sig/Bonnie Start time Last Medication Dose Route Stop Time Status Admin Albuterol Sulfate 3 ML TID 08/10 2199 AC 08/12 INH 0834 Budesonide/ 2 PUF BID 08/10 2199 AC 08/12 Formoterol Fumarate INH 0926 Celecoxib 200 MG BID 08/10 2199 AC 08/12 PO 0922 Dextrose/Sodium 1,000 ML Q10H 08/11 1045 DC 08/12 Chloride IV 0756 Gabapentin 400 MG Q8 08/10 220 AC 08/12 PO 0600 Heparin Sodium 5,000 UNIT Q8 08/10 1746 AC 08/12 (Porcine) SC 0600 Ipratropium Hendrum 2.5 ML TID 08/10 2199 AC 08/12 INH 0834 Lorazepam 0.25 MG Q6-PRN PRN 08/10 1800 AC PO 08/17 1759 Magnesium Sulfate 1 GM ONCE ONE 08/12 09 AC 08/12 Dextrose/Water 100 ML IV 08/12 1259 0926 Omeprazole 20 MG DAILY AC 08/11 0700 AC 08/12 PO 0657 Oxycodone HCl 15 MG Q8P PRN 08/10 1800 AC PO Polyethylene Glycol 17 GM DAILY PRN 08/10 1800 AC PO Potassium Chloride 40 MEQ Q10H 08/12 0900 AC 08/12 Dextrose/Sodium 1,000 ML IV 0924 Chloride Potassium Chloride 10 MEQ Q1H 08/12 0845 DC IV 08/12 0946 Potassium Chloride 20 MEQ BID 08/12 0845 AC 08/12 PO 08/13 1001 0924 Potassium Chloride 40 MEQ Q10H 08/12 0845 DC Dextrose/Water 1,000 ML IV Senna/Docusate Sodium 2 TAB QPM 08/10 2200 AC 08/11 PO 2121 Sodium Chloride 1,000 ML Q8H 08/10 1745 DC 08/11 IV 1031 Thiamine HCl 100 MG DAILY 08/10 1749 AC 08/12 PO 0922 Results Last 48 Hrs of Labs/Mics: Laboratory Tests 08/12/16 0735: CBC w Diff NO MAN DIFF REQ, RBC 3.57 L, MCV 72.7 L, MCH 23.1 L, RDW 19.5 H, MPV 8.6, Gran % 78.7 H, Lymphocytes % 11.4 L, Monocytes % 6.1, Eosinophils % 3.7, Basophils % 0.1, Absolute Granulocytes 6.7 H, Absolute Lymphocytes 1.0 L, Absolute Monocytes 0.5, Absolute Eosinophils 0.3, Absolute Basophils 0, PUBS MCHC 31.8 L 08/12/16 0725: Anion Gap 8, Estimated GFR > 60, BUN/Creatinine Ratio 11.1, Calcium 10.5 H, Magnesium 1.7, Albumin 2.2 L 08/11/16 0630: Anion Gap 8, Estimated GFR > 60, BUN/Creatinine Ratio 18.9, Calcium 12.2 H, CBC w Diff NO MAN DIFF REQ, RBC 3.78 L, MCV 73.2 L, MCH 23.3 L, RDW 18.7 H, MPV 9.8, Gran % 83.2 H, Lymphocytes % 10.3 L, Monocytes % 6.1, Eosinophils % 0.3, Basophils % 0.1, Absolute Granulocytes 10.7 H, Absolute Lymphocytes 1.3, Absolute Monocytes 0.8 H, Absolute Eosinophils 0, Absolute Basophils 0, PUBS MCHC 31.8 L 08/11/16 0000: Troponin I Cancelled 08/11/16 0000: Calcium Cancelled 08/10/16 2000: Calcium Cancelled 08/10/16 1846: Calcium 12.8 H, Troponin I < 0.01 08/10/16 1316: D-Dimer < 200 08/10/16 1212: Urinalysis HEAVY H, Urine Color YEL, Urine Clarity HAZY H, Urine pH 6.5, Ur Specific Means 1.015, Urine Protein TRACE H, Urine Ketones NEG, Urine Nitrite NEG, Urine Bilirubin NEG, Urine Urobilinogen 0.2, Ur Leukocyte Esterase NEG, Ur Microscopic SEDIMENT EXAMINED, Urine RBC RARE, Urine WBC RARE, Ur Epithelial Cells RARE, Urine Bacteria FEW H, Granular Casts RARE H, Urine Hemoglobin NEG, Urine Glucose NEG Recent Imaging Studies: EKG today reveals normal sinus rhythm at 96 with right bundle-branch block. The prior ST-T abnormality has improved. Assessment/Plan Assessment/Plan Assessment: 1. Possible syncope. No arrhythmias seen on telemetry 2. Hypercalcemia improving 3. Hypokalemia 4. Lung malignancy Plan: * Supplement potassium. * Given the significant hypokalemia, would keep on telemetry for now. * Continue telemetry? Yes
[2016-08-12 17:17] VITALS: BP 132/80
--- NOTE | 2016-08-12 17:56 | Cons- Neurology ---
General Information and HPI Consulting Request Date of Consult: 08/12/16 Requested By: LEEANN HARRISON MD Reason for Consult: Recurrent Syncope Source of Information: patient Exam Limitations: poor historian History of Present Illness: This is a 56 year old man who was brought to the hospital after passing out in an ECF (although he says at home). He relates in a weak voice that he has had a number of such events where he gets out of bed and suddenly passes out without warning. He admits that just prior he feels severe pain. He has a pelvic fracture that he sustained a few weeks ago. He is also known for lung cancer that he elected not to treat. Per the nurse he has been confused while in the hospital. When I see him he is only partially oriented. He denies any significant headaches but admits that he has diffuse deep pain in his limbs. He notes that this occurred even prior to the diagnosis of cancer (diagnosed with Fibromyalgia). Per reports no evidence of convulsions, TB or incontinence during events. Allergies/Medications Allergies: Coded Allergies: clarithromycin (From BIAXIN) (Severe, FACE AND THROAT SWELLING 07/21/16) Home Med List: Albuterol Sulfate (Proventil Hfa) 90 MCG HFA.AER.AD 2 PUFF INH PRN SOB ( Reported) Budesonide/Formoterol Fumarate (Symbicort 160-4.5 Mcg Inhaler) 160 MCG-4.5 MCG/ ACTUATION HFA.AER.AD 2 PUFF INH BID LUNG CA/SOB (Reported) Ceftriaxone Sodium (Ceftriaxone) 1 GRAM VIAL 1 GM IM DAILY ANTIBIOTIC, INFECTION (Reported) Celecoxib (Celebrex) 100 MG CAPSULE 200 MG PO BID pain Docusate Sodium (Colace) 100 MG CAPSULE 1 CAP PO BID CONSTIPATION (Reported) Ergocalciferol (Vitamin D2) (Vitamin D2) 50,000 UNIT CAPSULE 1 CAP PO QMON SUPPLEMENT (Reported) Fentanyl 50 MCG/HOUR PATCH.TD72 1 PAT TOP Q3D PAIN (Reported) Gabapentin 400 MG CAPSULE 400 MG PO Q8 neuropathic pain Hydromorphone HCl (Dilaudid) 4 MG TABLET 1 TAB PO Q4 HRS NEEDED PRN PAIN SCALE 7-10 (SEVERE) (Reported) Ipratropium/Albuterol Sulfate (Iprat-Albut 0.5-3(2.5) MG/3 Ml) 0.5 MG-3 MG (2.5 MG BASE)/3 ML AMPUL.NEB 1 VIAL INH TID BREATHING PROBLEMS (Reported) Lorazepam (Ativan) 0.5 MG TABLET 0.5 TAB PO Q6-PRN PRN TREMORS (Reported) Multivitamin (Daily Multiple Vitamin) 1 EACH TABLET 1 TAB PO DAILY SUPPLEMENT (Reported) Omeprazole 20 MG CAPSULE.DR 20 MG PO DAILY AC GI PPX Oxycodone HCl 15 MG TABLET 1 TAB PO Q8P PRN PAIN (Reported) Polyethylene Glycol 3350 (Miralax) 17 GRAM/DOSE POWDER 17 GM PO DAILY PRN constipation stop for diarrhea Sennosides/Docusate Sodium (Senna S Tablet) 8.6 MG-50 MG TABLET 2 TAB PO QPM CONSTIPATION (Reported) Thiamine HCl 100 MG TABLET 1 TAB PO DAILY SUPPLEMENT (Reported) Current Medications: Current Medications Sig/Bonnie Start time Last Medication Dose Route Stop Time Status Admin Albuterol Sulfate 3 ML TID 08/10 2199 AC 08/12 INH 1345 Budesonide/ 2 PUF BID 08/10 220 AC 08/12 Formoterol Fumarate INH 0926 Celecoxib 200 MG BID 08/10 220 AC 08/12 PO 0922 Dextrose/Sodium 1,000 ML Q10H 08/11 1045 DC 08/12 Chloride IV 0756 Gabapentin 400 MG Q8 08/10 220 AC 08/12 PO 1622 Heparin Sodium 5,000 UNIT Q8 08/10 1746 AC 08/12 (Porcine) SC 1431 Hydromorphone HCl 2 MG ONCE ONE 08/12 1700 DC 08/12 PO 08/12 1701 1715 Ipratropium [place] 2.5 ML TID 08/10 2200 AC 08/12 INH 1345 Lorazepam 0.25 MG Q6-PRN PRN 08/10 1800 AC PO 08/17 1759 Magnesium Sulfate 1 GM ONCE ONE 08/12 09 DC 08/12 Dextrose/Water 100 ML IV 08/12 1259 0926 Omeprazole 20 MG DAILY AC 08/11 0700 AC 08/12 PO 0657 Oxycodone HCl 15 MG Q8P PRN / 1800 AC 08/12 PO 1237 Polyethylene Glycol 17 GM DAILY PRN 08/10 1800 AC PO Potassium Chloride 40 MEQ Q10H 08/12 0900 AC 08/12 Dextrose/Sodium 1,000 ML IV 0924 Chloride Potassium Chloride 10 MEQ Q1H 08/12 0845 DC / IV 08/12 0946 1417 Potassium Chloride 20 MEQ BID 08/12 0845 AC 08/12 PO 08/13 1001 0924 Potassium Chloride 40 MEQ Q10H 08/13 0745 DC Dextrose/Water 1,000 ML IV Senna/Docusate Sodium 2 TAB QPM 08/10 2200 AC 08/11 PO 2121 Thiamine HCl 100 MG DAILY 08/10 1749 AC 08/12 PO 0922 Review of Systems Review of Systems: SOB. Otherwise negative or as per HPI. Past History Travel History Traveled to [place] past 21 day No Medical History Neurological: FIBROMYALGIA EENT: NONE Cardiovascular: hypertension Respiratory: LUNG CA Gastrointestinal: NONE Hepatic: NONE Renal: NONE Musculoskeletal: rheumatoid arthritis Psychiatric: NONE Endocrine: NONE Blood Disorders: NONE Cancer(s): NONE Surgical History Surgical History: multiple orthopedic surgeries Family History Relations & Conditions If Any: SISTER FH: lung cancer MOTHER FH: lung cancer FATHER FH: lung cancer Relation not specified for: FH: lung cancer Psychosocial History Where Do You Live? [facility] Smoking Status: Smoker Current Stat Ukn ETOH Use: occasional use Illicit Drug Use: denies illicit drug use Living Will? Bernadette, Cinthia and Jorge are POAs. Patient does not wish for any resuscitation Functional Ability Ambulation: cane, sometimes uses a cane Exam & Diagnostic Data Vital Signs and I&O Vital Signs Date Time Temp Pulse Resp B/P Pulse O2 O2 Flow FiO2 Ox Delivery Rate 08/12 1717 98.0 120 20 132/80 96 Nasal 2.0L Cannula 08/12 0845 97 Nasal 2.0L Cannula 08/12 824 98.6 96 20 160/90 98 Nasal 1.5L Cannula 08/12 0825 92 Nasal 1.0L Cannula 08/12 0000 Nasal 1.0L Cannula 08/11 2334 98.1 105 18 140/80 97 Nasal 1.0L Cannula 08/11 2020 100 Nasal 2.0L Cannula Intake & Output 08/12 1600 08/12 0800 / 0000 Intake Total 1400 900 100 Output Total Balance 1400 900 100 Intake, IV 1000 800 Intake, Oral 400 100 100 Patient 130 lb Weight Physical Exam: Alert but paritally oriented to time and place. Somewhat confused. S1 and S2 are normal. 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 V1 tp V3 sensation is normal. VF intact. Strength exam limited due to restraints, but moves arms well. Proximal leg weakness that is limited by pain in the pelvis. Downgoing toes. Hyporeflexic. Gait deferred. FNF normal. Last 48 Hours of Lab Results: Laboratory Tests 08/12 08/12 0735 0725 Chemistry Sodium (137 - 145 mmol/L) 142 Potassium (3.5 - 5.1 mmol/L) 2.8 *L Chloride (98 - 107 mmol/L) 111 H Carbon Dioxide (22 - 30 mmol/L) 23 Anion Gap (5 - 16) 8 BUN (9 - 20 mg/dL) 10 Creatinine (0.7 - 1.2 mg/dL) 0.9 Estimated GFR (>60 ml/min) > 60 BUN/Creatinine Ratio (7 - 25 %) 11.1 Calcium (8.4 - 10.2 mg/dL) 10.5 H Magnesium (1.6 - 2.3 mg/dL) 1.7 Albumin (3.5 - 5.0 g/dL) 2.2 L Hematology CBC w Diff NO MAN DIFF REQ WBC (4.8 - 10.8 /CUMM) 8.5 RBC (4.70 - 6.10 /CUMM) 3.57 L Hgb (14.0 - 18.0 G/DL) 8.3 L Hct (42 - 52 %) 26.0 L MCV (80.0 - 94.0 FL) 72.7 L MCH (27.0 - 31.0 PG) 23.1 L RDW (11.5 - 14.5 %) 19.5 H Plt Count (130 - 400 /CUMM) 378 MPV (7.4 - 10.4 FL) 8.6 Gran % (42.2 - 75.2 %) 78.7 H Lymphocytes % (20.5 - 51.1 %) 11.4 L Monocytes % (1.7 - 9.3 %) 6.1 Eosinophils % (0 - 5 %) 3.7 Basophils % (0.0 - 2.0 %) 0.1 Absolute Granulocytes (1.4 - 6.5 /CUMM) 6.7 H Absolute Lymphocytes (1.2 - 3.4 /CUMM) 1.0 L Absolute Monocytes (0.10 - 0.60 /CUMM) 0.5 Absolute Eosinophils (0.0 - 0.7 /CUMM) 0.3 Absolute Basophils (0.0 - 0.2 /CUMM) 0 PUBS MCHC (33.0 - 37.0 G/DL) 31.8 L 03/05 03/ 03/05 0630 0000 0000 Chemistry Sodium (137 - 145 mmol/L) 138 Potassium (3.5 - 5.1 mmol/L) 3.5 Chloride (98 - 107 mmol/L) 108 H Carbon Dioxide (22 - 30 mmol/L) 22 Anion Gap (5 - 16) 8 BUN (9 - 20 mg/dL) 17 Creatinine (0.7 - 1.2 mg/dL) 0.9 Estimated GFR (>60 ml/min) > 60 BUN/Creatinine Ratio (7 - 25 %) 18.9 Calcium (8.4 - 10.2 mg/dL) 12.2 H Cancelled Troponin I Cancelled Hematology CBC w Diff NO MAN DIFF REQ WBC (4.8 - 10.8 /CUMM) 12.8 H RBC (4.70 - 6.10 /CUMM) 3.78 L Hgb (14.0 - 18.0 G/DL) 8.8 L Hct (42 - 52 %) 27.7 L MCV (80.0 - 94.0 FL) 73.2 L MCH (27.0 - 31.0 PG) 23.3 L RDW (11.5 - 14.5 %) 18.7 H Plt Count (130 - 400 /CUMM) 399 MPV (7.4 - 10.4 FL) 9.8 Gran % (42.2 - 75.2 %) 83.2 H Lymphocytes % (20.5 - 51.1 %) 10.3 L Monocytes % (1.7 - 9.3 %) 6.1 Eosinophils % (0 - 5 %) 0.3 Basophils % (0.0 - 2.0 %) 0.1 Absolute Granulocytes (1.4 - 6.5 /CUMM) 10.7 H Absolute Lymphocytes (1.2 - 3.4 /CUMM) 1.3 Absolute Monocytes (0.10 - 0.60 /CUMM) 0.8 H Absolute Eosinophils (0.0 - 0.7 /CUMM) 0 Absolute Basophils (0.0 - 0.2 /CUMM) 0 PUBS MCHC (33.0 - 37.0 G/DL) 31.8 L 08/10 Chemistry Calcium (8.4 - 10.2 mg/dL) Cancelled 12.8 H Troponin I (<0.11 ng/ml) < 0.01 Imaging/Other Studies: CT HEAD: There is no evidence of acute intracranial hemorrhage or territorial infarction. No abnormal mass effect or midline shift is seen. Frank to white matter differentiation is well preserved. No extra-axial fluid collections are identified. The ventricles are normal in size. There is no abnormal attenuation within the brain parenchyma. The osseous structures and soft tissues are normal. The mastoid air cells and visualized portions of the paranasal sinuses are well aerated. CT CERVICAL SPINE: There is normal vertebral body height and alignment of cervical spine. The intervertebral disc spaces are preserved. The posterior elements are intact. Again noted bulky marginal osteophyte formation at C2-C3 and right-sided facet arthropathy at C3-C4, C4-C5 and C5-C6 level. There is no acute fracture or dislocation of cervical spine. The paraspinal soft tissue is unremarkable. There is partial visualization of postsurgical changes of the right clavicle with metallic plate and screws. There is partial visualization of the pulmonary opacity in the left upper lobe. IMPRESSION: 1. No acute intracranial hemorrhage or skull fracture. 2. No acute cervical spine fracture or dislocation. 3. Partial visualization of left upper lobe consolidation. Assessment/Plan Assessment: 56 year old man with untreated lung cancer with recurrent syncope (one in the hospital) in the setting of severe pelvic pain. Events seem to be triggered by positional changes. The differential includes orthostatic hypotension leading to syncope, vasovagal due to severe pain, or seizures. One concern with his current hypophonia is Leptomeningeal Carcinomatosis (LMC) spread and seeding. Recommendations: 1. EEG 2. MRI brain with contrast to exclude LMC (find out when metal was inserted in shoulder and source may be non-feromagnetic). 3. Orthostatic vital signs by nurse tid. 4. Check telemetry to see if wa bradycardic during syncope in hospital. 5. Monitor telemetry. 6. Consider tap for cells and flow cytometry to assess for LMC. Consult Acknowledgment - Thank you for your consult request.
--- NOTE | 2016-08-12 21:36 | ELECTROENCEPHALOGRAM REPORT ---
Electroencephalogram Report Electroencephalogram Results Date of service: 08/12/16 Attending MD: LEEANN HARRISON MD Bench Machine Operator: Ana EEG Number: [id number] Test Utilizes: 10-20 system, 21 lead 18 channel digital recording Pertinent Hx/Physical/Neuro Findings/Clin Diagnosis: 56 year old with recurrent syncope. Inpatient Medications: Current Medications Sig/Bonnie Start time Last Medication Dose Route Stop Time Status Admin Albuterol Sulfate 3 ML TID 08/10 220 AC 08/12 INH 1905 Budesonide/ 2 PUF BID 08/10 220 AC 08/12 Formoterol Fumarate INH 2058 Celecoxib 200 MG BID 08/10 220 AC 08/12 PO 205 Dextrose/Sodium 1,000 ML Q10H 08/11 1045 DC 08/12 Chloride IV 0756 Gabapentin 400 MG Q8 08/10 2199 AC 08/12 PO 2057 Heparin Sodium 5,000 UNIT Q8 08/10 174 AC 08/12 (Porcine) SC 205 Hydromorphone HCl 2 MG ONCE ONE 08/12 1700 DC 08/12 PO 08/12 1701 1715 Ipratropium [place] 2.5 ML TID 08/10 220 AC 08/12 INH 1905 Lorazepam 0.25 MG Q6-PRN PRN 08/10 1800 AC PO 08/17 1759 Magnesium Sulfate 1 GM ONCE ONE 08/12 0900 DC 08/12 Dextrose/Water 100 ML IV 08/12 1259 0926 Omeprazole 20 MG DAILY AC 08/11 0700 AC 08/12 PO 0657 Oxycodone HCl 15 MG Q8P PRN / 1800 AC 08/12 PO 205 Polyethylene Glycol 17 GM DAILY PRN / 1800 AC PO Potassium Chloride 40 MEQ Q10H / 0900 AC 08/12 Dextrose/Sodium 1,000 ML IV 1853 Chloride Potassium Chloride 10 MEQ Q1H 08/12 0845 DC 03/06 IV / 0946 1417 Potassium Chloride 20 MEQ BID 08/12 0845 AC / PO 08/13 1001 2056 Potassium Chloride 40 MEQ Q10H / 0845 DC Dextrose/Water 1,000 ML IV Senna/Docusate Sodium 2 TAB QPM 08/10 2200 AC 08/12 PO 205 Thiamine HCl 100 MG DAILY 08/10 1749 AC 08/12 PO 0922 Interpretation: The recording demonstrates generalized background slowing to delta rhythms. The patient was sleeping throughout most of the study and so there is not reflection of the awake state. However, there was no focal slowing identified and no paroxysmal features. No shaprs or spikes. The posterior dominant rhythm could not be determined. Impression: Potentially an abnormal EEG due to very slow delta waves that are felt to be slower then expected for drowsiness or the early stages of sleep. However, without the awake state it is hard to draw definitive conclusions. Likely encephalopathy without any suggestion of any epileptiform activity.
[2016-08-12 22:00] VITALS: BP 116/80
[2016-08-13 01:11] VITALS: BP 116/80
[2016-08-13 06:04] VITALS: BP 140/88
--- NOTE | 2016-08-13 06:45 | PN- Housestaff ---
TAMI MENDEZ MD 08/13/16 0644: Subjective Follow-up For: hypercalcemia hypokalemia Tele-Events Since Last Visit: ST 103-126 Subjective: Pt seen and examined this morning, he was alert, calm, although still not oriented to person or place, oriented to time. His mentation is the best that we have seen him since admission, he was able to answer questions appropriately (to the best of his knowledge), and this seems to be his baseline (as per our conversation with the facility where he came from). He is coherent today, in good spirits, and very talkative and pleasant. He was diagnosed with lung cancer 10 months ago and refused biopsy and treatment based on what his dad had gone through. He is capable of making his own decisions, and at this time, his mentation is clear and he is showing ability to comprehend his current medical state and his options. Neurology recommended MRI and LP, however he had rods placed in his right shoulder [address] Good at [facility]. We will try to obtain records. He also had rods placed in his right hip. He is currently adament about not doing MRI as he has been told since the surgery to never get an MRI. Also, if indeed MRI shows brain mets , he still does not want to treat the primary lung cancer. I have also discussed with him about the LP, and if it is going to be of any use moving forward. He will think about it. He also agreed to talk to hospice. He was still in BL UE restraints due to fall and pulling out IV. He reports that he gets angry when he is not attended to in time. He also has not been wanting to eat because he feels that the food is being shoved into his mouth. We will get PT to work with him. He has chronic pain all over, including mild chest discomfort, reportedly "where my cancer is". His pain is 1000/10, although he appears to being lying comfortably in bed. He is requesting pain meds at around 2pm and 4pm, although he knows that pain meds is making him confused. Review of Systems Constitutional: Denies: chills, fever. EENTM: Denies: visual changes. Cardiovascular: Reports: chest pain. Respiratory: Denies: cough, short of breath. Gastrointestinal: Denies: abdominal pain. Objective Last 24 Hrs of Vital Signs/I&O Vital Signs Date Time Temp Pulse Resp B/P Pulse O2 O2 Flow FiO2 Ox Delivery Rate 08/13 0604 98 140/88 08/13 0111 97.9 117 20 116/80 96 Nasal 2.0L Cannula 08/13 0000 96 Nasal 1.0L Cannula 08/12 2200 117 116/80 / 1905 95 Nasal 1.0L Cannula 08/12 1717 98.0 120 20 132/80 96 Nasal 2.0L Cannula 08/12 1600 Nasal 1.0L Cannula 08/12 0845 97 Nasal 2.0L Cannula 08/12 0825 98.6 96 20 160/90 98 Nasal 1.5L Cannula 08/12 0825 92 Nasal 1.0L Cannula Intake & Output 08/13 1600 08/13 0800 08/13 0000 Intake Total 680 1280 Output Total 600 Balance 680 680 Intake, IV 800 Intake, Oral 680 480 Number 2 Bowel Movements Output, Urine 600 Physical Exam General Appearance: Alert, Cooperative, No Acute Distress Skin: No Significant Lesion HEENT: Atraumatic Cardiovascular: Regular Rate, Normal S1, Normal S2, No Murmurs, Gallops, Rubs Lungs: Clear to Auscultation, Normal Air Movement Abdomen: Normal Bowel Sounds, Soft, No Tenderness Neurological: Normal Speech Extremities: No Edema Current Medications: Current Medications Sig/Bonnie Start time Last Medication Dose Route Stop Time Status Admin Albuterol Sulfate 3 ML TID 08/10 2199 AC 08/12 INH 1905 Budesonide/ 2 PUF BID 08/10 2199 AC 08/12 Formoterol Fumarate INH 2058 Celecoxib 200 MG BID 08/10 2199 AC 08/12 PO 205 Dextrose/Sodium 1,000 ML Q10H 08/11 1045 DC 08/12 Chloride IV 0756 Gabapentin 400 MG Q8 08/10 220 AC 08/13 PO 0540 Heparin Sodium 5,000 UNIT Q8 08/10 1746 AC 08/12 (Porcine) SC 2056 Hydromorphone HCl 2 MG ONCE ONE 08/12 1700 DC / PO 08/12 1701 1715 Ipratropium [place] 2.5 ML TID 08/10 220 AC 08/12 INH 1905 Lorazepam 0.25 MG Q6-PRN PRN 08/10 1800 AC PO 08/17 1759 Magnesium Sulfate 1 GM ONCE ONE 08/12 899 DC 08/12 Dextrose/Water 100 ML IV 08/12 1259 0926 Omeprazole 20 MG DAILY AC 08/11 0700 AC 08/13 PO 0540 Oxycodone HCl 15 MG Q8P PRN 08/10 1800 AC 08/13 PO 0540 Polyethylene Glycol 17 GM DAILY PRN 08/10 1800 AC PO Potassium Chloride 40 MEQ Q10H 08/12 0900 AC 08/13 Dextrose/Sodium 1,000 ML IV 0457 Chloride Potassium Chloride 10 MEQ Q1H 08/12 0845 DC 08/12 IV 08/12 0946 1417 Potassium Chloride 20 MEQ BID 08/12 0845 AC 08/12 PO 08/13 1001 2056 Potassium Chloride 40 MEQ Q10H 08/12 0845 DC Dextrose/Water 1,000 ML IV Senna/Docusate Sodium 2 TAB QPM 08/10 2200 AC 08/12 PO 205 Thiamine HCl 100 MG DAILY 08/10 1749 AC 08/12 PO 0922 Last 24 Hrs of Lab/Eclestine Results Last 24 Hrs of Labs/Mics: Laboratory Tests 08/12/16 1745: Anion Gap 9, Estimated GFR > 60, BUN/Creatinine Ratio 11.3, Calcium 9.6, Magnesium 1.8 Assessment/Plan Assessment: 56-year-old male with PMH of lung cancer (refused biopsy and tx), sacral fracture, was brought from [place] for unwitnessed syncope/fall with altered mental status. His calcium was found to be elevated at 13.2 (with albumin of 2.7 ), with elevated alk phos of 281. Patient admitted to telemetry with the following problems addressed: Problem list: # Hypercalcemia most likely due to malignancy (lung cancer) with syncope/fall/ seizure and AMS (improved) # Hypokalemia (improved) # Hypermagnesiumia # Chronic anemia (baseline 9.7/30.5), dropping h/h # Leukocytosis # Hypercalcemia most likely due to malignancy (lung cancer), with seizure/ syncope/fall? and AMS - EKG showed flip T waves on V2 and V3, ST depression on V3. - Corrected calcium on admission was 14.3. PTH low at 7.5, Vit D level 25-oh 37.9 - He was diagnosed with lung cancer 10 months ago by his PCP and refused biopsy and treatment based on what his dad had gone through. He is capable of making his own decisions, and at this time, his mentation is clear and he is showing ability to comprehend his current medical state and his options. He also agreed to talk to hospice. * IV hydration 75ml/hr D51/2NS +40meq KCl , due to poor po intake * Endo consult appreciated, follow recs * S/P pamidronate 60 mg. Must follow up calcium level for next week to make sure he is not hypocalcemic. Give calcium supplements as needed * Follow up 1,25VitD * Consider pth-rp * Stop Vit D supplement for now * Consider heme/onc however pt refused biopsy and treatment for lung cancer * Consult hospice and psych (for capacity to make his own decisions). manager car, Tod, notified * He probably needs pamidronate every 2-3 weeks for symptomatic relief of hypercalcemia even if goes to hospice # AMS (improved) - Prolactin 9.5 - EEG: Potentially an abnormal EEG due to very slow delta waves that are felt to be slower then expected for drowsiness or the early stages of sleep. However, without the awake state it is hard to draw definitive conclusions. Likely encephalopathy without any suggestion of any epileptiform activity. - Neurology recommended MRI and LP, however he had rods placed in his right shoulder 16-[address] Good at [facility]. We will try to obtain records. He also had rods placed in his right hip. He is currently adament about not doing MRI as he has been told since the surgery to never get an MRI. Also, if indeed MRI shows brain mets, he still does not want to treat the primary lung cancer. I have also discussed with him about the LP, and if it is going to be of any use moving forward. He will think about it. * Duralgesic patch discontinued due to concerns of AMS. * Pain control with oxycodone 15q8 and dilaudid 2mg q8 * Neuro consult placed, f/u recs * BL UE restraints discontinued * PT, ambulate to chair # Possible syncope - Echo: Normal size left ventricle. No obvious regional wall motion abnormalities. Normal left ventricular ejection fraction estimated at 60-65%. * Serial EKG and trop negative x 2 * Cardio consult appreciated (Dr. Sarmiento) * Orthostats tid * discontinue tele monitoring # Hypermagnesiumia - Mag 2.5 on admission * 3/6 mag down from 2.5 to 1.7, repleted with 1 X IV mag, improved to 1.8. * 08/13: mag 1.5, repleted 1 X mag ox * Follow mg level, replete as needed # Hypokalemia * 08/12: K down from 3.5 to 2.8. Repleted with 2X10 KCL IV, 4 doses of 20meq klor, 40meq kcl with D51/2NS, improved to 3.5 in PM. * 08/13: K 4.5, changed IVF to D5NS at 50 ml/hr # Hypophosphatemia * 08/13: Phos 1.8, repleted with neutrophosx2 # Chronic anemia (baseline 9.7/30.5), dropping h/h * Monitor h/h. * Guaiac all stools # Leukocytosis (resolved) - WBC 12.8, down to 8.5 Diet: Regular diet DVT ppx:mech and pharm DNR/DNI Problem List: 1. Hypercalcemia 2. Altered mental status Pain Ratin Pain Location: everywhere (cancer pain) Pain Goal: Pain 7 or less Pain Plan: roxicodone dilaudid Tomorrow's Labs & Rationales: bep for hypokalemia, mag for hypomag, calcium and albumin for hypercalcemia , cbc for dropping h/h DVT/Prophylaxis: mechanical, pharmacological EMMA FOSTER MD 08/13/16 1058: Attending MD Review Statement Attending Statement Attending MD Statement: examined this patient, discuss w/resident/PA/ELECTRICAL INSTALLATION SUPERVISOR, agreed w/resident/PA/ELECTRICAL INSTALLATION SUPERVISOR, reviewed EMR data (avail) Attending Assessment/Plan: Mental status is significantly improved today. Calcium is still high-normal. Will have goals of care discussion and hospice evaluation. May require outpatient Pamidronate infusion to maintain normal calcium levels indefinitely. Continue current management.
[2016-08-13 08:51] VITALS: BP 130/80
--- NOTE | 2016-08-13 09:07 | PN- Endocrinology ---
Assessment/Plan Assessment: 56-year-old male with past medical history significant for fibromyalgia, hypertension, recent admission to [facility] for sacral fracture after fall which could be related underlying bony lesion. He has hx of lung cancer and has refused diagnostic procedures and treatment. Today patient presented to the hospital with lethargy and confusion. In ER, his calcium was 13.2, Cr 1.0, Mg 2.5, PHOS 3.7, albumin 2.7 and AKP 282 ( corrected calcium 14.3). His PTH was only 7.5. His hypercalcemia probably is related to underlying maligancy He had EKG changes and troponin has been negative. He received pamidronate 60 mg iv on 08/10/2016. calcium was 12.2 on 08/11/2016. Repeat calcium was down to 9.6 on 08/12/2016. He feels better and has been eating his meals. Plan: At this point, his hypercalcemia resolved. However, his calcium level probably will be elevated again in 2-3 weeks. I have discussed with patient and encouraged him to consider the further evaluation and possible treatment for lung cancer. I will recommend monitoring calcium and albumin level tomorrow. will follow. Subjective Subjective: He feels better. Objective Last 24 Hrs of Vital Signs/I&O Vital Signs Date Time Temp Pulse Resp B/P Pulse O2 O2 Flow FiO2 Ox Delivery Rate 08/13 0858 94 Room Air Room Air 08/13 0851 97.8 102 22 130/80 95 08/13 0800 94 Room Air 08/13 0604 98 140/88 08/13 0111 97.9 117 20 116/80 96 Nasal 2.0L Cannula 08/13 0000 96 Nasal 1.0L Cannula 08/12 2200 117 116/80 08/12 1905 95 Nasal 1.0L Cannula 08/12 1717 98.0 120 20 132/80 96 Nasal 2.0L Cannula 08/12 1600 Nasal 1.0L Cannula Intake & Output 08/13 1600 08/13 0800 08/13 0000 Intake Total 680 1280 Output Total 600 Balance 680 680 Intake, IV 800 Intake, Oral 680 480 Number 2 Bowel Movements Output, Urine 600 Results Pertinent Lab/Celestine Results: Laboratory Tests 08/12 1745 Chemistry Sodium (137 - 145 mmol/L) 141 Potassium (3.5 - 5.1 mmol/L) 3.5 Chloride (98 - 107 mmol/L) 110 H Carbon Dioxide (22 - 30 mmol/L) 22 Anion Gap (5 - 16) 9 BUN (9 - 20 mg/dL) 9 Creatinine (0.7 - 1.2 mg/dL) 0.8 Estimated GFR (>60 ml/min) > 60 BUN/Creatinine Ratio (7 - 25 %) 11.3 Calcium (8.4 - 10.2 mg/dL) 9.6 Magnesium (1.6 - 2.3 mg/dL) 1.8
[2016-08-13 11:14] LABS: ABSOLUTE BASOPHIL COUNT 0 /CUMM (0.0-0.2); ABSOLUTE EOSINOPHIL COUNT 0.4 /CUMM (0.0-0.7); ABSOLUTE GRANULOCYTE CT 7.1 /CUMM (1.4-6.5); ABSOLUTE LYMPH COUNT 1.9 /CUMM (1.2-3.4); ABSOLUTE MONOCYTE COUNT 0.7 /CUMM (0.10-0.60); BASOPHIL % 0.4 % (0.0-2.0); EOSINOPHIL % 4.3 % (0-5); GRANULOCYTE % 69.7 % (42.2-75.2); HEMATOCRIT 24.8 % (42-52); MEAN CORPUSCULAR HGB 22.8 PG (27.0-31.0); MEAN CORPUSCULAR HGB CONC 31.4 G/DL (33.0-37.0); MEAN CORPUSCULAR VOLUME 72.5 FL (80.0-94.0); MEAN PLATELET VOLUME 8.9 FL (7.4-10.4); PLATELET COUNT 345 /CUMM (130-400); RBC DISTRIBUTION WIDTH 18.7 % (11.5-14.5); RED BLOOD CELL CT 3.42 /CUMM (4.70-6.10); WHITE BLOOD CELL COUNT 10.2 /CUMM (4.8-10.8)
--- NOTE | 2016-08-13 11:15 | NUR ---
Physical Therapy. PT consult received and chart reviewed. Pt is from an ECF, martir bedhold to return w/ hospice evaluation pending for today. Pt not appropriate for skilled PT at this time, please re-consult if status changes.
--- NOTE | 2016-08-13 13:31 | PN- Cardiology ---
Subjective Subjective: The patient is comfortable. No current complaints. No palpitations. No chest pain. No shortness of breath. No diaphoresis. Objective Vital Signs and I&Os Vital Signs Date Time Temp Pulse Resp B/P Pulse O2 O2 Flow FiO2 Ox Delivery Rate 08/13 0858 94 Room Air Room Air 08/13 0851 97.8 102 22 130/80 95 08/13 0800 94 Room Air 08/13 0604 98 140/88 08/13 0111 97.9 117 20 116/80 96 Nasal 2.0L Cannula 08/13 0000 96 Nasal 1.0L Cannula 08/12 2200 117 116/80 08/12 1905 95 Nasal 1.0L Cannula 08/12 1717 98.0 120 20 132/80 96 Nasal 2.0L Cannula 08/12 1600 Nasal 1.0L Cannula Intake & Output 08/13 1600 08/13 0800 / 0000 08/12 1600 08/12 0800 08/12 0000 Intake Total 680 1280 1400 900 100 Output Total 600 Balance 104 483 2978 900 100 Intake, IV 800 1000 800 Intake, Oral 680 480 400 100 100 Number 2 Bowel Movements Output, Urine 600 Patient 130 lb Weight Physical Exam: Gen: NAD HEENT: normal Lungs: clear to auscultation, normal resp. effort Heart: RRR, S1, S2, 1/6 systolic murmur Abdomen: Soft, nontender, no masses Extremities: No clubbing, cyanosis, or edema. Neuro: Alert and oriented x 3, cranial nerves intact Current Medications: Current Medications Sig/Bonnie Start time Last Medication Dose Route Stop Time Status Admin Albuterol Sulfate 3 ML TID 08/10 2199 AC 08/13 INH 1317 Budesonide/ 2 PUF BID 08/10 2199 AC 08/13 Formoterol Fumarate INH 0925 Celecoxib 200 MG BID 08/10 2199 AC 08/13 PO 0924 Dextrose/Sodium 1,000 ML Q20H 08/13 1245 AC 08/13 Chloride IV 1248 Gabapentin 400 MG Q8 08/10 2199 AC 08/13 PO 0540 Heparin Sodium 5,000 UNIT Q8 08/10 1746 AC 08/12 (Porcine) SC 2057 Hydromorphone HCl 2 MG Q8P PRN 08/13 0830 AC 08/13 PO 1214 Hydromorphone HCl 2 MG ONCE ONE 08/12 1700 DC 08/12 PO 08/12 1701 1715 Ipratropium [place] 2.5 ML TID 08/10 2200 AC 08/13 INH 1317 Lorazepam 0.25 MG Q6-PRN PRN 08/10 1800 AC PO 08/17 1759 Magnesium Oxide 400 MG ONE ONE 08/13 1245 DC PO 08/13 1246 Omeprazole 20 MG DAILY AC 08/11 0700 AC 08/13 PO 0540 Oxycodone HCl 15 MG Q8P PRN 08/10 1800 AC 08/13 PO 0540 Phosphate 250 MG PC AND AT BEDTIME 08/13 1300 AC PO 08/13 1801 Polyethylene Glycol 17 GM DAILY PRN 08/10 1800 AC PO Potassium Chloride 40 MEQ Q10H 08/12 0900 DC 08/13 Dextrose/Sodium 1,000 ML IV 0457 Chloride Potassium Chloride 20 MEQ BID 08/12 0845 DC 08/13 PO 08/13 1001 0924 Senna/Docusate Sodium 2 TAB QPM 08/10 2200 AC 08/12 PO 2058 Thiamine HCl 100 MG DAILY 08/10 1749 AC 08/13 PO 0924 Results Last 48 Hrs of Labs/Mics: Laboratory Tests 08/13/16 1014: Anion Gap 8, Estimated GFR > 60, BUN/Creatinine Ratio 10.0, Calcium 8.8, Phosphorus 1.8 L, Magnesium 1.5 L, Albumin 2.2 L, CBC w Diff NO MAN DIFF REQ, RBC 3.42 L, MCV 72.5 L, MCH 22.8 L, RDW 18.7 H, MPV 8.9, Gran % 69.7, Lymphocytes % 19.0 L, Monocytes % 6.6, Eosinophils % 4.3, Basophils % 0.4, Absolute Granulocytes 7.1 H, Absolute Lymphocytes 1.9, Absolute Monocytes 0.7 H, Absolute Eosinophils 0.4, Absolute Basophils 0, PUBS MCHC 31.4 L 08/12/16 1745: Anion Gap 9, Estimated GFR > 60, BUN/Creatinine Ratio 11.3, Calcium 9.6, Magnesium 1.8 08/12/16 0735: CBC w Diff NO MAN DIFF REQ, RBC 3.57 L, MCV 72.7 L, MCH 23.1 L, RDW 19.5 H, MPV 8.6, Gran % 78.7 H, Lymphocytes % 11.4 L, Monocytes % 6.1, Eosinophils % 3.7, Basophils % 0.1, Absolute Granulocytes 6.7 H, Absolute Lymphocytes 1.0 L, Absolute Monocytes 0.5, Absolute Eosinophils 0.3, Absolute Basophils 0, PUBS MCHC 31.8 L 08/12/16 0725: Anion Gap 8, Estimated GFR > 60, BUN/Creatinine Ratio 11.1, Calcium 10.5 H, Magnesium 1.7, Albumin 2.2 L Assessment/Plan Assessment/Plan Assessment: 1. Possible syncope. No arrhythmias seen on telemetry 2. Hypercalcemia improving 3. Hypokalemia improved 4. Lung malignancy 5. Hypomagnesemia Plan: * Supplement magnesium. * Cardiac status stable. * OK to discontinue telemetry. Continue telemetry? No
--- NOTE | 2016-08-13 15:21 | Cons- Psychiatry ---
Psychiatric Consult Date of Consult: 08/13/16 Reason for Consult: "has lung cancer, probably with mets, refuse tx, hospice?" History of Present Illness: Identifying Info: 56-year-old male brought to [facility] emergency department on 08/10/2016 from [place] with altered mental status. He was subsequently diagnosed with hypercalcemia likely due to lung cancer and probable syncope, Hypermagnesiumia, hypokalemia, and hypophosphatemia and was admitted to medicine. CC: "I know I don't have much time but it is what it is. I just don't want to put my family through it." HPI: The patient was initially altered on presentation but his mentation has reported to have improved today. Patient has a history of lung cancer and has refused biopsy and treatment. He reports that over the past 20 years he has had 39 family members of cancer including his sister, mother and father. He has made his cousins his healthcare POA's and has made arrangements at a home. Spoke to his cousin who is at bedside at end of interview who reports the patient's cognition is at his baseline and he feels that he got increasingly confused at rehabilitation when he was given dilaudid. He also states he feels that the patient has made his wishes clear and that he feels it is the best decisions for him at this time. PMH: Please see the H&P for a complete listing lung cancer, sacral fracture Past Psych History: Denies Family Psych History: Denies Substance History Denies treatment States he smokes 1/2-2 packs a day and when out of the hospital and symptoms approximately 3 750 mL bottle of Suresh Ar's a week. Family Substance History: ETOH Dad Social: . Retired. Pt is DNR/DNI. Cousins, Cinthia and Jorge are POAs. Abuse/Trauma: Noncontributory Current Home Psychotropic Medications: None Current Hospital Psychotropic Medications: Med Lorazepam 0.25 MG PO Q6-PRN PRN 08/10/16 1800 Allergies: Coded Allergies: clarithromycin (From BIAXIN) (Severe, FACE AND THROAT SWELLING 07/21/16) Current Medications: Med Albuterol Sulfate 3 ML INH TID 08/10/16 2200 Budesonide/Formoterol Fumarate 2 PUF INH BID 08/10/16 2200 Celecoxib 200 MG PO BID 08/10/16 2200 Dextrose/Sodium Chloride 1,000 ML IV Q20H 08/13/16 1245 Gabapentin 400 MG PO Q8 08/10/16 2200 Heparin Sodium (Porcine) 5,000 UNIT SC Q8 08/10/16 1746 Hydromorphone HCl 2 MG PO Q8P PRN 08/13/16 0830 Ipratropium Callaway 2.5 ML INH TID 08/10/16 2200 Lorazepam 0.25 MG PO Q6-PRN PRN 08/10/16 1800 Omeprazole 20 MG PO DAILY AC 08/11/16 0700 Oxycodone HCl 15 MG PO Q8P PRN 08/10/16 1800 Phosphate 250 MG PO PC AND AT BEDTIME 08/13/16 1300 Polyethylene Glycol 17 GM PO DAILY PRN 08/10/16 1800 Senna/Docusate Sodium 2 TAB PO QPM 08/10/16 2200 Thiamine HCl 100 MG PO DAILY 08/10/16 1749 Past History Past Medical History Neurological: FIBROMYALGIA EENT: NONE Cardiovascular: hypertension Respiratory: LUNG CA Gastrointestinal: NONE Hepatic: NONE Renal: NONE Musculoskeletal: rheumatoid arthritis Psychiatric: NONE Endocrine: NONE Blood Disorders: NONE Cancer(s): NONE Past Surgical History Surgical History: multiple orthopedic surgeries Psychosocial History Strengths/Capabilities: Strong family supports Physical Limitations (Interventions): Chronic medical illness Psychiatric Treatment History Psych Treatment Psychiatric Treatment No Diagnosis: Denies prior dx Risk Factors: access to lethal means, chronic/serious med cond., weapons access, lives alone, male Substance Use/Abuse History Drug Use/Abuse Substances Used/Abused Yes (As above) Substance Abuse Treatment Substance Abuse Treatment Past Substance Abuse [place] No Assessment/Plan Mental Status Orientation: Current situation, Person, Place Affect: Broad, WNL Speech: WNL Neuro-vegetative: WNL Mental Status Exam: Mental Status Exam Presentation/Appearance: Cooperative with evaluation. Hospital garb. Lying in bed Orientation: Oriented to self, situation, and place, able to name year and season but not day or date Sensorium: Awake and alert Eye contact: Appropriate Affect: Broad and congruent with stated mood Mood: "Very good" Depression: Denies Anxiety: Denies Thought Content: - Denies SI/HI, AH/VH, PI. States and also believes they will not kill themselves. - Denies Hopeless/Helpless Thoughts Thought Process: Linear and goal directed Speech: Normal tone and rate Judgment: Intact Insight: Intact Cognition: Memory: Short-term deficits, unable to name 3 objects at 1 minute, has difficulty word finding especially names. He cannot recall his dog's name but can recall his breathe and describe him physically. Attention/Concentration: Grossly intact attends well to interview MMSE: 22/28 Brief ROS Gait: Impaired Sleep: Reports adequate Appetite: Adequate Energy: Low IADLs/ADLs: Needs assisstance Capacity assessment Patient shows the ability to communicate a choice about treatment, understand relevant information, reason about treatment options, and appreciate the situation and its consequences. He is able to verbalize risks and benefits of treatment versus no treatment "I may live a little longer but I am going to anyways." "Right now my quality of life sucks as it is I don't want to make it any worse... I know I just don't have too much time." "I don't want my family to have to take care of me and see me like that." Verbalizes that he understands he will likely much sooner if he does not receive treatment for his cancer. Lab Results: Laboratory Tests 08/13/16 1014: Anion Gap 8, Estimated GFR > 60, BUN/Creatinine Ratio 10.0, Calcium 8.8, Phosphorus 1.8 L, Magnesium 1.5 L, Albumin 2.2 L, CBC w Diff NO MAN DIFF REQ, RBC 3.42 L, MCV 72.5 L, MCH 22.8 L, RDW 18.7 H, MPV 8.9, Gran % 69.7, Lymphocytes % 19.0 L, Monocytes % 6.6, Eosinophils % 4.3, Basophils % 0.4, Absolute Granulocytes 7.1 H, Absolute Lymphocytes 1.9, Absolute Monocytes 0.7 H, Absolute Eosinophils 0.4, Absolute Basophils 0, PUBS MCHC 31.4 L 08/12/16 1745: Anion Gap 9, Estimated GFR > 60, BUN/Creatinine Ratio 11.3, Calcium 9.6, Magnesium 1.8 08/12/16 0735: CBC w Diff NO MAN DIFF REQ, RBC 3.57 L, MCV 72.7 L, MCH 23.1 L, RDW 19.5 H, MPV 8.6, Gran % 78.7 H, Lymphocytes % 11.4 L, Monocytes % 6.1, Eosinophils % 3.7, Basophils % 0.1, Absolute Granulocytes 6.7 H, Absolute Lymphocytes 1.0 L, Absolute Monocytes 0.5, Absolute Eosinophils 0.3, Absolute Basophils 0, PUBS MCHC 31.8 L 08/12/16 0725: Anion Gap 8, Estimated GFR > 60, BUN/Creatinine Ratio 11.1, Calcium 10.5 H, Magnesium 1.7, Albumin 2.2 L 08/11/16 0630: Anion Gap 8, Estimated GFR > 60, BUN/Creatinine Ratio 18.9, Calcium 12.2 H, CBC w Diff NO MAN DIFF REQ, RBC 3.78 L, MCV 73.2 L, MCH 23.3 L, RDW 18.7 H, MPV 9.8, Gran % 83.2 H, Lymphocytes % 10.3 L, Monocytes % 6.1, Eosinophils % 0.3, Basophils % 0.1, Absolute Granulocytes 10.7 H, Absolute Lymphocytes 1.3, Absolute Monocytes 0.8 H, Absolute Eosinophils 0, Absolute Basophils 0, PUBS MCHC 31.8 L 08/11/16 0000: Troponin I Cancelled 08/11/16 0000: Calcium Cancelled 08/10/16 2000: Calcium Cancelled 08/10/16 1846: Calcium 12.8 H, Troponin I < 0.01 Diffential Diagnosis: Delirium related to electrolyte abnormalities and medication, now resolving Rule out phase of life problem Impression: At present patient is able to satisfy the 4 elements of healthcare decision- making capacity. Additionally he has two healthcare POAs in place who are supportive of his plan. He does display some cognitive deficits including word finding difficulty, short-term memory issues, and difficulty remembering the date. His word finding difficulty and short-term memory issues are reported to be chronic and the patient attributes his issues with date to hospitalization and recent confusion. His Mini-Mental status exam indicates mild cognitive impairment. Provisional Treatment Plan: 1. Please continue to avoid benzodiazepines, opioid analgesics, and meds with strong anticholinergic properties as much as possible to prevent further confusion. 2. Please initiate the following nonpharmacologic interventions: -Avoid nursing and medical procedures during sleep hours whenever possible - Cluster at night interventions that must be completed as much as possible to minimize sleep disruption - Decrease noise patient area during sleeping hours - Reduce lighting at night - Ensure patient has any sensory aids close by that he regularly uses 3. Consider melatonin or Rozerem if patient has difficulty with circadian rhythm dysregulation 4. The patient displays healthcare decision-making capacity if he becomes altered please contact his health care power of regulatory attorney for healthcare decision and default to his living will. Please contact legal department for any questions. 5. Recommend palliative care evaluation. Thank you for including psychiatry in this case we will continue to follow on an as-needed basis. Juan Pablo Lance, TAMI, Pager [phone].
[2016-08-13 15:30] VITALS: BP 118/78
[2016-08-14 00:41] VITALS: BP 118/80
--- NOTE | 2016-08-14 06:43 | PN- Housestaff ---
VANESSA HE,TAMI 08/14/16 0642: Subjective Follow-up For: hypercalcemia Subjective: I saw the patient this morning, he was alert and in good spirits, lying comfortably on the bed watching tv. His K is 4.2 today, mag still 1.5, given another 1X mag ox, phos up from 1.8 to 3.2. Hg around 7.9, would hold off transfusion for now, even though pt consents to transfusion as needed. Calcium still trending down (8.2 with alb 2.2 , so corrected around 9.3). One of his POA, his cousin, was upset yesterday because we did not consult her regarding hospice consult. Both myself and correctional casework specialist, Tod, spoke to him regarding his perception of his ability to make sound decisions, and he thinks he should be able to make his decision himself as he is able to think clearly now and this is consistent with his previous wishes (no tx for lung cancer). He does not feel that it is necessary for us to get his POAs involved in hospice talk, and patient said "if callum has questions, she can come ask me". Psych has assessed him and thinks that he has capacity to make sound decisions regarding his care. His cousin (male, also his POA) was also at bedside when psych evaluated and he thinks that the patient is currently at his baseline mental state and is capable of making his own decisions. Agree with hospice evaluation. His IV is supposed to be replaced today, but he refused it to the nurse, unless we give him more pain meds. This morning, his pain was 11/10 (yesterday was 1000/10). He was conversing well with us, and in no distress. Ana from hospice will speak to him today. Review of Systems Constitutional: Reports: see HPI. Objective Last 24 Hrs of Vital Signs/I&O Vital Signs Date Time Temp Pulse Resp B/P Pulse O2 O2 Flow FiO2 Ox Delivery Rate 08/14 0920 97 Room Air 08/14 08 98.2 109 20 116/60 96 08/14 0041 98.8 113 20 118/80 94 08/13 1855 94 Room Air 08/13 1530 99.4 119 18 118/78 94 Room Air Intake & Output 08/14 1600 08/14 0808/14 0000 Intake Total 400 1225 Output Total 350 700 Balance 50 525 Intake, IV 400 600 Intake, Oral 625 Output, Urine 350 700 Physical Exam General Appearance: Alert, Oriented X3, Cooperative, No Acute Distress Skin: No Breakdown HEENT: Atraumatic Cardiovascular: tachycardic Lungs: Clear to Auscultation, Normal Air Movement Abdomen: Normal Bowel Sounds, Soft, No Tenderness Neurological: Normal Tone Extremities: No Edema Current Medications: Current Medications Sig/Bonnie Start time Last Medication Dose Route Stop Time Status Admin Albuterol Sulfate 3 ML TID 08/10 220 AC 08/14 INH 0910 Budesonide/ 2 PUF BID 08/10 220 AC 08/14 Formoterol Fumarate INH 0750 Celecoxib 200 MG BID 08/10 220 AC 08/14 PO 0750 Dextrose/Sodium 1,000 ML Q20H 08/13 1245 AC 08/14 Chloride IV 0628 Gabapentin 400 MG Q8 08/10 2199 AC 08/14 PO 1251 Heparin Sodium 5,000 UNIT Q8 08/10 1746 AC 08/12 (Porcine) SC 205 Hydromorphone HCl 2 MG ONCE ONE 08/14 0030 DC 08/14 PO 08/14 0031 0037 Hydromorphone HCl 2 MG Q8P PRN 08/13 0830 AC 08/14 PO 0750 Ipratropium Bryan 2.5 ML TID 08/10 2199 AC 08/14 INH 0910 Lorazepam 0.25 MG Q6-PRN PRN 08/10 1800 AC 08/14 PO 08/17 1759 1300 Magnesium Oxide 400 MG ONE ONE 08/14 0945 DC 08/14 PO 08/14 0946 1043 Omeprazole 20 MG DAILY AC 08/11 0700 AC 08/14 PO 0625 Oxycodone HCl 15 MG Q8P PRN / 1800 AC 08/14 PO 1043 Patient Medication 1 ED .STK-MED ONE 08/13 1354 DC Teaching ED 08/13 1355 Phosphate 250 MG PC AND AT BEDTIME 08/13 1300 DC 08/13 PO 08/13 1801 1805 Polyethylene Glycol 17 GM DAILY PRN / 1800 AC PO Senna/Docusate Sodium 2 TAB QPM 08/10 2200 AC 08/12 PO 2058 Thiamine HCl 100 MG DAILY 08/10 1749 AC 08/14 PO 0749 Last 24 Hrs of Lab/Celestine Results Last 24 Hrs of Labs/Mics: Laboratory Tests 08/14/16 0630: Anion Gap 7, Estimated GFR > 60, BUN/Creatinine Ratio 10.0, Calcium 8.2 L, Phosphorus 3.2, Magnesium 1.5 L, Albumin 2.2 L, CBC w Diff NO MAN DIFF REQ, RBC 3.45 L, MCV 72.1 L, MCH 23.0 L, RDW 19.6 H, MPV 8.8, Gran % 67.4, Lymphocytes % 18.3 L, Monocytes % 7.2, Eosinophils % 6.5 H, Basophils % 0.6, Absolute Granulocytes 5.7, Absolute Lymphocytes 1.6, Absolute Monocytes 0.6, Absolute Eosinophils 0.6, Absolute Basophils 0, PUBS MCHC 31.9 L Assessment/Plan Assessment: 56-year-old male with PMH of lung cancer (refused biopsy and tx), sacral fracture, was brought from [place] for unwitnessed syncope/fall with altered mental status. His calcium was found to be elevated at 13.2 (with albumin of 2.7 ), with elevated alk phos of 281. Patient admitted to telemetry with the following problems addressed: Problem list: # Hypercalcemia most likely due to malignancy (lung cancer) with syncope/fall/ seizure and AMS (improved) # Hypokalemia (improved) # Hypermagnesiumia # Chronic anemia (baseline 9.7/30.5), dropping h/h # Leukocytosis # Hypercalcemia most likely due to malignancy (lung cancer), with seizure/ syncope/fall? and AMS - EKG showed flip T waves on V2 and V3, ST depression on V3. - Corrected calcium on admission was 14.3. PTH low at 7.5, Vit D level 25-oh 37.9 - He was diagnosed with lung cancer 10 months ago by his PCP and refused biopsy and treatment based on what his dad had gone through. He understands the treatment options and consequences. - One of his POA, his cousin, was upset because we did not consult her regarding hospice consult. Both myself and correctional casework specialist, Tod, spoke to pt regarding his perception of his ability to make sound decisions, and he thinks he should be able to make his decision himself as he is able to think clearly now and this is consistent with his previous wishes (no tx for lung cancer). He does not feel that it is necessary for us to get his POAs involved in hospice talk, and patient said "if callum has questions, she can come ask me". Psych has assessed him and thinks that he has capacity to make sound decisions regarding his care. His cousin (male, also his POA) was also at bedside when psych evaluated and he thinks that the patient is currently at his baseline mental state and is capable of making his own decisions. Agree with hospice evaluation. * IV hydration 75ml/hr D51/2NS +40meq KCl , due to poor po intake * Endo consult appreciated, follow recs * S/P pamidronate 60 mg. Must follow up calcium level for next week to make sure he is not hypocalcemic. Give calcium supplements as needed * Follow up 1,25VitD * Consider pth-rp * Stop Vit D supplement for now * Consider heme/onc however pt refused biopsy and treatment for lung cancer * Consult hospice * He probably needs pamidronate every 2-3 weeks for symptomatic relief of hypercalcemia even if goes to hospice * 08/14: Calcium still trending down (8.2 with alb 2.2 , so corrected around 9.3) # AMS (improved) - Prolactin 9.5 - EEG: Potentially an abnormal EEG due to very slow delta waves that are felt to be slower then expected for drowsiness or the early stages of sleep. However, without the awake state it is hard to draw definitive conclusions. Likely encephalopathy without any suggestion of any epileptiform activity. - Neurology recommended MRI and LP, however he had rods placed in his right shoulder 16-[address] Good at [facility]. We will try to obtain records. He also had rods placed in his right hip. He is currently adament about not doing MRI as he has been told since the surgery to never get an MRI. Also, if indeed MRI shows brain mets, he still does not want to treat the primary lung cancer. I have also discussed with him about the LP, and if it is going to be of any use moving forward. He will think about it. * Duralgesic patch discontinued due to concerns of AMS. * Pain control with oxycodone 15q8 and dilaudid 2mg q8 * Neuro consult placed, f/u recs * BL UE restraints discontinued * PT, ambulate to chair # Possible syncope - Echo: Normal size left ventricle. No obvious regional wall motion abnormalities. Normal left ventricular ejection fraction estimated at 60-65%. * Serial EKG and trop negative x 2 * Cardio consult appreciated (Dr. Sarmiento) * Orthostats tid * discontinue tele monitoring # Hypermagnesiumia - Mag 2.5 on admission * 08/12 mag down from 2.5 to 1.7, repleted with 1 X IV mag, improved to 1.8. * 08/13: mag 1.5, repleted 1 X mag ox * 08/14: mag still 1.5, repleted with 1X mag ox * Follow mg level, replete as needed # Hypokalemia * 08/12: K down from 3.5 to 2.8. Repleted with 2X10 KCL IV, 4 doses of 20meq klor, 40meq kcl with D51/2NS, improved to 3.5 in PM. * 08/13: K 4.5, changed IVF to D5NS at 50 ml/hr. * 08/14: 4.2 * Monitor K, keep K > 4 # Hypophosphatemia * 08/13: Phos 1.8, repleted with neutrophosx2 , improved to 3.2 # Chronic anemia (baseline 9.7/30.5), dropping h/h, currently hg 7.9 * Monitor h/h * Pt agrees to transfusion if needed (consent not signed yet) * Guaiac all stools # Mild malnutrition - albumin 2.2 # Leukocytosis (resolved) - WBC 12.8, down to 8.5 Diet: Regular diet DVT ppx:mech and pharm DNR/DNI Problem List: 1. Hypercalcemia Pain Ratin Pain Location: everywhere Pain Goal: Pain 7 or less Pain Plan: dilaudid roxicodone Tomorrow's Labs & Rationales: americo and albumin for hypercalcemia bep , mg, phos for electrolyte abnormality cbc for anemia DVT/Prophylaxis: mechanical, pharmacological EMMA FOSTER MD 08/14/16 1034: Attending MD Review Statement Attending Statement Attending MD Statement: examined this patient, discuss w/resident/PA/CONTRACT LEAD, agreed w/resident/PA/CONTRACT LEAD, reviewed EMR data (avail) Attending Assessment/Plan: Mental status is improved further today. Calcium is normal. Patient was seen by psychiatry and is competent to make his medical decisions. He has good insight into his disease process and understands the ramifications of his decisions. The patient wishes for comfort above all. He is amenable to hospice referral. Will have further discussions with patient, patient's POA's, and hospice.
[2016-08-14 07:58] LABS: ABSOLUTE BASOPHIL COUNT 0 /CUMM (0.0-0.2); ABSOLUTE EOSINOPHIL COUNT 0.6 /CUMM (0.0-0.7); ABSOLUTE GRANULOCYTE CT 5.7 /CUMM (1.4-6.5); ABSOLUTE LYMPH COUNT 1.6 /CUMM (1.2-3.4); ABSOLUTE MONOCYTE COUNT 0.6 /CUMM (0.10-0.60); BASOPHIL % 0.6 % (0.0-2.0); EOSINOPHIL % 6.5 % (0-5); GRANULOCYTE % 67.4 % (42.2-75.2); HEMATOCRIT 24.8 % (42-52); MEAN CORPUSCULAR HGB CONC 31.9 G/DL (33.0-37.0); MEAN CORPUSCULAR VOLUME 72.1 FL (80.0-94.0); MEAN PLATELET VOLUME 8.8 FL (7.4-10.4); PLATELET COUNT 350 /CUMM (130-400); RBC DISTRIBUTION WIDTH 19.6 % (11.5-14.5); RED BLOOD CELL CT 3.45 /CUMM (4.70-6.10); WHITE BLOOD CELL COUNT 8.5 /CUMM (4.8-10.8)
[2016-08-14 08:00] VITALS: BP 116/60
[2016-08-14 15:30] VITALS: BP 108/58
--- NOTE | 2016-08-14 15:39 | PN- Psychiatry ---
Assessment/Plan Impression: Identifying Info: 56-year-old male brought to [facility] emergency department on 08/10/2016 from [place] with altered mental status. He was subsequently diagnosed with hypercalcemia likely due to lung cancer and probable syncope, Hypermagnesiumia, hypokalemia, and hypophosphatemia and was admitted to medicine. SUBJECTIVE Patient presents today with no complaints. Continues to express wish for no treatment for lung cancer. Discusses his preferences for care moving forward and [facility] He would rather stay someplace close. He fears she may not be able to return home due to steep and rickety steps. He denies any mood issues and declines any psychotropic medications to help with mood or anxiety at this point. Brief ROS Gait: Unsteady, HRTF Sleep: Adequate Appetite: Adequate OBJECTIVE Mental Status Exam Presentation/Appearance: Cooperative with evaluation. Hospital garb. Lying in bed Orientation: Oriented to self, situation, and place, continued issues recalling date but can name year and season Sensorium: Awake and alert Eye contact: Appropriate Affect: Broad and congruent with stated mood Mood: "I'm good" Depression: Denies Anxiety: Denies Thought Content: - Denies SI/HI, AH/VH, PI. States and also believes they will not kill themselves. - Denies Hopeless/Helpless Thoughts Thought Process: Linear and goal directed Speech: Normal tone and rate Judgment: Intact Insight: Intact Cognition: Memory: Continues to endorse short-term deficits but is able to remember yesterday's interview well. Attention/Concentration: Grossly intact attends well to interview ASSESSMENT 56-year-old male with with lung cancer and currently declines treatment with a recent history of acute confusional episode. He again presents today as alert and oriented. Differential diagnosis Delirium related to electrolyte abnormalities and medication, resolved Suggestion: 1. Please continue to avoid benzodiazepines, opioid analgesics, and meds with strong anticholinergic properties as much as possible to prevent return to confusion. 2. Please continue the following nonpharmacologic interventions: -Avoid nursing and medical procedures during sleep hours whenever possible - Cluster at night interventions that must be completed as much as possible to minimize sleep disruption - Decrease noise patient area during sleeping hours - Reduce lighting at night - Ensure patient has any sensory aids close by that he regularly uses 3. While patient has capacity at present it would be useful to include family/ POAs in patient's care planning as much as possible if he consents to their inclusion to ensure care continuity post discharge. Consult legal for any questions regarding legal rights and responsibilities in healthcare decision- making. 4. Please reconsult psychiatry as necessary if patient's mental status changes. Thank you for including psychiatry in this case, we will follow on an as-needed basis going forward. Juan Pablo Lance APRN, pager [phone]. Subjective Subjective: . Objective Last 24 Hrs of Vital Signs/I&O Current Medications Sig/Bonnie Start time Last Medication Dose Stop Time Status Admin Melatonin 5 MG AT BEDTIME 08/14 2200 AC (Melatonin) Polyethylene Glycol 17 GM DAILY PRN 08/10 1800 AC (Miralax) Vital Signs Date Time Temp Pulse Resp B/P Pulse O2 O2 Flow FiO2 Ox Delivery Rate 08/14 0920 97 Room Air 08/15 799 98.2 109 20 116/60 96 08/14 0041 98.8 113 20 118/80 94 08/13 1855 94 Room Air Intake & Output 08/14 1600 08/14 0800 08/14 0000 Intake Total 4790 617 9758 Output Total 800 350 700 Balance 320 50 525 Intake, IV 400 400 600 Intake, Oral 720 625 Output, Urine 800 350 700
--- NOTE | 2016-08-14 16:00 | PN- Endocrinology ---
Assessment/Plan Assessment: 56-year-old male with past medical history significant for fibromyalgia, hypertension, recent admission to [facility] for sacral fracture after fall which could be related underlying bony lesion. He has hx of lung cancer and has refused diagnostic procedures and treatment. Today patient presented to the hospital with lethargy and confusion. In ER, his calcium was 13.2, Cr 1.0, Mg 2.5, PHOS 3.7, albumin 2.7 and AKP 282 ( corrected calcium 14.3). His PTH was only 7.5. His hypercalcemia probably is related to underlying maligancy He had EKG changes and troponin has been negative. He received pamidronate 60 mg iv on 08/10/2016. calcium was 12.2 on 08/11/2016. Repeat calcium was down to 9.6 on 08/12/2016. He feels better and has been eating his meals. On 08/14/2016, repeat calcium 8.2 and albumin 2.2 ( corrected calcium 9.6). Mg was 1.5. He was given Magnesium supplement. Plan: His calcium level continue improving; agree with magnesium supplement; continue monitoring calcium and albumin. I will consider giving patient calcium supplement if corrected calcium level is less than 9.0. Subjective Subjective: He feels better clinically. Objective Last 24 Hrs of Vital Signs/I&O Vital Signs Date Time Temp Pulse Resp B/P Pulse O2 O2 Flow FiO2 Ox Delivery Rate 08/14 0920 97 Room Air 08/15 799 98.2 109 20 116/60 96 08/14 0041 98.8 113 20 118/80 94 08/13 1855 94 Room Air Intake & Output 08/14 1600 08/14 0808/14 0000 Intake Total 5896 198 4383 Output Total 800 350 700 Balance 320 50 525 Intake, IV 400 400 600 Intake, Oral 720 625 Output, Urine 800 350 700 Results Pertinent Lab/Celestine Results: Laboratory Tests 08/14 629 Chemistry Sodium (137 - 145 mmol/L) 139 Potassium (3.5 - 5.1 mmol/L) 4.2 Chloride (98 - 107 mmol/L) 108 H Carbon Dioxide (22 - 30 mmol/L) 23 Anion Gap (5 - 16) 7 BUN (9 - 20 mg/dL) 9 Creatinine (0.7 - 1.2 mg/dL) 0.9 Estimated GFR (>60 ml/min) > 60 BUN/Creatinine Ratio (7 - 25 %) 10.0 Calcium (8.4 - 10.2 mg/dL) 8.2 L Phosphorus (2.5 - 4.5 mg/dL) 3.2 Magnesium (1.6 - 2.3 mg/dL) 1.5 L Albumin (3.5 - 5.0 g/dL) 2.2 L Hematology CBC w Diff NO MAN DIFF REQ WBC (4.8 - 10.8 /CUMM) 8.5 RBC (4.70 - 6.10 /CUMM) 3.45 L Hgb (14.0 - 18.0 G/DL) 7.9 L Hct (42 - 52 %) 24.8 L MCV (80.0 - 94.0 FL) 72.1 L MCH (27.0 - 31.0 PG) 23.0 L RDW (11.5 - 14.5 %) 19.6 H Plt Count (130 - 400 /CUMM) 350 MPV (7.4 - 10.4 FL) 8.8 Gran % (42.2 - 75.2 %) 67.4 Lymphocytes % (20.5 - 51.1 %) 18.3 L Monocytes % (1.7 - 9.3 %) 7.2 Eosinophils % (0 - 5 %) 6.5 H Basophils % (0.0 - 2.0 %) 0.6 Absolute Granulocytes (1.4 - 6.5 /CUMM) 5.7 Absolute Lymphocytes (1.2 - 3.4 /CUMM) 1.6 Absolute Monocytes (0.10 - 0.60 /CUMM) 0.6 Absolute Eosinophils (0.0 - 0.7 /CUMM) 0.6 Absolute Basophils (0.0 - 0.2 /CUMM) 0 PUBS MCHC (33.0 - 37.0 G/DL) 31.9 L
[2016-08-14] MEDS ORDERED: DILAUDID2 M1 PO (16:30)
--- NOTE | 2016-08-14 16:34 | Patient Discharge Instructions ---
Discharge Instructions General Discharge Information You were seen/treated for: - Hypercalcemia most likely due to lung cancer - Altered mental status - Recurrent falls, unsteady gait - Hypokalemia - Hypophosphatemia - Hypomagnesiumia - Anemia Special Instructions: - Monitor calcium level regularly (daily for 1 week, then every 2-3days) - Consider supplement if corrected calcium less than 9 - Needs bisphosphonate every 2-3 weeks - Follow up with PCP - Monitor H/H - Follow up with oncology and endocrinology for hypercalcemia -We recommend Ensure compact, Ensure clear, Magic cup all 3 times a day. Diet Continue normal diet: Yes Activity Full Activity/No Limits: No Activity Self Limited: Yes Additional ACTIVITY Info: High fall risk. Acute Coronary Syndrome Inclusion Criteria At DC or during hospital stay patient has or had the following: ACS DIAGNOSIS No Discharge Core Measures Meds if any: Prescribed or Continued at Discharge Meds if any: NOT Prescribed or Continued at Discharge Congestive Heart Failure Inclusion Criteria At DC or during hospital stay patient has or had the following: CHF DIAGNOSIS No Discharge Core Measures Meds if any: Prescribed or Continued at Discharge Meds if any: NOT Prescribed or Continued at Discharge Cerebrovascular accident Inclusion Criteria At DC or during hospital stay patient has or had the following: CVA/TIA Diagnosis No Discharge Core Measures Meds if any: Prescribed or Continued at Discharge Meds if any: NOT Prescribed or Continued at Discharge Venous thromboembolism Inclusion Criteria VTE Diagnosis No VTE Type NONE VTE Confirmed by (Test) NONE Discharge Core Measures - Per Current guidelines, there needs to be overlap - treatment for the first 5 days of Warfarin therapy. - If discharged on Warfarin prior to 5 days of - overlap therapy, the patient will need to be - assessed for post discharge needs including - *Post discharge parental anticoagulation - *Warfarin and/or parental anticoagulation education - *Follow up date to check INR post discharge At least 5 days overlap therapy as Inpatient No Meds if any: Prescribed or Continued at Discharge Note: Overlap Therapy is Warfarin and Anticoagulant Meds if any: NOT Prescribed or Continued at Discharge
--- NOTE | 2016-08-14 19:07 | PN- Cardiology ---
Subjective Subjective: STable without changes from a cardiovascular standpoint. Objective Vital Signs and I&Os Vital Signs Date Time Temp Pulse Resp B/P Pulse O2 O2 Flow FiO2 Ox Delivery Rate 08/14 1600 Room Air 08/14 1530 98.9 121 20 108/58 94 Room Air 08/14 0920 97 Room Air 08/14 0800 98.2 109 20 116/60 96 / 0041 98.8 113 20 118/80 94 Intake & Output 08/14 1600 08/14 0808/14 0000 08/13 1600 08/13 0808/13 0000 Intake Total 3471 032 2554 942.5 680 1280 Output Total 800 350 700 650 600 Balance 320 50 525 292.5 680 680 Intake, IV 400 400 600 597.5 800 Intake, Oral 720 625 345 680 480 Number 1 2 Bowel Movements Output, Urine 800 350 700 650 600 Current Medications: Current Medications Sig/Bonnie Start time Last Medication Dose Route Stop Time Status Admin Albuterol Sulfate 3 ML TID 08/10 2199 AC 08/14 INH 1416 Budesonide/ 2 PUF BID 08/10 2199 AC 08/14 Formoterol Fumarate INH 0750 Celecoxib 200 MG BID 08/10 2199 AC 08/14 PO 0750 Dextrose/Sodium 1,000 ML Q20H / 1245 AC 08/14 Chloride IV 0628 Gabapentin 400 MG Q8 08/10 2199 AC 08/14 PO 1251 Heparin Sodium 5,000 UNIT Q8 08/10 1746 AC 08/12 (Porcine) SC 2057 Hydromorphone HCl 2 MG ONCE ONE 08/14 1400 DC 08/14 PO 08/14 1401 1409 Hydromorphone HCl 2 MG ONCE ONE 08/14 0030 DC 08/14 PO 08/14 0031 0037 Hydromorphone HCl 2 MG Q8P PRN 08/13 0830 AC 08/14 PO 1555 Ipratropium [place] 2.5 ML TID 08/10 220 AC 08/14 INH 1416 Lorazepam 0.25 MG Q6-PRN PRN 08/10 1800 AC 08/14 PO 08/17 1759 1300 Magnesium Oxide 400 MG ONE ONE 08/14 0945 DC 08/14 PO 08/14 0946 1043 Melatonin 5 MG AT BEDTIME 08/14 2199 AC PO Omeprazole 20 MG DAILY AC 08/11 0700 AC 08/14 PO 0625 Oxycodone HCl 15 MG Q8P PRN 08/10 1800 AC 08/14 PO 1043 Polyethylene Glycol 17 GM DAILY PRN 08/10 1800 AC PO Senna/Docusate Sodium 2 TAB QPM 08/10 2200 AC 08/12 PO 2058 Thiamine HCl 100 MG DAILY 08/10 1749 AC 08/14 PO 0749 Results Last 48 Hrs of Labs/Mics: Laboratory Tests 08/14/16 0630: Anion Gap 7, Estimated GFR > 60, BUN/Creatinine Ratio 10.0, Calcium 8.2 L, Phosphorus 3.2, Magnesium 1.5 L, Albumin 2.2 L, CBC w Diff NO MAN DIFF REQ, RBC 3.45 L, MCV 72.1 L, MCH 23.0 L, RDW 19.6 H, MPV 8.8, Gran % 67.4, Lymphocytes % 18.3 L, Monocytes % 7.2, Eosinophils % 6.5 H, Basophils % 0.6, Absolute Granulocytes 5.7, Absolute Lymphocytes 1.6, Absolute Monocytes 0.6, Absolute Eosinophils 0.6, Absolute Basophils 0, PUBS MCHC 31.9 L 08/13/16 1014: Anion Gap 8, Estimated GFR > 60, BUN/Creatinine Ratio 10.0, Calcium 8.8, Phosphorus 1.8 L, Magnesium 1.5 L, Albumin 2.2 L, CBC w Diff NO MAN DIFF REQ, RBC 3.42 L, MCV 72.5 L, MCH 22.8 L, RDW 18.7 H, MPV 8.9, Gran % 69.7, Lymphocytes % 19.0 L, Monocytes % 6.6, Eosinophils % 4.3, Basophils % 0.4, Absolute Granulocytes 7.1 H, Absolute Lymphocytes 1.9, Absolute Monocytes 0.7 H, Absolute Eosinophils 0.4, Absolute Basophils 0, PUBS MCHC 31.4 L Assessment/Plan Assessment/Plan Assessment: 1. Possible syncope-no evidence of any significant arrhythmias 2. Abnormal ECG-possibly related to hypercalcemia. 3. Hypercalcemia-as noted, likely related to malignancy. 4. Known history of lung malignancy 5. Worsening microcytic anemia 6. Mental status changes - improved Recommendations: - COntinue as per the medical and endocrinology services. - Further discussions about goals of care pending - No further cardiac testing indicated at the present time Continue telemetry? No
[2016-08-15 00:45] VITALS: BP 100/60
--- NOTE | 2016-08-15 06:44 | PN- Housestaff ---
VANESSA HE,TAMI 08/15/16 0644: Subjective Follow-up For: hypercalcemia Subjective: Pt seen this morning, he has decided to go back to [place] for hospice he has been eating more. He spiked to 100.6, resolved with tylenol. ROS negative otherwise. He is now refusing transfusions unless he is obviously bleeding profusely. His pain is better controlled, now rated as 8/10. He accidentally pulled out the IV last night when he was walking around, has a new IV now. Pt's PCP is Yo Rutherford, please send dc summary to him as well. Review of Systems Constitutional: Reports: see HPI. Objective Last 24 Hrs of Vital Signs/I&O Vital Signs Date Time Temp Pulse Resp B/P Pulse O2 O2 Flow FiO2 Ox Delivery Rate 08/15 0200 97.9 08/15 0045 100.6 115 20 100/60 92 Room Air 08/15 0030 100.4 08/15 0000 Room Air 08/14 2033 93 Room Air Room Air 08/14 1600 Room Air 08/14 1530 98.9 121 20 108/58 94 Room Air 08/14 0920 97 Room Air Intake & Output 08/15 1600 08/15 0800 08/15 0000 Intake Total 450 625 Output Total 500 Balance 450 125 Intake, IV 350 400 Intake, Oral 100 225 Output, Urine 500 Physical Exam General Appearance: Alert, Cooperative, No Acute Distress Skin: No Significant Lesion HEENT: Atraumatic Cardiovascular: Regular Rate, Normal S1, Normal S2, No Murmurs, Gallops, Rubs, tachycardic Lungs: Clear to Auscultation Abdomen: Normal Bowel Sounds, Soft, No Tenderness Neurological: Normal Speech, Strength at 5/5 X4 Ext Extremities: No Edema Current Medications: Current Medications Sig/Bonnie Start time Last Medication Dose Route Stop Time Status Admin Acetaminophen 650 MG ONCE ONE 08/15 003 DC 08/15 PO 08/15 0031 0030 Albuterol Sulfate 3 ML TID 08/10 2199 AC 08/14 INH 2030 Budesonide/ 2 PUF BID 08/10 2199 AC 08/14 Formoterol Fumarate INH 2107 Celecoxib 200 MG BID 08/10 2199 AC 08/14 PO 2105 Dextrose/Sodium 1,000 ML Q20H 08/13 1245 AC 08/15 Chloride IV 0050 Gabapentin 400 MG Q8 08/10 2199 AC 08/15 PO 0500 Heparin Sodium 5,000 UNIT Q8 08/10 1746 AC 08/12 (Porcine) SC 205 Hydromorphone HCl 2 MG ONCE ONE 08/14 1400 DC 08/14 PO 08/14 1401 1409 Hydromorphone HCl 2 MG Q8P PRN 08/13 0830 AC 08/15 PO 0033 Ipratropium [place] 2.5 ML TID 08/10 2199 AC 08/14 INH 2030 Lorazepam 0.25 MG Q6-PRN PRN 08/10 1800 AC 08/14 PO 08/17 1759 1300 Magnesium Oxide 400 MG ONE ONE 08/14 0945 DC 08/14 PO 08/14 0946 1043 Melatonin 5 MG AT BEDTIME 08/14 2199 AC 08/14 PO 2105 Omeprazole 20 MG DAILY AC 08/11 0700 AC 08/15 PO 0652 Oxycodone HCl 15 MG Q8P PRN 08/10 1800 AC 08/15 PO 0449 Polyethylene Glycol 17 GM DAILY PRN 08/10 1800 AC PO Senna/Docusate Sodium 2 TAB QPM 08/10 220 AC 08/14 PO 2105 Thiamine HCl 100 MG DAILY 08/10 1749 AC 08/14 PO 0749 Assessment/Plan Assessment: 56-year-old male with PMH of lung cancer (refused biopsy and tx), sacral fracture, was brought from [place] for unwitnessed syncope/fall with altered mental status. His calcium was found to be elevated at 13.2 (with albumin of 2.7 ), with elevated alk phos of 281. Patient admitted to telemetry with the following problems addressed: Problem list: # Hypercalcemia most likely due to malignancy (lung cancer) with syncope/fall/ seizure and AMS (improved) # Hypokalemia (improved) # Hypermagnesiumia # Chronic anemia (baseline 9.7/30.5), dropping h/h # Leukocytosis # Hypercalcemia most likely due to malignancy (lung cancer), with seizure/ syncope/fall? and AMS - EKG showed flip T waves on V2 and V3, ST depression on V3. - Corrected calcium on admission was 14.3. PTH low at 7.5, Vit D level 25-oh 37.9 - He was diagnosed with lung cancer 10 months ago by his PCP and refused biopsy and treatment based on what his dad had gone through. He understands the treatment options and consequences. - One of his POA, his cousin, was upset because we did not consult her regarding hospice consult. Both myself and casey saw operator, Tod, spoke to pt regarding his perception of his ability to make sound decisions, and he thinks he should be able to make his decision himself as he is able to think clearly now and this is consistent with his previous wishes (no tx for lung cancer). He does not feel that it is necessary for us to get his POAs involved in hospice talk, and patient said "if callum has questions, she can come ask me". Psych has assessed him and thinks that he has capacity to make sound decisions regarding his care. His cousin (male, also his POA) was also at bedside when psych evaluated and he thinks that the patient is currently at his baseline mental state and is capable of making his own decisions. Agree with hospice evaluation. * IV hydration 75ml/hr D51/2NS +40meq KCl , due to poor po intake * Endo consult appreciated, follow recs * S/P pamidronate 60 mg. Must follow up calcium level for next week to make sure he is not hypocalcemic. Give calcium supplements as needed * Follow up 1,25VitD * Consider pth-rp * Stop Vit D supplement for now * Consider heme/onc however pt refused biopsy and treatment for lung cancer * Consult hospice * He probably needs pamidronate every 2-3 weeks for symptomatic relief of hypercalcemia even if goes to hospice * 08/15: corrected calcium 9.1. Consider ca supplement if corrected ca less than 9 * Discharge to [facility] today # AMS (improved) - Prolactin 9.5 - EEG: Potentially an abnormal EEG due to very slow delta waves that are felt to be slower then expected for drowsiness or the early stages of sleep. However, without the awake state it is hard to draw definitive conclusions. Likely encephalopathy without any suggestion of any epileptiform activity. - Neurology recommended MRI and LP, however he had rods placed in his right shoulder 16-[address] Good at [facility]. We will try to obtain records. He also had rods placed in his right hip. He is currently adament about not doing MRI as he has been told since the surgery to never get an MRI. Also, if indeed MRI shows brain mets, he still does not want to treat the primary lung cancer. I have also discussed with him about the LP, and if it is going to be of any use moving forward. He will think about it. * Duralgesic patch discontinued due to concerns of AMS. * Pain control with oxycodone 15q8 and dilaudid 2mg q8 * Neuro consult placed, f/u recs * BL UE restraints discontinued * PT, ambulate to chair # Possible syncope - Echo: Normal size left ventricle. No obvious regional wall motion abnormalities. Normal left ventricular ejection fraction estimated at 60-65%. * Serial EKG and trop negative x 2 * Cardio consult appreciated (Dr. Sarmiento) * Orthostats tid * discontinue tele monitoring # Hypermagnesiumia - Mag 2.5 on admission * 08/12 mag down from 2.5 to 1.7, repleted with 1 X IV mag, improved to 1.8. * 08/13: mag 1.5, repleted 1 X mag ox * 08/14: mag still 1.5, repleted with 1X mag ox * Follow mg level, replete as needed # Hypokalemia * 08/12: K down from 3.5 to 2.8. Repleted with 2X10 KCL IV, 4 doses of 20meq klor, 40meq kcl with D51/2NS, improved to 3.5 in PM. * 08/13: K 4.5, changed IVF to D5NS at 50 ml/hr. * 08/14: 4.2 * Monitor K, keep K > 4 # Hypophosphatemia * 08/13: Phos 1.8, repleted with neutrophosx2 , improved to 3.2 # Chronic anemia (baseline 9.7/30.5), dropping h/h, currently hg 7.2 * Monitor h/h * Pt refused transfusion unless he is obviously hemorrhaging * Guaiac all stools * Stop heparin 08/15 # Mild malnutrition - albumin 2.2 # Leukocytosis (resolved) - WBC 12.8, down to 8.5 Diet: Regular diet DVT [facility] DNR/DNI Problem List: 1. Hypercalcemia Pain Ratin Pain Location: everywhere Pain Goal: Pain 7 or less Pain Plan: dilaudid roxicodone Tomorrow's Labs & Rationales: none DVT/Prophylaxis: mechanical CRISTIAN HEANITATERA 08/15/16 1113: Attending MD Review Statement Attending Statement Attending MD Statement: examined this patient, discuss w/resident/PA/EMS INSTRUCTOR, agreed w/resident/PA/EMS INSTRUCTOR, reviewed EMR data (avail) Attending Assessment/Plan: Mental status is improved further today. Calcium is normal. Patient was seen by psychiatry and is competent to make his medical decisions. He has good insight into his disease process and understands the ramifications of his decisions. The patient wishes for comfort above all. Patient is stable for discharge to [place] for [facility] care and hospice care. May follow up with oncology as outpatient for Pamidronate infusions if calcium becomes too high and causes symptoms.
[2016-08-15 08:02] LABS: ABSOLUTE EOSINOPHIL COUNT 0.6 /CUMM (0.0-0.7); ABSOLUTE MONOCYTE COUNT 0.8 /CUMM (0.10-0.60); MEAN PLATELET VOLUME 8.9 FL (7.4-10.4)
[2016-08-15 08:30] VITALS: BP 100/60
--- NOTE | 2016-08-15 08:31 | PN- Endocrinology ---
Assessment/Plan Assessment: 56-year-old male with past medical history significant for fibromyalgia, hypertension, recent admission to [facility] for sacral fracture after fall which could be related underlying bony lesion. He has hx of lung cancer and has refused diagnostic procedures and treatment. Today patient presented to the hospital with lethargy and confusion. In ER, his calcium was 13.2, Cr 1.0, Mg 2.5, PHOS 3.7, albumin 2.7 and AKP 282 ( corrected calcium 14.3). His PTH was only 7.5. His hypercalcemia probably is related to underlying maligancy He had EKG changes and troponin has been negative. He received pamidronate 60 mg iv on 08/10/2016. calcium was 12.2 on 08/11/2016. Repeat calcium was down to 9.6 on 08/12/2016. He feels better and has been eating his meals. On 08/14/2016, repeat calcium 8.2 and albumin 2.2 ( corrected calcium 9.6). Mg was 1.5. He was given Magnesium supplement. on 08/15/2016, repeat calcium 7.8, albumin 2.3, Mg 1.6 ( corrected calcium 9.1). He has been asymptomatic. Patient has made the decision. He won't consider any diagnostic procedures and treatment for his cancer. He will be discharged to senior living and then consider hospice care. Plan: continue monitoring calcium and albumin. I will consider giving patient calcium supplement if corrected calcium level is less than 9.0. Subjective Subjective: He feels well at this point. Objective Last 24 Hrs of Vital Signs/I&O Vital Signs Date Time Temp Pulse Resp B/P Pulse O2 O2 Flow FiO2 Ox Delivery Rate 08/15 0200 97.9 08/15 0045 100.6 115 20 100/60 92 Room Air 08/15 0030 100.4 08/15 0000 Room Air 08/14 2032 93 Room Air Room Air 08/14 1600 Room Air 08/14 1530 98.9 121 20 108/58 94 Room Air 08/14 0920 97 Room Air Intake & Output 08/15 1600 08/15 0800 08/15 0000 Intake Total 450 625 Output Total 500 Balance 450 125 Intake, IV 350 400 Intake, Oral 100 225 Output, Urine 500 Results Pertinent Lab/Celestine Results: Laboratory Tests 08/15 614 Chemistry Sodium (137 - 145 mmol/L) 137 Potassium (3.5 - 5.1 mmol/L) 4.3 Chloride (98 - 107 mmol/L) 110 H Carbon Dioxide (22 - 30 mmol/L) 20 L Anion Gap (5 - 16) 7 BUN (9 - 20 mg/dL) 11 Creatinine (0.7 - 1.2 mg/dL) 0.8 Estimated GFR (>60 ml/min) > 60 BUN/Creatinine Ratio (7 - 25 %) 13.8 Calcium (8.4 - 10.2 mg/dL) 7.8 L Phosphorus (2.5 - 4.5 mg/dL) 3.3 Magnesium (1.6 - 2.3 mg/dL) 1.6 Albumin (3.5 - 5.0 g/dL) 2.3 L Hematology CBC w Diff Pending WBC Pending RBC Pending Hgb Pending Hct Pending MCV Pending MCH Pending RDW Pending Plt Count Pending MPV Pending PUBS MCHC Pending
[2016-08-15 08:49] LABS: ABSOLUTE BASOPHIL COUNT 0.1 /CUMM (0.0-0.2); ABSOLUTE GRANULOCYTE CT 6.2 /CUMM (1.4-6.5); ABSOLUTE LYMPH COUNT 1.7 /CUMM (1.2-3.4); BASOPHIL % 0.6 % (0.0-2.0); EOSINOPHIL % 6.4 % (0-5); GRANULOCYTE % 66.1 % (42.2-75.2); HEMATOCRIT 22.7 % (42-52); MEAN CORPUSCULAR HGB 22.5 PG (27.0-31.0); MEAN CORPUSCULAR HGB CONC 31.6 G/DL (33.0-37.0); MEAN CORPUSCULAR VOLUME 71.3 FL (80.0-94.0); PLATELET COUNT 326 /CUMM (130-400); RBC DISTRIBUTION WIDTH 19.5 % (11.5-14.5); RED BLOOD CELL CT 3.19 /CUMM (4.70-6.10); WHITE BLOOD CELL COUNT 9.4 /CUMM (4.8-10.8)
--- NOTE | 2016-08-15 09:08 | Discharge Summary ---
Visit Information Visit Dates Admission Date: 08/10/16 Discharge Date: 08/15/16 Hospital Course Course Attending Physician: EMMA FOSTER MD Primary Care Physician: Dr. Yo Rutherford Consulting Request: 1 Consulting Specialty: Cardiology Consulting Request: 2 Consulting Specialty: Endocrinology Consulting Request: 3 Consulting Specialty: Psychiatry Hospital Course: This is a 56-year-old gentleman with past medical history significant for of lung cancer (refused biopsy and tx), sacral fracture, was brought from [place] for unwitnessed syncope/fall with altered mental status. His vitals on admission were T 97, HR 118, RR 22, BP 120/76, O2 sats 92% on 2 L On physical exam patient noted alert but confused, HEENT PERRLA EOMI, neck supple, dry mucous membrane, heart S1-S2 normal without murmur, noted decrease air entry at left lung bases, abdomen soft nontender nondistended with preserved fall sounds, no peripheral edema, no focal gross neuro deficit. His labs were significant for anemia with H&H of 9.7/30.5, K3.6, NA 137, BUN 18, creatinine 1, Ca 13.2 with corrected calcium of 14.3, albumin 2.7, magnesium 2.5 , initial troponin negative, alkaline phosphatase 281, phosphorus 3.7, 25- hydroxy vitamin D 37.9, PTH 7.5, prolactin 9.5. EKG revealed normal sinus rhythm at rate of 109, RBBB, ST-T depression in anterolateral leads new from previous EKG with QTC of 437 CT head and cervical spine without contrast noted without acute intracranial pathology or cervical spine fracture. Chest x-ray revealed persistent masslike opacity in the left hilum extending into left upper and midlung with bilateral reticular opacity left more than right. Patient admitted to telemetry. The following problems were addressed during the course of his hospital stay: #Hypercalcemia most likely due to malignancy (lung cancer), with seizure/syncope /fall? and AMS EKG showed flip T waves on V2 and V3, ST depression on V3. Corrected calcium on admission was 14.3. PTH low at 7.5, Vit D level 25-oh 37.9. He was diagnosed with lung cancer 10 months ago by his PCP and refused biopsy and treatment based on what his dad had gone through. He understands the treatment options and consequences. The patient was maintained on IV hydration 75ml/hr D51/2NS +40meq KCl , due to poor po intake. Endocrinology was consulted and they recommendations were followed. The patient is S/P pamidronate 60 mg. vitamin D supplement was discontinued. * Must follow up calcium level for next week to make sure he is not hypocalcemic /hypocalcemic. * Follow up 1,25VitD * Consider pth-rp * Consider heme/onc however pt refused biopsy and treatment for lung cancer * Hospice service was consulted as inpatient * He probably needs pamidronate every 2-3 weeks for symptomatic relief of hypercalcemia even if goes to hospice * 08/15: corrected calcium 9.1. Consider ca supplement if corrected ca less than 9 * Plan to Discharge to [facility] today # AMS (improved) - Prolactin 9.5 - EEG: Potentially an abnormal EEG due to very slow delta waves that are felt to be slower then expected for drowsiness or the early stages of sleep. However, without the awake state it is hard to draw definitive conclusions. Likely encephalopathy without any suggestion of any epileptiform activity. - Neurology recommended MRI and LP, however he had rods placed in his right shoulder 16-[address] Good at [facility]. We will try to obtain records. He also had rods placed in his right hip. He is currently adament about not doing MRI as he has been told since the surgery to never get an MRI. Also, if indeed MRI shows brain mets, he still does not want to treat the primary lung cancer. It was also discussed with him about the LP, and if it is going to be of any use moving forward. He will think about it. * Duralgesic patch discontinued due to concerns of AMS. * He received Pain control with oxycodone 15q8 and dilaudid 2mg q8 * PT, ambulate to chair # Possible syncope - Echo: Normal size left ventricle. No obvious regional wall motion abnormalities. Normal left ventricular ejection fraction estimated at 60-65%. ACS was ruled out with serial troponins and EKGs. Orthostatics remained negative. Cardiology was consulted who did not recommend any further testing/ workup given patient's goals of care. * Orthostats tid # Hypermagnesiumia The patient had magnesium level of 2.5 on admission * 08/12 mag down from 2.5 to 1.7, repleted with 1 X IV mag, improved to 1.8. * 08/13: mag 1.5, repleted 1 X mag ox * 08/14: mag still 1.5, repleted with 1X mag ox * Follow mg level, replete as needed # Hypokalemia * 08/12: K down from 3.5 to 2.8. Repleted with 2X10 KCL IV, 4 doses of 20meq klor, 40meq kcl with D51/2NS, improved to 3.5 in PM. * 08/13: K 4.5, changed IVF to D5NS at 50 ml/hr. * 08/14: 4.2 * Monitor K, keep K > 4 # Hypophosphatemia * 08/13: Phos 1.8, repleted with neutrophosx2 , improved to 3.2 # Chronic anemia (baseline 9.7/30.5) * H&H was monitored closely. Patient's hemoglobin dropped to 7.2 on 08/15/2016. He refused transfusion. * Guaiac all stools, monitor H&H closely. # Mild malnutrition * Albumin 2.2; encourage by mouth intake with nutritional supplements. The patient received Ensure compact, Ensure clear, Magic cup all 3 times a day while inpatient. # Leukocytosis (resolved) * WBC 12.8, down to 8.5 Diet: Regular diet DVT ppx:mech and pharm initially, later on subcutaneous heparin was discontinued because of dropping H&H. DNR/DNI #Patient was seen by psychiatry and is competent to make his medical decisions. He has good insight into his disease process and understands the ramifications of his decisions. The patient wishes for comfort above all. He was amenable to hospice referral. Further discussions with patient, patient's POA's, and hospice was held. The patient has decided to go back to [place] for hospice #[facility] website was checked for the patient on 08/15/16. Allergies: Coded Allergies: clarithromycin (From BIAXIN) (Severe, FACE AND THROAT SWELLING 07/21/16) Significant Procedures: Echocardiogram: Exam Date: 08/11/2016 FINDINGS Left Ventricle Normal size left ventricle. No obvious regional wall motion abnormalities. Normal left ventricular ejection fraction estimated at 60-65%. Right Ventricle Right ventricle not well visualized. Right Atrium Right atrium not well visualized, grossly normal. Left Atrium Normal left atrial size. Mitral Valve Mitral valve thickened. Trace mitral regurgitation. Aortic Valve Trileaflet aortic valve. Diffuse thickening (sclerosis) of the aortic valve cusps without reduced excursion. No aortic stenosis. No aortic regurgitation. Tricuspid Valve Tricuspid valve not well visualized, grossly normal. Trace to mild tricuspid regurgitation. Pulmonic Valve Pulmonic valve not well visualized. Pericardium No pericardial effusion. Great Vessels Aortic root and proximal ascending aorta not well visualized, grossly normal. CONCLUSIONS 1. THis was a technically difficult examination. 2. Aortic sclerosis is present with no valvular stenosis or insufficiency. 3. Mitral leaflet thickening is present with minimal mitral insufficiency. 4. There is no pericardial fluid detected. 5. The left ventricular chamber size and systolic function appear normal. 6. The right heart structures were not optimally assessed. Minimal to mild tricuspid insufficiency is present but the RV systolic pressure could not be assessed on this examination. Magi Sarmiento M.D. (Electronically Signed) Final Date: 11 August 2016 20:39 MEASUREMENTS (Male / Female) Normal Values 2D ECHO LV Diastolic Diameter PLAX 3.3 cm 4.2 - 5.9 / 3.9 - 5.3 cm LV Systolic Diameter PLAX 1.9 cm 2.1 - 4.0 cm LV Fractional Shortening PLAX 42.4 % 25 - 46 % LV Ejection Fraction 2D Teich 74.7 % IVS Diastolic Thickness 1.1 cm LVPW Diastolic Thickness 1.1 cm LV Relative Wall Thickness 0.7 RV Internal Dim ED PLAX 2.8 cm 1.9 - 3.8 cm LVOT Diameter 1.9 cm Aortic Root Diameter 2.9 cm LA Systolic Diameter LX 2.6 cm 3.0 - 4.0 / 2.7 - 3.8 cm LA Volume 19.0 cm 18 - 58 / 22 - 52 cm Ascending Aorta Diameter 2.6 cm DOPPLER AV Peak Velocity 146.0 cm/s AV Peak Gradient 8.5 mmHg AV Mean Velocity 100.0 cm/s AV Mean Gradient 5.0 mmHg AV Velocity Time Integral 23.0 cm LVOT Peak Velocity 127.0 cm/s LVOT Peak Gradient 6.5 mmHg LVOT Mean Velocity 82.0 cm/s LVOT Mean Gradient 3.0 mmHg LVOT Velocity Time Integral 20.7 cm LVOT Stroke Volume 58.7 cm AV Area Cont Eq vti 2.6 cm AV Area Cont Eq pk 2.5 cm MV Peak Velocity 83.5 cm/s MV Peak Gradient 2.8 mmHg MV Mean Velocity 65.2 cm/s MV Mean Gradient 2.0 mmHg Mitral E Point Velocity 78.8 cm/s Mitral A Point Velocity 74.5 cm/s Mitral E to A Ratio 1.1 MV PHT Velocity 88.6 cm/s MV Deceleration [place] 883.0 cm/s MV Pressure Half Time 30.1 ms MV Area PHT 7.3 cm MV Deceleration Time 95.0 ms PV Peak Velocity 106.0 cm/s PV Peak Gradient 4.5 mmHg PV Mean Velocity 71.8 cm/s PV Mean Gradient 2.0 mmHg PV Velocity Time Integral 14.1 cm LV E' Lateral Velocity 12.8 cm/s Mitral E to LV E' Lateral Ratio 6.2 LV E' Septal Velocity 8.7 cm/s Mitral E to LV E' Septal Ratio 9.1 Pertinent Lab Results: Laboratory Tests 08/15 08/14 0615 0630 Chemistry Sodium (137 - 145 mmol/L) 137 139 Potassium (3.5 - 5.1 mmol/L) 4.3 4.2 Chloride (98 - 107 mmol/L) 110 H 108 H Carbon Dioxide (22 - 30 mmol/L) 20 L 23 Anion Gap (5 - 16) 7 7 BUN (9 - 20 mg/dL) 11 9 Creatinine (0.7 - 1.2 mg/dL) 0.8 0.9 Estimated GFR (>60 ml/min) > 60 > 60 BUN/Creatinine Ratio (7 - 25 %) 13.8 10.0 Calcium (8.4 - 10.2 mg/dL) 7.8 L 8.2 L Phosphorus (2.5 - 4.5 mg/dL) 3.3 3.2 Magnesium (1.6 - 2.3 mg/dL) 1.6 1.5 L Albumin (3.5 - 5.0 g/dL) 2.3 L 2.2 L Hematology CBC w Diff NO MAN DIFF REQ NO MAN DIFF REQ WBC (4.8 - 10.8 /CUMM) 9.4 8.5 RBC (4.70 - 6.10 /CUMM) 3.19 L 3.45 L Hgb (14.0 - 18.0 G/DL) 7.2 *L 7.9 L Hct (42 - 52 %) 22.7 L 24.8 L MCV (80.0 - 94.0 FL) 71.3 L 72.1 L MCH (27.0 - 31.0 PG) 22.5 L 23.0 L RDW (11.5 - 14.5 %) 19.5 H 19.6 H Plt Count (130 - 400 /CUMM) 326 350 MPV (7.4 - 10.4 FL) 8.9 8.8 Gran % (42.2 - 75.2 %) 66.1 67.4 Lymphocytes % (20.5 - 51.1 %) 18.4 L 18.3 L Monocytes % (1.7 - 9.3 %) 8.5 7.2 Eosinophils % (0 - 5 %) 6.4 H 6.5 H Basophils % (0.0 - 2.0 %) 0.6 0.6 Absolute Granulocytes (1.4 - 6.5 /CUMM) 6.2 5.7 Absolute Lymphocytes (1.2 - 3.4 /CUMM) 1.7 1.6 Absolute Monocytes (0.10 - 0.60 /CUMM) 0.8 H 0.6 Absolute Eosinophils (0.0 - 0.7 /CUMM) 0.6 0.6 Absolute Basophils (0.0 - 0.2 /CUMM) 0.1 0 PUBS MCHC (33.0 - 37.0 G/DL) 31.6 L 31.9 L /07 1014 Chemistry Sodium (137 - 145 mmol/L) 138 Potassium (3.5 - 5.1 mmol/L) 4.5 Chloride (98 - 107 mmol/L) 109 H Carbon Dioxide (22 - 30 mmol/L) 21 L Anion Gap (5 - 16) 8 BUN (9 - 20 mg/dL) 8 L Creatinine (0.7 - 1.2 mg/dL) 0.8 Estimated GFR (>60 ml/min) > 60 BUN/Creatinine Ratio (7 - 25 %) 10.0 Calcium (8.4 - 10.2 mg/dL) 8.8 Phosphorus (2.5 - 4.5 mg/dL) 1.8 L Magnesium (1.6 - 2.3 mg/dL) 1.5 L Albumin (3.5 - 5.0 g/dL) 2.2 L Hematology CBC w Diff NO MAN DIFF REQ WBC (4.8 - 10.8 /CUMM) 10.2 RBC (4.70 - 6.10 /CUMM) 3.42 L Hgb (14.0 - 18.0 G/DL) 7.8 L Hct (42 - 52 %) 24.8 L MCV (80.0 - 94.0 FL) 72.5 L MCH (27.0 - 31.0 PG) 22.8 L RDW (11.5 - 14.5 %) 18.7 H Plt Count (130 - 400 /CUMM) 345 MPV (7.4 - 10.4 FL) 8.9 Gran % (42.2 - 75.2 %) 69.7 Lymphocytes % (20.5 - 51.1 %) 19.0 L Monocytes % (1.7 - 9.3 %) 6.6 Eosinophils % (0 - 5 %) 4.3 Basophils % (0.0 - 2.0 %) 0.4 Absolute Granulocytes (1.4 - 6.5 /CUMM) 7.1 H Absolute Lymphocytes (1.2 - 3.4 /CUMM) 1.9 Absolute Monocytes (0.10 - 0.60 /CUMM) 0.7 H Absolute Eosinophils (0.0 - 0.7 /CUMM) 0.4 Absolute Basophils (0.0 - 0.2 /CUMM) 0 PUBS MCHC (33.0 - 37.0 G/DL) 31.4 L Disposition Summary Disposition Principal Diagnosis: Hypercalcemia most likely due to lung cancer Additional Diagnosis: - Altered mental status - Recurrent falls, unsteady gait - Hypokalemia - Hypophosphatemia - Hypomagnesiumia - Anemia Discharge Disposition: SNF Discharge Instructions General Discharge Information Code Status: Do Not Resucitate/Intubat Patient's Diet: Regular Patient's Activity: As tolerated Follow-Up Instructions/Appts: - Monitor calcium level regularly (daily for 1 week, then every 2-3days) - Consider supplement if corrected calcium less than 9 - Needs bisphosphonate every 2-3 weeks - Follow up with PCP - Monitor H/H - Follow up with oncology and endocrinology for hypercalcemia -We recommend Ensure compact, Ensure clear, Magic cup all 3 times a day. Medications at Discharge Discharge Medications: Stop taking the following medications: Ergocalciferol (Vitamin D2) (Vitamin D2) 50,000 UNIT CAPSULE ORAL EVERY FRIDAY Ceftriaxone Sodium (Ceftriaxone) 1 GRAM VIAL INTRAMUSC DAILY Fentanyl (Fentanyl) 50 MCG/HOUR PATCH.[id number] On the skin Every 3 days Qty = 4 Hydromorphone HCl (Dilaudid) 4 MG TABLET ORAL EVERY 4 HOURS NEEDED as needed for PAIN SCALE 7-10 (SEVERE) Continue taking these medications: Oxycodone HCl (Oxycodone HCl) 15 MG TABLET 1 Tablet ORAL EVERY 8 HOURS NEEDED as needed for PAIN Comments: Last Taken: 08/15/16 Time: 5 AM Albuterol Sulfate (Proventil Hfa) 90 MCG HFA.AER.AD 2 PUFF Inhale through mouth as needed for SOB Qty = 7 Comments: Last Taken: 08/15/16 Time: 930 AM Budesonide/Formoterol Fumarate (Symbicort 160-4.5 Mcg Inhaler) 160 MCG-4.5 MCG/ ACTUATION HFA.AER.AD 2 PUFF Inhale through mouth TWICE DAILY Qty = 20 Comments: Last Taken: 08/15/16 Time: 9 AM Polyethylene Glycol 3350 (Miralax) 17 GRAM/DOSE POWDER 17 Gram ORAL DAILY as needed for constipation Qty = 30 Instructions: stop for diarrhea Comments: NOT GIVEN IN HOSPITAL Omeprazole (Omeprazole) 20 MG CAPSULE.DR 20 Milligram ORAL DAILY BEFORE BREAKFAST Qty = 30 Comments: Last Taken: 08/15/16 Time: 7 AM Celecoxib (Celebrex) 100 MG CAPSULE 200 Milligram ORAL TWICE DAILY Days = 30 Comments: Last Taken: 08/15/16 Time: 9 AM Gabapentin (Gabapentin) 400 MG CAPSULE 400 Milligram ORAL EVERY 8 HOURS Days = 30 Comments: Last Taken: 08/15/16 Time: 5 AM Multivitamin (Daily Multiple Vitamin) 1 EACH TABLET 1 Tablet ORAL DAILY Comments: NOT GIVEN IN THE HOSPITAL Docusate Sodium (Colace) 100 MG CAPSULE 1 Capsule ORAL TWICE DAILY Comments: Last Taken: 08/14/16 Time: 9 PM Thiamine HCl (Thiamine HCl) 100 MG TABLET 1 Tablet ORAL DAILY Comments: Last Taken: 08/15/16 Time: 9 AM Sennosides/Docusate Sodium (Senna S Tablet) 8.6 MG-50 MG TABLET 2 Tablet ORAL Every night Comments: Last Taken: 08/14/16 Time: 9 AM Ipratropium/Albuterol Sulfate (Iprat-Albut 0.5-3(2.5) MG/3 Ml) 0.5 MG-3 MG (2.5 MG BASE)/3 ML AMPUL.NEB 1 VIAL Inhale through mouth THREE TIMES DAILY Comments: Last Taken: 08/15/16 Time: 930 AM Lorazepam (Ativan) 0.5 MG TABLET 0.5 Tablet ORAL EVERY 6 HOURS NEEDED as needed for TREMORS Comments: Last Taken: 08/14/16 Time: 1 PM Start taking the following new medications: Hydromorphone HCl (Dilaudid) 2 MG TABLET 1 Tablet ORAL EVERY SIX HOURS NEEDED as needed for Severe pain Qty = 30 No Refills Comments: Last Taken: 08/15/16 Time: 825 AM Copies To: JENSEN HE,SOLOMON Hunter; VELVET HE,[facility]; JENNIFER HE, [place]; MICHAEL HE,[facility]
[2016-08-15 10:24] VITALS: BP 100/60
== END 2016-08-15 11:52 | DRG 425 ==
LOC: ENRESERVTM → ENRESERVDT → ERH 09:46 → ENPENDDIS 13:47 → ERHI 13:47 → 1NO 13:47
PROVIDERS: Internal Medicine; Physician Assistant; Radiology Diagnostic Radiology; Student in an Organized Health Care Education/Training Program; ADMIT Hospitalist
DX: E83.52 Hypercalcemia (principal); C34.92 Malignant neoplasm of unspecified part of left bronchus or lung; Z87.81 Personal history of (healed) traumatic fracture; E83.42 Hypomagnesemia; Z68.1 Body mass index [BMI] 19.9 or less, adult; E44.1 Mild protein-calorie malnutrition; Z66 Do not resuscitate; Z80.1 Family history of malignant neoplasm of trachea, bronchus and lung; D53.9 Nutritional anemia, unspecified; G93.41 Metabolic encephalopathy; M79.7 Fibromyalgia; F17.210 Nicotine dependence, cigarettes, uncomplicated; I10 Essential (primary) hypertension; M06.9 Rheumatoid arthritis, unspecified; R55 Syncope and collapse; E46 Unspecified protein-calorie malnutrition; R26.81 Unsteadiness on feet; E87.6 Hypokalemia; E83.39 Other disorders of phosphorus metabolism
CPT/HCPCS: 1NP; 36415; 81001; 82436; 82652; 93005; 93010; 93306; 95816; 97161-GP; 97530-GO; 99233; G0480; J1644; J2430; J3490; J7040; J7042; J7060